=== PATIENT | male | born 1965 | race Two or more races ===

== ENCOUNTER → 2024-05-06 | Outpatient (CLI) | payer MEDICARE, MEDICAID, SELFPAY | END | disposition home or self-care (01) | PROVIDERS: PCP Physician Assistant; Referring Provider Physician Assistant; Visit Provider Student in an Organized Health Care Education/Training Program | DX: T22.311D Burn of third degree of right forearm, subsequent encounter (principal); L97.414 Non-pressure chronic ulcer of right heel and midfoot with necrosis of bone; L97.512 Non-pressure chronic ulcer of other part of right foot with fat layer exposed; L97.812 Non-pressure chronic ulcer of other part of right lower leg with fat layer exposed; L97.511 Non-pressure chronic ulcer of other part of right foot limited to breakdown of skin; F41.9 Anxiety disorder, unspecified; E11.40 Type 2 diabetes mellitus with diabetic neuropathy, unspecified; Z79.4 Long term (current) use of insulin; Z86.19 Personal history of other infectious and parasitic diseases; D64.9 Anemia, unspecified | CPT/HCPCS: 11042; A9270 ==

== ENCOUNTER 2024-05-17 10:17 | Inpatient (IN) | payer MEDICARE, MEDICAID, SELFPAY ==
[2024-05-17] VITALS (9 sets, daily range): BP systolic 115–145; BP diastolic 58–88; PULSE 82–100; RESP 18–96; TEMP 36.3–36.8; O2SAT 92–97; BMI 31.8; BMI 32.9
--- NOTE | 2024-05-17 11:03 | XR_ITS ---
Examination: AP chest single view Technique: AP portable upright chest single view Exam date and time: May 17, 2024 1116 hrs. Comparison: July 18, 2017 Indications: Sepsis protocol Findings: Normal heart size No lobar pneumonia Prominent osteopenia Impression: No lobar pneumonia identified
--- NOTE | 2024-05-17 11:03 | XR_ITS ---
EXAMINATION: Ankle, right 3 views . Technique: Ankle AP, oblique, lateral 3 views Date and time of exam: May 17, 2024 1108 hrs. Indications: Right ankle redness swelling and pain infection 2 months Findings: Bimalleolar soft tissue swelling No fracture Large ankle effusion Suspicious for early cortical bone destruction involving the posterior distal tibia Impression: Suspicious for early osteomyelitis posterior distal surface of the tibia, recommend MRI ankle without contrast follow-up
--- NOTE | 2024-05-17 11:03 | EKG_ITS ---
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
--- NOTE | 2024-05-17 11:03 | XR_ITS ---
Examination: Foot, left, 3 views Technique: AP, oblique, lateral views foot, 3 views Date and time of exam: May 17, 2024 1108 hrs. Indications: Right foot redness swelling and pain this week Findings: Please see the ankle report Chronic resorptive changes involving the distal phalanx first digit Erosion medial distal first metatarsal No fracture Erosions involving the cuboid with probable pathologic fracture of the cuboid Impression: Chronic osteomyelitis distal phalanx first digit Erosions, osteomyelitis involving the cuboid with probable pathologic fracture of the cuboid, recommend MRI foot without contrast follow-up
--- NOTE | 2024-05-17 11:03 | XR_ITS ---
Examination: Duplex scan of the lower extremity, unilateral right Date and time of exam: May 17, 2024 1206 hrs. Indications: Right Beginning 3 days ago, nonhealing diabetic foot ulcer years Technique: Duplex scan of the extremity veins using B-mode/grayscale imaging and Doppler spectral analysis and color flow Attention is directed to internal echogenicity, compression and augmentation involving these veins, color flow assessment, spectral analysis Findings: Major deep venous structures in the extremity demonstrate normal course and caliber. There is no evidence of deep vein thrombosis. Normal color flow and spectral analysis Impression: Negative for DVT..
--- NOTE | 2024-05-17 11:04 | PD.EDRME ---
Rapid Medical Screening Exam RME Arrival date/time: 05/17/24 10:17 58-year-old male with past medical history of diabetes and diabetic foot wounds presents emergency department complaining of right foot and ankle edema and chills. Chief Complaint: Ankle/Foot Injury Time Seen by Provider: 05/17/24 10:56 Vital signs: Vital Signs Temperature 98.2 F 05/17/24 10:43 Pulse Rate 88 05/17/24 10:43 Respiratory Rate 19 05/17/24 10:43 Blood Pressure 115/67 05/17/24 10:43 Pulse Oximetry (%) 96 05/17/24 10:43 Oxygen Delivery Method Room Air 05/17/24 10:43 Vital signs reviewed by provider: Yes
[2024-05-17 11:57] LABS: Lactate (Lactic Acid) 3.3 mMol/L (0.4-2.0)
[2024-05-17 12:00] LABS: Collection Type, Urine Clean Catch; RBC,Urine 0 /hpf (0-3)
[2024-05-17 12:01] LABS: Basophils # (Auto) 0.1 Thou/mm3 (0.0-0.2); Basophils % (Auto) 0 % (0-2.5); Eosinophils # (Auto) 0.1 Thou/mm3 (0.0-0.5); Eosinophils % (Auto) 1 % (0-10); Hematocrit 28.6 % (41.0-53.0); Immature Granulocytes % (Auto) 8 % (0-0); Immature Granulocytes Auto 1.53 Thou/mm3 (0.00-0.00); Lymphocytes # (Auto) 1.8 Thou/mm3 (1.0-4.8); Lymphocytes % (Auto) 10 % (10-50); Mean Corpuscular HGB Conc 30.4 g/dl (31.0-37.0); Mean Corpuscular Volume 76 fL (80-100); Monocytes % (Auto) 5 % (0-12); Neutrophils # (Auto) 14.4 Thou/mm3 (1.8-7.7); Neutrophils % (Auto) 76 % (37-80); Nucleated Red Blood Cell # 0.08 Thou/mm3 (0.00-0.00); Nucleated Red Blood Cell % 0 /100 WBC (0); Platelet Count 465 Thou/mm3 (140-440); RDW Standard Deviation 42.2 fL (35.1-43.9); Red Blood Count 3.78 Miln/mm3 (4.50-5.90)
[2024-05-17 12:08] LABS: Hemoglobin 8.7 g/dL (13.5-16.0)
[2024-05-17 12:21] LABS: Amorphous Crystals,Urine Present (Absent); Bilirubin,Urine Negative (Negative); Blood,Urine Negative (Negative); Color,Urine Yellow (Lt Yel-Yel); Glucose, Urine Trace (Negative); Ketones,Urine Negative (Negative); Leukocyte Esterase,Urine Negative (Negative); Nitrite,Urine Negative (Negative); Protein,Urine 1+ (Neg - Trace); Specific Gravity,Urine 1.024 (1.001-1.035); Squamous Epithelial Cell,Urine 1 /hpf (0-5); WBC,Urine 7 /hpf (0-5)
[2024-05-17 12:24] LABS: Clarity,Urine Hazy (Clear/Hazy)
[2024-05-17 12:25] LABS: Alanine Aminotransferase 15 U/L (10-49); Albumin, Serum 3.9 gm/dL (3.5-5.0); Albumin/Globulin Ratio 0.9 (1.2-2.2); Alkaline Phosphatase 211 U/L (46-116); Anion Gap 15 (7-16); Aspartate Amino Transferase 14 U/L (0-34); BUN/Creatinine Ratio 16 Ratio (12-20); Bilirubin,Total 0.6 mg/dL (0.3-1.2); Blood Urea Nitrogen 59 mg/dL (9-23); Calcium 9.4 mg/dL (8.3-10.6); Calcium (Corrected) 9.5 mg/dL (8.5-10.1); Carbon Dioxide 17.2 mMol/L (20.0-31.0); Chloride 101 mMol/L (98-107); Creatinine (Component) 3.8 mg/dL (0.6-1.3); Estimated Creatinine Clearance 26.4 mL/min (>60); Globulin 4.2 gm/dL (2.3-3.5); Glucose 215 mg/dL (74-106); Lipase 54 U/L (12-53); Magnesium 1.5 mg/dL (1.6-2.6); Osmolality,Calculated 288 (275-295); Phosphorous 4.2 mg/dL (2.4-5.1); Procalcitonin 2.02 ng/ml (0.0-0.49); Sodium 133 mMol/L (136-145); Total Protein 8.1 gm/dL (5.7-8.2); Troponin I < 0.020 ng/mL (0.0-0.045); eGFR 17 See Note
[2024-05-17 12:26] LABS: INR 1.2 (0.9-1.3); Partial Thromboplastin Time 26.3 Seconds (22.0-36.0); Prothrombin Time 12.7 Seconds (9.0-12.2)
[2024-05-17 12:49] LABS: B-Type Natriuretic Peptide 63 pg/mL (0-100)
--- NOTE | 2024-05-17 12:53 | XR_ITS ---
Examination: CT right lower extremity, without contrast. 2-D sagittal reconstructions. 2-D coronal reconstructions. 3-D reconstructions. Date and time of exam:May 17, 2024 1333 hrs. Indications: Right ankle swelling pain with nonhealing diabetic foot ulcer noticed beginning 4 days ago CTDI: vol (mGy):7.39 DLP: (mGycm):487 Technique: Multiple 1.25 mm axial sections of the right lower leg have been obtained. 2-D sagittal and coronal reconstructions have been obtained. 3-D reconstructions have been obtained. Low dose protocols were performed. One or more of the following dose reduction techniques were used; automated exposure control, adjustment of the mA and/or KV according to patient size, use of iterative reconstruction technique. Findings: Edema in the subcutaneous fatty tissue with skin thickening Soft tissue infection with air density in the muscles of the posterior lower ankle Large area of cortical bone destruction posterior medial distal tibia axial image 241 consistent with osteomyelitis Marked bone destruction involving the cuboid with pathologic fractures as well as pathologic fractures and cortical bone destruction involving the entire anterior calcaneus Impression: Pathologic fractures involving the cuboid and anterior calcaneus with extensive osteomyelitis as above Recommend MRI ankle without contrast follow-up
--- NOTE | 2024-05-17 13:03 | PC.NURSE ---
Attempted multiple times at IV, have failed, awaiting US guided IV.
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
[2024-05-17] MEDS: PIPER/TAZO 3.375 GM 3.375 GM/50 ML BAG IV (14:04)
[2024-05-17] MEDS: Vancomycin Inj 1,000 MG in SODIUM CHLORIDE 0.9% 250 ML 250 ML 150 MG IV (14:26)
[2024-05-17] MEDS: ONDANSETRON INJ 2 MG/ML INJ 2 ML 4 MG IV (14:27)
[2024-05-17] MEDS: MORPHINE SULF INJ 10 MG/ML VIAL 4 MG IVP (14:27)
[2024-05-17] MEDS: RINGERS LACTATED 1000 ML 1,000 ML 999 ML IV (14:32)
[2024-05-17 14:55] LABS: Reflex Lactate? Y
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
[2024-05-17 16:36] LABS: Lactic Acid, 3 HR 3.5 mMol/L (0.4-2.0)
[2024-05-17] MEDS: ACETAMINOPHEN 325 MG TABLET 650 MG PO ×2 (16:36→23:29)
[2024-05-17] MEDS: SODIUM CHLORIDE 0.9% 1000 ML 1,000 ML 75 ML IV (16:45)
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
[2024-05-17] MEDS: HEPARIN SOD INJ 5000 UNIT/ML VIAL SC (18:44)
[2024-05-17] MEDS: MORPHINE SULF INJ 10 MG/ML VIAL 2 MG IVP (19:20)
--- NOTE | 2024-05-17 20:01 | PC.NURSE ---
Dr gay notified of low diastolic HR 106. States he will take a look. No new orders at this time.
--- NOTE | 2024-05-17 20:05 | PC.NURSE ---
Dr gay notified of BP low diastolic 124/46 HR 100. No new orders at this time.
--- NOTE | 2024-05-17 20:53 | PC.NURSE ---
Dr gay called to request order for nursing to be allowed to use patients own insulin pump and blood sugar monitor versus nursing to poke patient as patient requests to use his own supplies and device. Harris states it is okay and he will place an order to allow nursing to use patients own insulin and pump.
[2024-05-17] MEDS: ATORVASTATIN CALCIUM 10 MG TABLET PO (21:23)
[2024-05-17] MEDS: PIPER/TAZO INJ 3.375 GM in SODIUM CHLORIDE 0.9% (P) 50 ML IV (21:39)
[2024-05-17] MEDS: MAGNESIUM OXIDE 400 MG TABLET PO (21:39)
[2024-05-17] MEDS: GABAPENTIN 100 MG CAPSULE PO (21:39)
--- NOTE | 2024-05-17 22:32 | PC.NURSE ---
Provider ordered IV magnesium, but patient only has 1 IV. When attempted to insert another IV the patient refused and said he is a hard stick so it is pointless and he does not want another IV. Pt has zosyn that will run for 4 hours and magnesium that would run for [address] gay requesting PO mag instead of IV. Harris stated to start the zosyn and give a 1 time PO dose of magnesium and once the zosyn is done, start the IV magnesium.
[2024-05-18] VITALS (9 sets, daily range): BP systolic 121–167; BP diastolic 58–70; PULSE 78–90; RESP 16–96; TEMP 35.9–36.1; O2SAT 90–92
[2024-05-18] MEDS: Magnesium Sulfate 4 GM Ivpb 4 GM/50 ML BAG IV (00:41)
[2024-05-18] MEDS: MORPHINE SULF INJ 10 MG/ML VIAL 2 MG IVP ×2 (01:42→18:06)
[2024-05-18] MEDS: ONDANSETRON INJ 2 MG/ML INJ 2 ML 4 MG IV ×2 (01:55→18:02)
--- NOTE | 2024-05-18 03:07 | PC.NURSE ---
spoke with dr gay regarding patients heparin dosage. Heparin was given late during dayshift, so deidra stated it is okay to give the morning heparin late at the 12 hour siddhartha.
[2024-05-18] MEDS: HEPARIN SOD INJ 5000 UNIT/ML VIAL SC ×2 (05:26→21:12)
[2024-05-18] MEDS: GABAPENTIN 100 MG CAPSULE PO ×3 (05:27→21:11)
[2024-05-18] MEDS: PIPER/TAZO INJ 3.375 GM in SODIUM CHLORIDE 0.9% (P) 50 ML IV ×3 (05:27→21:12)
[2024-05-18] MEDS: METOCLOPRAMIDE INJ 5 MG/ML VIAL 2 ML IVP (06:26)
[2024-05-18] MEDS: traMADol HCL 50 MG TABLET PO (06:33)
--- NOTE | 2024-05-18 07:47 | PC.NURSE ---
pt's blood sugar is 213 on his own monitor, he says he'll given himself 20 units
--- NOTE | 2024-05-18 09:13 | XR_ITS ---
Examination: Arterial duplex lower extremity study. Date and time of exam: May 18, 2024 1012 hrs. Indication: Right foot swelling infection obtained 4 days, history diabetes Findings: Duplex sonographic imaging of the lower extremity arteries using B-mode/Becker scale imaging and Doppler spectral analysis and color flow. Ankle brachial indices have been recorded. Right common femoral artery demonstrates triphasic flow. Right superficial femoral artery demonstrates triphasic flow. Right popliteal artery demonstrates triphasic flow. Right posterior tibial artery demonstrated monophasic flow. Right ankle/brachial index is .8. Left common femoral artery demonstrates triphasic flow. Left superficial femoral artery demonstrates triphasic flow. Left popliteal artery demonstrates triphasic flow. Left posterior tibial artery demonstrated triphasic flow. Left ankle/brachial index is 0.8. Impression: Severe bilateral peripheral obstructive arterial disease, consider correlation with CTA abdominal aorta iliofemoral runoff post intravenous contrast
[2024-05-18 12:35] LABS: Basophils # (Auto) 0.1 Thou/mm3 (0.0-0.2); Basophils % (Auto) 1 % (0-2.5); Eosinophils % (Auto) 0 % (0-10); Hematocrit 26.5 % (41.0-53.0); Immature Granulocytes % (Auto) 12 % (0-0); Immature Granulocytes Auto 1.98 Thou/mm3 (0.00-0.00); Lymphocytes # (Auto) 1.5 Thou/mm3 (1.0-4.8); Lymphocytes % (Auto) 9 % (10-50); Mean Corpuscular HGB Conc 32.1 g/dl (31.0-37.0); Mean Corpuscular Hemoglobin 23.2 pg (25.0-35.0); Mean Corpuscular Volume 72 fL (80-100); Monocytes % (Auto) 6 % (0-12); Neutrophils # (Auto) 12.2 Thou/mm3 (1.8-7.7); Neutrophils % (Auto) 72 % (37-80); Nucleated Red Blood Cell # 0.07 Thou/mm3 (0.00-0.00); Nucleated Red Blood Cell % 0 /100 WBC (0); Platelet Count 400 Thou/mm3 (140-440); Red Blood Count 3.67 Miln/mm3 (4.50-5.90); White Blood Count 16.8 Thou/mm3 (3.8-10.6)
[2024-05-18 12:48] LABS: Hemoglobin 8.5 g/dL (13.5-16.0)
[2024-05-18 12:51] LABS: Glucose Estimated Average 192 mg/dL (80-131); Hemoglobin A1C 8.3 % Hgb (4.8-6.0)
--- NOTE | 2024-05-18 13:04 | PD.SURCONS ---
HPI Consult details History of present illness: 58M with HTN, HLD, DM with insulin pump who presented with right foot swelling. Patient reports he has had a chronic wound however in the past few days the swelling became worse and associated with fevers, chills and pain. Patient has had some drainage from the medial aspect of the ankle. Patient had been prescribed oral antibiotics but did not see any improvement prompting him to seek care in ER. Upon arrival patient was found to have leukocytosis, PADDY as well as osteomyelitis of the posterior medial distal tibia as well as marked bone destruction with pathological fractures of the cuboid and anterior calcaneus. Orthopedics was consulted and recommended general surgery consultation for possible amputation. PMH: HTN, HLD, DM with insulin pump PSH: Cholecystectomy Meds: Baby aspirin, no other antiplatelet or anticoagulation Allergies: NKDA Review of Systems Review of Systems ROS Unobtainable: All systems reviewed & no additional complaints except as documented Meds Home Medications and Allergies Home Medications ?Medication ?Instructions ?Recorded ?Confirmed ?Type insulin glargine 100 unit/mL 60 unit subcut QAM #0 vials 08/13/14 History subcutaneous solution (Lantus U-100 Insulin) insulin lispro 100 unit/mL subcut AC #0 vials 08/13/14 History subcutaneous solution (Humalog U-100 Insulin) aspirin 81 mg tablet 81 mg PO 1XD 05/17/24 05/18/24 History atorvastatin 10 mg tablet (Lipitor) 10 mg 1XD 05/17/24 05/18/24 History dulaglutide 1.5 mg/0.5 mL 1.5 mg subcut 05/17/24 History subcutaneous pen injector (Trulicity) gabapentin 100 mg capsule 100 mg PO TID 05/17/24 05/18/24 History hydrochlorothiazide 25 mg tablet 25 mg PO QDAY 05/17/24 05/18/24 History lisinopril 40 mg tablet 40 mg 1XD 05/17/24 05/18/24 History metformin 1,000 mg tablet 1,000 mg 2XD 05/17/24 05/18/24 History methadone 10 mg/mL oral syringe 65 mg PO QDAY 05/17/24 05/18/24 History (FOR ORAL USE ONLY) metoprolol tartrate 50 mg tablet 50 mg 2XD 05/17/24 05/18/24 History Allergies Allergy/AdvReac Type Severity Reaction Status Date / Time NKA* Allergy Uncoded 05/17/24 10:19 Exam Vital Signs Temp Pulse Resp BP Pulse Ox O2 Del Method 97.0 F 84 20 167/70 H 92 L Room Air 05/18/24 11:46 05/18/24 11:46 05/18/24 11:46 05/18/24 11:46 05/18/24 11:46 05/18/24 11:46 Constitutional Constitutional: no acute distress Routine Respiratory Exam Respiratory: Present no resp distress Routine Extremities Exam Comments: Right foot markedly swollen, with mild drainage from the medial ankle. Nonpalpable pulses Results Results: Laboratory Laboratory results: results reviewed Results: Imaging Imaging narrative: X-ray, CT reviewed Assessment & Plan Plan 58M with HTN, HLD, DM2 on insulin pump presenting with acute on chronic right foot wound with osteomyelitis and pathologic fractures. Given the extensive nature of this osteomyelitis patient likely will need amputation, however we will first need to be optimized medically with improvement in PADDY and will also need vascular workup. Patient expressed understanding and is agreeable with this plan Trend creatinine Follow-up MAKI PVR Will follow
[2024-05-18 13:08] LABS: Alanine Aminotransferase 11 U/L (10-49); Albumin, Serum 3.3 gm/dL (3.5-5.0); Albumin/Globulin Ratio 0.9 (1.2-2.2); Alkaline Phosphatase 195 U/L (46-116); Anion Gap 12 (7-16); Aspartate Amino Transferase 12 U/L (0-34); BUN/Creatinine Ratio 19 Ratio (12-20); Bilirubin,Total 0.6 mg/dL (0.3-1.2); Blood Urea Nitrogen 54 mg/dL (9-23); C-Reactive Protein 31.7 mg/dL (0.0-0.9); Calcium 8.7 mg/dL (8.3-10.6); Calcium (Corrected) 9.3 mg/dL (8.5-10.1); Carbon Dioxide 19.5 mMol/L (20.0-31.0); Chloride 104 mMol/L (98-107); Cholesterol 185 mg/dL (132-200); Creatinine (Component) 2.8 mg/dL (0.6-1.3); Estimated Creatinine Clearance 36.4 mL/min (>60); Globulin 3.6 gm/dL (2.3-3.5); Glucose 263 mg/dL (74-106); HDL Cholesterol < 10 mg/dL (40-60); Osmolality,Calculated 293 (275-295); Phosphorous 3.1 mg/dL (2.4-5.1); Potassium 3.8 mMol/L (3.4-5.1); Sodium 135 mMol/L (136-145); Thyroid Stimulating Hormone 1.48 uIU/mL (0.55-4.78); Total Protein 6.9 gm/dL (5.7-8.2); Triglycerides 609 mg/dL (30-150); Vancomycin,Random 7.2 mcg/mL; eGFR 25 See Note
[2024-05-18] MEDS: ACETAMINOPHEN 325 MG TABLET 650 MG PO (13:23)
[2024-05-18] MEDS: DOXYCYCLINE 100 MG TABLET PO ×2 (13:24→21:11)
--- NOTE | 2024-05-18 13:28 | ESPR_ITS ---
<Statement entered by Shabbir Hernandez MD - 05/18/24 18:37> Patient is seen and examined at bedside. As per Dr. Torres the general surgeon she recommended to wait until we stabilize his kidney function and then the patient will need CT angio to rule out peripheral vascular disease before BKA. Patient was updated about the plan. We stopped the patient vancomycin due to the PADDY and switched to doxycycline. - Patient's plan and care discussed with my attending, Dr. Rod Hernandez MD Internal Medicine PGY-2 Documentation for date of: 05/18/24 Subjective Subjective Interval history: Patient examined at bedside today. No acute overnight events. Has no complaints this time, has been eating well, slept okay, no cough, no shortness of breath, no chest pain. Still has some pain in his right leg but is manageable. No other complaints at this time. Exam Vital Signs Temp Pulse Resp BP Pulse Ox O2 Del Method 97.0 F 84 20 167/70 H 92 L Room Air 05/18/24 11:46 05/18/24 11:46 05/18/24 11:46 05/18/24 11:46 05/18/24 11:46 05/18/24 11:46 Narrative Exam General: AAOx3, NAD, HEENT: Moist mucous membranes, conjunctiva clear, EOMI, PERRLA, Cardiovascular: S1, S2, radial pulses +2 bilat, RRR Pulmonary: CTAB bilat no cough, no wheezing GI: No tenderness to light or deep palpitation, no guarding, rigidity, rebound tenderness or distension Extremities: Various skin changes in the lower extremities, more so right lower extremity, with various stages of healing, some ulceration in right foot, no active bleeding, faint dorsalis pedis pulse on right foot, left dorsalis pedis pulse +2 Neuro: AAOx3, no focal motor or sensory deficits in the UE or LE bilat Psych: Good judgement, thought and behavior Objective Labs 05/30/24 05:33 05/30/24 05:33 Labs: Laboratory Results - last 24 hr 05/17/24 05/18/24 16:28 12:08 WBC 16.8 H RBC 3.67 L Hgb 8.5 L Hct 26.5 L MCV 72 L MCH 23.2 L MCHC 32.1 RDW Std Deviation 40.0 Plt Count 400 D Neut % (Auto) 72 Lymph % (Auto) 9 L [place] % (Auto) 6 Eos % (Auto) 0 Baso % (Auto) 1 Neut # (Auto) 12.2 H Lymph # (Auto) 1.5 [place] # (Auto) 1.0 H Eos # (Auto) 0.0 Baso # (Auto) 0.1 Immature Gran # (Auto) 1.98 H Absolute Nucleated RBC 0.07 H Immature Gran % 12 H Nucleated RBC % 0 Sodium 135 L Potassium 3.8 Chloride 104 Carbon Dioxide 19.5 L Anion Gap 12 BUN 54 H Creatinine 2.8 H D Estim Creat Clear Calc 36.4 L eGFR 25 L BUN/Creatinine Ratio [address] Glu mg/dL 192 H Hemoglobin A1c 8.3 H Calculated Osmolality 293 Lactic Acid 3.5 H Calcium 8.7 Corrected Calcium 9.3 Phosphorus 3.1 Magnesium 2.0 Total Bilirubin 0.6 AST 12 ALT 11 Alkaline Phosphatase 195 H C-Reactive Prot, Quant 31.7 H Total Protein 6.9 Albumin 3.3 L D Globulin 3.6 H Albumin/Globulin Ratio 0.9 L Triglycerides 609 H Cholesterol 185 LDL Cholesterol, Calc TNP HDL Cholesterol < 10 L Cholesterol/HDL Ratio 18.0 H TSH 1.48 Random Vancomycin 7.2 Quality Measures Quality Measures none Assessment & Plan Assessment Current Active Medications: Generic Name Dose Route Start Last Admin Trade Name Freq PRN Reason Stop Dose Admin Acetaminophen 650 mg 05/17/24 15:35 05/18/24 13:23 Acetaminophen 325 Mg Tablet PO 06/16/24 15:34 650 mg Q6H PRN Administration Pain (1-3) and Fever >101.5 Atorvastatin Calcium 10 mg 05/17/24 21:00 05/17/24 21:23 Atorvastatin Calcium 10 Mg Tablet PO 06/16/24 20:59 10 mg HS TRISTON Administration Patients Own Insulin 0 ea 05/17/24 16:33 Pump-Medtronic SC 06/16/24 16:29 Minimed DAILY TRISTON Dextrose 25 ml 05/17/24 15:35 Dextrose 50%-Water Inj 50 Ml Syringe IV 06/16/24 15:34 Q15MIN PRN BG 50-70 responsive npo pt Dextrose 50 ml 05/17/24 15:35 Dextrose 50%-Water Inj 50 Ml Syringe IV 06/16/24 15:34 Q15MIN PRN BG <50 OR BG <70 & pt unresponsive Doxycycline Hyclate 100 mg 05/18/24 12:00 05/18/24 13:24 Doxycycline 100 Mg Tablet PO 05/25/24 11:59 100 mg BID TRISTON Administration Gabapentin 100 mg 05/17/24 22:00 05/18/24 05:27 Gabapentin 100 Mg Capsule PO 06/16/24 21:59 100 mg TID TRISTON Administration Glucagon 1 mg 05/17/24 15:35 Glucagon Inj 1 Mg Vial IM Q15MIN PRN BG <70, and no IV access Heparin Sodium (Porcine) 5,000 unit 05/18/24 21:00 Heparin Sod Inj 5000 Unit/Ml Vial SC 05/31/24 15:44 Q12HR TRISTON Piperacillin Sod/Tazobactam 50 mls @ 12.5 mls/hr 05/17/24 22:00 05/18/24 05:27 Sod 3.375 gm/ Sodium Chloride IV 05/24/24 21:59 12.5 mls/hr Q8HR TRISTON Administration Morphine Sulfate 2 mg 05/17/24 15:35 05/18/24 01:42 Morphine Sulf Inj 10 Mg/Ml Vial IVP 05/22/24 15:34 2 mg Q6HR PRN Administration PAIN SCALE 7-10 (Severe Ondansetron HCl 4 mg 05/18/24 01:49 05/18/24 01:55 Ondansetron Inj 2 Mg/Ml Inj 2 Ml IV 06/17/24 01:48 4 mg Q6HR PRN Administration NAUSEA OR VOMITING Protocol Pharmacy Consult 1 each 05/18/24 11:39 Vancomycin Pharmacy To Dose 1 Each Each IV 06/17/24 11:38 QDAY PRN CONSULT Tramadol HCl 50 mg 05/17/24 15:35 05/18/24 06:33 Tramadol Hcl 50 Mg Tablet PO 05/22/24 15:34 50 mg Q6HR PRN Administration PAIN SCALE 4-6 (Moderate Plan Assessment: Mr. Muhammad is a 58-year-old male with past medical history of diabetes mellitus, hypertension, hyperlipidemia, chronic pain and IV heroin drug (currently on methadone) use who presented to [facility] with a chief complaint of right leg swelling and tenderness. Patient admitted for osteomyelitis right foot, possible surgical intervention with below knee amputation. # Osteomyelitis right foot # Diabetic right foot cellulitis # Pathological fracture of cuboid and calcaneus secondary to extensive osteomyelitis #Subtalar Charcot arthropathy # SIRS 2/4 positive Patient has history of uncontrolled diabetes, has chronic wound on right foot, which has progressively gotten worse despite outpatient wound care and oral antibiotics, patient reported extensive worsening of wound since Sunday Ankle x-ray done in ED suspicious for early osteomyelitis posterior distal surface of tibia, foot x-ray evident for chronic osteomyelitis distal phalanx first digit, erosions osteomyelitis involving the cuboid with probable pathological fracture of cuboid and CT scan of lower extremity showed pathological fracture involving cuboid and anterior calcaneus with extensive osteomyelitis Orthopedics consulted in the emergency department recommended general surgery consult for below-knee amputation. [facility] General Surgery, Dr. Manzanares, seen patient, is recommending BKA, however patient needs to be medically optimized with kidney function before pursuing surgery Lactate 1.8 today ESR ~130, CRP ~30 Covering MRSA with Doxy, discontinuing vancomycin due to PADDY Plan: -Zosyn and Doxy -Consulted general surgery, appreciate recommendations -Consulted orthopedics, appreciate recommendations -Follow ESR, CRP in a.m. -Follow CBC CMP in a.m. -BC NG1D -Possible surgical intervention with below-knee amputation -Tylenol, tramadol and morphine as needed for pain # Acute kidney injury, improving # ? PADDY on CKD Patient presented with BUN 59, creatinine 3.8 and GFR 17, baseline unknown Creatinine 2.8 today Plan: -Nephrology consulted in ED, appreciate recommendations -Patient given 1 L LR bolus in ED -Avoid nephrotoxic agents -Renally dose medications ?As above # Diabetes mellitus, insulin-dependent A1c of 8.3 -Patient uses insulin pump for management of diabetes with Humalog -Will continue insulin pump -Follow hemoglobin A1c in a.m. -Hypoglycemia protocol in place -Monitor fingerstick blood glucose ACHS -Carb consistent low diet # Hypertension # Hyperlipidemia -Blood pressure soft, patient on metoprolol tartrate 50 twice daily, lisinopril 40 daily and hydrochlorothiazide 25 daily at home will hold. -Hold lisinopril and hydrochlorothiazide due to PADDY -Resumed home dose atorvastatin 10 at bedtime # Chronic pain # History of IV heroin use # Methadone dependence -Resumed gabapentin 100 3 times daily ?Will consider resuming methadone # Electrolyte imbalances # Hypomagnesemia -Replete as needed DVT prophylaxis: Heparin GI prophylaxis: Not indicated Diet: Carb consistent low, renal, cardiac Lines: Peripheral IV Code status: Full code Case discussed with my attending physician, Dr. Velasco, and my senior resident, Dr. David Diamond PGY-1 Attending Provider Attestation/Addendum 58-year-old male with multiple comorbidities including hypertension, hyperlipidemia, type 2 diabetes mellitus on insulin and chronic pain syndrome on methadone who presented to the ER on 05/17/2024 with right leg swelling found to have osteomyelitis and subsequently plan for BKA. Briana, continue IV antibiotics and appreciate general surgery inputs. I reviewed above note and agree with findings and plans. I have also personally examined the patient with medicine team and went over assessment and plan with medical team including international marketing manager and resident physician.
[2024-05-18 14:17] LABS: Lactate (Lactic Acid) 1.8 mMol/L (0.4-2.0)
[2024-05-18 14:20] LABS: Sed Rate (ESR) > 130 mm/hr (0-20)
[2024-05-18] MEDS: POLYETHYLENE GLYCOL 17 GM PACKET PO (15:18)
[2024-05-18] MEDS: SENNA TABLET 1 TAB PO (15:18)
[2024-05-18] MEDS: PANTOPRAZOLE INJ 40 MG VIAL IV (15:18)
--- NOTE | 2024-05-18 16:19 | PC.SS ---
Rounding: Pending General SX consult
[2024-05-18] MEDS: ATORVASTATIN CALCIUM 10 MG TABLET PO (21:11)
--- NOTE | 2024-05-18 21:52 | PC.NURSE ---
pts blood sugar 190 on his own device, he stated he gave 3 units of insulin through his pump.
--- NOTE | 2024-05-18 22:43 | ESPR_ITS ---
RE: DENISHA SHERWOOD : 1965 DATE OF SERVICE: 05/18/2024 The patient is feeling considerably better today and is having less pain. His appetite is improved. He was seen by Dr. Manzanares and during his talk with Dr. Manzanares, she said that she had done 2 below-knee amputations before and she said she did not have a lot of experience with this type of operation. I did not participate in the discussion and I was not there. The family asked me to consult Dr. 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 Marked swelling still noted in left foot. Obvious deformity again noted with severely pronated foot. Temperature today was 97 with a pulse of 84, blood pressure 167/70, and pulse oximetry 92%. White count today is 16,800, down from 19,000 yesterday. Sodium 135, potassium 3.8, and creatinine has come down to 2.8 with the creatinine clearance of 36. Glucose 263. Hemoglobin A1c 8.3. Lactic acid 1.8, down from 3.5 on admission. The patient is still acutely ill. Not a candidate right now for below-knee amputation and hopefully will be ready in the next several days for that procedure. We will consult Dr. Epperson as per family's request. DT: 19:58:07 TT: 22:42:00 Ref: [id number] - TID: [id number]
[2024-05-19] VITALS (14 sets, daily range): BP systolic 130–176; BP diastolic 59–85; PULSE 74–96; RESP 15–94; TEMP 35.9–36.9; O2SAT 92–97
[2024-05-19] MEDS: ONDANSETRON INJ 2 MG/ML INJ 2 ML 4 MG IV (00:01)
[2024-05-19] MEDS: MORPHINE SULF INJ 10 MG/ML VIAL 2 MG IVP ×2 (00:04→07:56)
[2024-05-19] MEDS: ACETAMINOPHEN 325 MG TABLET 650 MG PO (01:58)
[2024-05-19] MEDS: METOCLOPRAMIDE INJ 5 MG/ML VIAL 2 ML IVP ×3 (03:55→22:05)
--- NOTE | 2024-05-19 04:12 | PC.NURSE ---
dr stover notified of pts BP 176/80 HR 86. States she will put in an order for one time dose of hydralazine PO.
[2024-05-19] MEDS: hydrALAZINE HCL 10 MG TABLET PO (04:21)
[2024-05-19] MEDS: GABAPENTIN 100 MG CAPSULE PO ×3 (05:31→22:03)
[2024-05-19] MEDS: PIPER/TAZO INJ 3.375 GM in SODIUM CHLORIDE 0.9% (P) 50 ML IV ×3 (05:31→22:06)
--- NOTE | 2024-05-19 05:47 | PC.NURSE ---
spoke to Dr julio regarding patient and family request to restart methodone. Mague stated she will put in the order to restart.
[2024-05-19 06:21] LABS: Basophils # (Auto) 0.1 Thou/mm3 (0.0-0.2); Basophils % (Auto) 1 % (0-2.5); Eosinophils # (Auto) 0.1 Thou/mm3 (0.0-0.5); Eosinophils % (Auto) 1 % (0-10); Hematocrit 27.2 % (41.0-53.0); Hemoglobin 8.9 g/dL (13.5-16.0); Immature Granulocytes % (Auto) 12 % (0-0); Immature Granulocytes Auto 2.27 Thou/mm3 (0.00-0.00); Lymphocytes # (Auto) 1.7 Thou/mm3 (1.0-4.8); Lymphocytes % (Auto) 9 % (10-50); Mean Corpuscular HGB Conc 32.7 g/dl (31.0-37.0); Mean Corpuscular Hemoglobin 23.4 pg (25.0-35.0); Mean Corpuscular Volume 71 fL (80-100); Monocytes # (Auto) 0.8 Thou/mm3 (0.0-0.8); Monocytes % (Auto) 4 % (0-12); Neutrophils # (Auto) 13.9 Thou/mm3 (1.8-7.7); Neutrophils % (Auto) 74 % (37-80); Nucleated Red Blood Cell # 0.09 Thou/mm3 (0.00-0.00); Nucleated Red Blood Cell % 1 /100 WBC (0); Platelet Count 442 Thou/mm3 (140-440); RDW Standard Deviation 38.2 fL (35.1-43.9); Red Blood Count 3.81 Miln/mm3 (4.50-5.90); White Blood Count 18.8 Thou/mm3 (3.8-10.6)
[2024-05-19 06:25] LABS: Alanine Aminotransferase 14 U/L (10-49); Albumin, Serum 3.6 gm/dL (3.5-5.0); Albumin/Globulin Ratio 0.9 (1.2-2.2); Alkaline Phosphatase 229 U/L (46-116); Anion Gap 13 (7-16); Aspartate Amino Transferase 11 U/L (0-34); BUN/Creatinine Ratio 24 Ratio (12-20); Bilirubin,Total 1.1 mg/dL (0.3-1.2); Blood Urea Nitrogen 50 mg/dL (9-23); Calcium 9.2 mg/dL (8.3-10.6); Calcium (Corrected) 9.5 mg/dL (8.5-10.1); Carbon Dioxide 22.4 mMol/L (20.0-31.0); Chloride 103 mMol/L (98-107); Creatinine (Component) 2.1 mg/dL (0.6-1.3); Estimated Creatinine Clearance 48.6 mL/min (>60); Globulin 3.9 gm/dL (2.3-3.5); Glucose 263 mg/dL (74-106); Magnesium 1.9 mg/dL (1.6-2.6); Osmolality,Calculated 297 (275-295); Potassium 3.1 mMol/L (3.4-5.1); Sodium 138 mMol/L (136-145); Total Protein 7.5 gm/dL (5.7-8.2); eGFR 36 See Note
--- NOTE | 2024-05-19 08:17 | ESPR_ITS ---
<Statement entered by Shabbir Hernandez MD - 05/20/24 18:42> Patient was seen and examined at bedside. And agree on the assessment and plan of this patient. - Patient's plan and care discussed with my attending, Dr. Rod Hernandez MD Internal Medicine PGY-2 Documentation for date of: 05/19/24 Subjective Subjective Interval history: Pt examined at bedside today, says he is feels okay, has not had a bowel movement, slept okay, and is wondering when he is going to get his operation. No other complaints at this time. Exam Vital Signs Temp Pulse Resp BP Pulse Ox O2 Del Method 98.4 F 75 17 170/78 H 95 Nasal Cannula 05/19/24 07:26 05/19/24 07:26 05/19/24 07:26 05/19/24 07:26 05/19/24 07:26 05/19/24 07:26 Narrative Exam General: AAOx3, NAD, HEENT: Moist mucous membranes, conjunctiva clear, EOMI, PERRLA, Cardiovascular: S1, S2, radial pulses +2 bilat, RRR Pulmonary: CTAB bilat no cough, no wheezing GI: No tenderness to light or deep palpitation, no guarding, rigidity, rebound tenderness or distension Extremities: Various skin changes in the lower extremities, more so right lower extremity, with various stages of healing, some ulceration in right foot, no active bleeding, faint dorsalis pedis pulse on right foot, left dorsalis pedis pulse +2 Neuro: AAOx3, no focal motor or sensory deficits in the UE or LE bilat Psych: Good judgement, thought and behavior Objective Labs 05/30/24 05:33 05/30/24 05:33 Labs: Laboratory Results - last 24 hr 05/18/24 05/18/24 05/19/24 12:08 14:11 05:31 WBC 16.8 H 18.8 H RBC 3.67 L 3.81 L Hgb 8.5 L 8.9 L Hct 26.5 L 27.2 L MCV 72 L 71 L MCH 23.2 L 23.4 L MCHC 32.1 32.7 RDW Std Deviation 40.0 38.2 Plt Count 400 D 442 H D Neut % (Auto) 72 74 Lymph % (Auto) 9 L 9 L [place] % (Auto) 6 4 Eos % (Auto) 0 1 Baso % (Auto) 1 1 Neut # (Auto) 12.2 H 13.9 H Lymph # (Auto) 1.5 1.7 [place] # (Auto) 1.0 H 0.8 Eos # (Auto) 0.0 0.1 Baso # (Auto) 0.1 0.1 Immature Gran # (Auto) 1.98 H 2.27 H Absolute Nucleated RBC 0.07 H 0.09 H Immature Gran % 12 H 12 H Nucleated RBC % 0 1 H ESR > 130 H Sodium 135 L 138 Potassium 3.8 3.1 L D Chloride 104 103 Carbon Dioxide 19.5 L 22.4 Anion Gap 12 13 BUN 54 H 50 H Creatinine 2.8 H D 2.1 H D Estim Creat Clear Calc 36.4 L 48.6 L eGFR 25 L 36 L BUN/Creatinine Ratio 19 24 H Glucose [address] Glu mg/dL 192 H Hemoglobin A1c 8.3 H Calculated Osmolality 293 297 H Lactic Acid 1.8 Calcium 8.7 9.2 Corrected Calcium 9.3 9.5 Phosphorus 3.1 Magnesium 2.0 1.9 Total Bilirubin 0.6 1.1 D AST 12 11 ALT 11 14 Alkaline Phosphatase 195 H 229 H D C-Reactive Prot, Quant 31.7 H Total Protein 6.9 7.5 Albumin 3.3 L D 3.6 Globulin 3.6 H 3.9 H Albumin/Globulin Ratio 0.9 L 0.9 L Triglycerides 609 H Cholesterol 185 LDL Cholesterol, Calc TNP HDL Cholesterol < 10 L Cholesterol/HDL Ratio 18.0 H TSH 1.48 Random Vancomycin 7.2 4.0 Quality Measures Quality Measures none Assessment & Plan Assessment Current Active Medications: Generic Name Dose Route Start Last Admin Trade Name Freq PRN Reason Stop Dose Admin Acetaminophen 650 mg 05/17/24 15:35 05/19/24 01:58 Acetaminophen 325 Mg Tablet PO 06/16/24 15:34 650 mg Q6H PRN Administration Pain (1-3) and Fever >101.5 Atorvastatin Calcium 10 mg 05/17/24 21:00 05/18/24 21:11 Atorvastatin Calcium 10 Mg Tablet PO 06/16/24 20:59 10 mg HS TRISTON Administration Patients Own Insulin 0 ea 05/17/24 16:33 Pump-Medtronic SC 06/16/24 16:29 Minimed DAILY TRISTON Dextrose 25 ml 05/17/24 15:35 Dextrose 50%-Water Inj 50 Ml Syringe IV 06/16/24 15:34 Q15MIN PRN BG 50-70 responsive npo pt Dextrose 50 ml 05/17/24 15:35 Dextrose 50%-Water Inj 50 Ml Syringe IV 06/16/24 15:34 Q15MIN PRN BG <50 OR BG <70 & pt unresponsive Doxycycline Hyclate 100 mg 05/18/24 12:00 05/18/24 21:11 Doxycycline 100 Mg Tablet PO 05/25/24 11:59 100 mg BID TRISTON Administration Gabapentin 100 mg 05/17/24 22:00 05/19/24 05:31 Gabapentin 100 Mg Capsule PO 06/16/24 21:59 100 mg TID TRISTON Administration Glucagon 1 mg 05/17/24 15:35 Glucagon Inj 1 Mg Vial IM Q15MIN PRN BG <70, and no IV access Heparin Sodium (Porcine) 5,000 unit 05/18/24 21:00 05/18/24 21:12 Heparin Sod Inj 5000 Unit/Ml Vial SC 05/31/24 15:44 5,000 unit Q12HR TRISTON Administration Piperacillin Sod/Tazobactam 50 mls @ 12.5 mls/hr 05/17/24 22:00 05/19/24 05:31 Sod 3.375 gm/ Sodium Chloride IV 05/24/24 21:59 12.5 mls/hr Q8HR TRISTON Administration Morphine Sulfate 2 mg 05/17/24 15:35 05/19/24 07:56 Morphine Sulf Inj 10 Mg/Ml Vial IVP 05/22/24 15:34 2 mg Q6HR PRN Administration PAIN SCALE 7-10 (Severe Non-Formulary Medication 65 mg 05/19/24 09:00 Methadone PO 06/18/24 08:59 QDAY TRISTON Ondansetron HCl 4 mg 05/18/24 01:49 05/19/24 00:01 Ondansetron Inj 2 Mg/Ml Inj 2 Ml IV 06/17/24 01:48 4 mg Q6HR PRN Administration NAUSEA OR VOMITING Protocol Pantoprazole Sodium 40 mg 05/18/24 14:00 05/18/24 15:18 Pantoprazole Inj 40 Mg Vial IV 06/17/24 13:59 40 mg QDAY TRISTON Administration Polyethylene Glycol 17 gm 05/18/24 13:55 05/18/24 15:18 Polyethylene Glycol 17 Gm Packet PO 06/17/24 13:54 17 gm QDAY TRISTON Administration Potassium Chloride 40 meq 05/19/24 08:13 Potassium Chloride 20 Meq Tabcr PO 05/19/24 08:14 X1 ONE Potassium Chloride 40 meq 05/19/24 12:00 Potassium Chloride 20 Meq Tabcr PO 05/19/24 12:01 X1 ONE Sennosides 1 tab 05/18/24 14:00 05/18/24 15:18 Senna Tablet PO 06/17/24 13:59 1 tab QDAY TRISTON Administration Protocol Tramadol HCl 50 mg 05/17/24 15:35 05/18/24 06:33 Tramadol Hcl 50 Mg Tablet PO 05/22/24 15:34 50 mg Q6HR PRN Administration PAIN SCALE 4-6 (Moderate Plan Assessment: Mr. Muhammad is a 58-year-old male with past medical history of diabetes mellitus, hypertension, hyperlipidemia, chronic pain and IV heroin drug (currently on methadone) use who presented to [facility] with a chief complaint of right leg swelling and tenderness. Patient admitted for osteomyelitis right foot, possible surgical intervention with below knee amputation. #Osteomyelitis right foot #Diabetic right foot cellulitis #Pathological fracture of cuboid and calcaneus secondary to extensive osteomyelitis #Subtalar Charcot arthropathy #SIRS 2/4 positive Patient has history of uncontrolled diabetes, has chronic wound on right foot, which has progressively gotten worse despite outpatient wound care and oral antibiotics, patient reported extensive worsening of wound since Sunday Ankle x-ray done in ED suspicious for early osteomyelitis posterior distal surface of tibia, foot x-ray evident for chronic osteomyelitis distal phalanx first digit, erosions osteomyelitis involving the cuboid with probable pathological fracture of cuboid and CT scan of lower extremity showed pathological fracture involving cuboid and anterior calcaneus with extensive osteomyelitis Orthopedics consulted in the emergency department recommended general surgery consult for below-knee amputation. [facility] General Surgery, Dr. Manzanares, seen patient, is recommending BKA, however patient needs to be medically optimized with kidney function before pursuing surgery Lactate 1.8 today ESR ~130, CRP ~30 Covering MRSA with Doxy, discontinuing vancomycin due to PADDY Dr Epperson seen patient, recommends two procedure amputation, first being guillotine amputation of the ankle not time for infection control and improve nutrition and kidney function. Second will be formal below knee amputation at a later time Plan: -Continue with Zosyn and Juan Antonioy -Consulted general surgery, appreciate recommendations -Consulted orthopedics, appreciate recommendations - STACIED -Surgery consult appreciate recs -Tylenol, tramadol for pain, will hold morphine # Acute kidney injury, improving # ? PADDY on CKD Patient presented with BUN 59, creatinine 3.8 and GFR 17, baseline unknown Creatinine 2.1 today, compared to 2.8 yesterday Plan: -Nephrology consulted in ED, appreciate recommendations -Patient given 1 L LR bolus in ED -Avoid nephrotoxic agents -Renally dose medications ?As above #Diabetes mellitus, insulin-dependent A1c of 8.3 Patient's blood sugars have not been controlled, have been in the 200s, will adjust management as patient currently uses insulin pump Will adjust insulin units throughout admission ?Stop insulin pump ?Glargine 13 units at bedtime ?SSI -Carb consistent low diet #Hypertension #Hyperlipidemia -Blood pressure soft, patient on metoprolol tartrate 50 twice daily, lisinopril 40 daily and hydrochlorothiazide 25 daily at home will hold. -Hold lisinopril and hydrochlorothiazide due to PADDY -Resumed home dose atorvastatin 10 at bedtime # Chronic pain # History of IV heroin use # Methadone dependence -Resumed gabapentin 100 3 times daily ?Resume home methadone 65 mg #Electrolyte imbalances #Hypomagnesemia -Replete as needed DVT prophylaxis: Heparin GI prophylaxis: Not indicated Diet: Carb consistent low, renal, cardiac Lines: Peripheral IV Code status: Full code Case discussed with my attending physician, Dr. Velasco, and my senior resident, Dr. David Diamond PGY-1 Attending Provider Attestation/Addendum 58-year-old male with multiple comorbidities including hypertension, hyperlipidemia, type 2 diabetes mellitus on insulin and chronic pain syndrome on methadone who presented to the ER on 05/17/2024 with right leg swelling found to have osteomyelitis and plan for BKA. Plan to continue IV antibiotics and appreciate general surgery inputs. I reviewed above note and agree with findings and plans. I have also personally examined the patient with medicine team and went over assessment and plan with medical team including financial intern and resident physician.
[2024-05-19] MEDS: METHADONE SOLUTION 1 MG/1 ML 65 MG PO (09:59)
[2024-05-19] MEDS: POTASSIUM CHL 10 mEq IVPB 10 MEQ/100 ML BAG 100 MEQ IV ×4 (10:03→14:18)
[2024-05-19] MEDS: DOXYCYCLINE 100 MG TABLET PO ×2 (10:03→21:14)
[2024-05-19] MEDS: NIFEdipine 10 MG CAPSULE PO ×3 (10:03→22:03)
[2024-05-19] MEDS: PANTOPRAZOLE INJ 40 MG VIAL IV (10:03)
[2024-05-19] MEDS: HEPARIN SOD INJ 5000 UNIT/ML VIAL SC ×2 (10:04→21:16)
[2024-05-19 10:14] LABS: Path Review Blood Smear Sent to Pathologist
--- NOTE | 2024-05-19 10:36 | PC.SS ---
Patient is alert/oriented. Patient admitted for right foot cellulitis. Patient states he resides with his and family . He is independent with ADL's. Patient has osteo of the right foot. Patient has hx: heroin drug use and on methadone. He has hx: diabetes and is on an infusion pump. Patient had a consult with Dr. Manzanares. Possible amputation. Patient states he follows with Dr. Oliveira at the [facility] on [facility]. His last appointment was 2 weeks ago. Pharmacy: [facility]. 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 D/c plan is to return home.
--- NOTE | 2024-05-19 10:55 | PC.NURSE ---
Notified Dr of onset of SOB and oxygen saturation between 88 and 90% RA. Oxygen started at 2L NC with continuous 02 monitoring
--- NOTE | 2024-05-19 11:11 | ECHO_ITS ---
Transthoracic Echo Report Ht (in): 72 Wt (lb): 243 Exam Location: Portable Status: Inpatient Missile Tracking Technician: Shakira Bautista Indications: Procedure Performed: BP: 169 / 78 HR: 91 Rhythm: Sinus Technical Quality: Technically difficult study MEASUREMENTS (Male / Female) Normal Values 2D ECHO LVOT Diameter 2.3 cm LA Volume Index 22.0 cm?/m? 16 - 28 cm?/m? Ascending Aorta Diameter 3.4 cm M-MODE Aortic Root Diameter MM 3.5 cm LA Systolic Diameter MM 4.2 cm LA Ao Ratio MM 1.2 AV Cusp Separation MM 2.5 cm DOPPLER AV Peak Velocity 121.0 cm/s AV Peak Gradient 5.9 mmHg AV Mean Gradient 4.0 mmHg AV Velocity Time Integral 24.6 cm LVOT Peak Velocity 109.0 cm/s LVOT Peak Gradient 4.8 mmHg LVOT Velocity Time Integral 23.6 cm LVOT Cardiac Index 3719.4 cm?/min?m? AV Area Cont Eq vti 4.0 cm? AV Area Cont Eq pk 3.7 cm? MV Peak Velocity 109.0 cm/s MV Peak Gradient 4.8 mmHg MV Mean Velocity 60.5 cm/s MV Mean Gradient 2.0 mmHg MV Area PHT 4.1 cm? Mitral E Point Velocity 56.8 cm/s Mitral A Point Velocity 93.6 cm/s Mitral E to A Ratio 0.6 LV E' Lateral Velocity 12.1 cm/s Mitral E to LV E' Lateral Ratio 4.7 LV E' Septal Velocity 7.5 cm/s Mitral E to LV E' Septal Ratio 7.6 FINDINGS Left Ventricle Normal left ventricular size, wall thickness. Moderate systolic dysfunction. Hypokinesis apex, apica l septal and lateral wall. The ejection fraction is visually estimated at 35-40 %. Right Ventricle The right ventricle is normal in size and systolic function. Left Atrium The left atrium is normal by two-dimensional, color flow and Doppler imaging with no structural abnormalities, no thrombus formation present. Right Atrium The right atrium is normal by two-dimensional imaging, color flow and Doppler imaging with no struct ural abnormalities, no thrombus formation present. Atrial Septum The interatrial septum appears normal with no evidence of a shunt. Aorta The aorta is normal by two-dimensional, color flow and Doppler interrogation. Mitral Valve The mitral valve is normal by two-dimensional, color flow and Doppler interrogation. There is trace mitral valve regurgitation. Aortic Valve The aortic valve is trileaflet and normal by two-dimensional, color flow and Doppler interrogation. There is no significant aortic valve regurgitation. Tricuspid Valve There is a suspicious echogenic mass on the tricuspid valve, possible vegetation or mass. There is n o significant tricuspid valve regurgitation. Pulmonic Valve The pulmonic valve is not well visualized. There is no significant pulmonic valve regurgitation. Vessels The pulmonary artery appears normal. The inferior vena cava pulmonary and hepatic veins appear javier l. Pericardium The pericardium is normal by two-dimensional imaging. There is no significant pericardial effusion. CONCLUSIONS There is a suspicious echogenic mass on the tricuspid valve, possible vegetation or mass. Consider T EE for further evaluation. Normal LV size. Moderate systolic dysfunction. Hypokinsis apex, apical septal and lateral wall. Arely matd EF 40% Normal RV size and function. Trace MR. Shailni Willett (Electronically Signed) Final Date: 20 May 2024 14:08
--- NOTE | 2024-05-19 12:01 | PD.SURCONS ---
HPI Consult details Consult date: 05/19/24 Reason for consultation narrative: Right foot osteomyelitis History of present illness: I was asked to evaluate the patient as per his 's request. 58-year-old male with history of diabetes, chronic osteomyelitis of right foot, chronic ulceration and venous hypertension of bilateral lower extremities, IVDA currently on methadone was admitted with worsening edema and infection of right foot. CT scan revealed significant osteomyelitis and ulceration. He was evaluated by Dr. Wallace was recommended below the knee amputation. Review of Systems Constitutional Constitutional: Denies chills and Denies fever(s) Cardiovascular Cardiovascular: Denies chest pain Respiratory Respiratory: Denies cough Gastrointestinal Gastrointestinal: Denies abdominal pain, Denies nausea and Denies vomiting Hematologic/Lymphatic Hematologic/Lymphatic: Denies easy bleeding and Reports easy bruising Past Medical History Surgical History OTHER SURGICAL HX: Cholecystectomy Social History SMOKING STATUS: Former smoker SUBSTANCE USE: IV drugs (In the past currently on methadone) ALCOHOL: Current Meds Home Medications and Allergies Home Medications ?Medication ?Instructions ?Recorded ?Confirmed ?Type insulin glargine 100 unit/mL 60 unit subcut QAM #0 vials 08/13/14 History subcutaneous solution (Lantus U-100 Insulin) insulin lispro 100 unit/mL subcut AC #0 vials 08/13/14 History subcutaneous solution (Humalog U-100 Insulin) aspirin 81 mg tablet 81 mg PO 1XD 05/17/24 05/18/24 History atorvastatin 10 mg tablet (Lipitor) 10 mg 1XD 05/17/24 05/18/24 History dulaglutide 1.5 mg/0.5 mL 1.5 mg subcut 05/17/24 History subcutaneous pen injector (Trulicity) gabapentin 100 mg capsule 100 mg PO TID 05/17/24 05/18/24 History hydrochlorothiazide 25 mg tablet 25 mg PO QDAY 05/17/24 05/18/24 History lisinopril 40 mg tablet 40 mg 1XD 05/17/24 05/18/24 History metformin 1,000 mg tablet 1,000 mg 2XD 05/17/24 05/18/24 History methadone 10 mg/mL oral syringe 65 mg PO QDAY 05/17/24 05/18/24 History (FOR ORAL USE ONLY) metoprolol tartrate 50 mg tablet 50 mg 2XD 05/17/24 05/18/24 History Allergies Allergy/AdvReac Type Severity Reaction Status Date / Time No Known Allergies Allergy Unverified 05/19/24 08:37 Exam Vital Signs Temp Pulse Resp BP Pulse Ox O2 Del Method 97.0 F 86 15 130/59 L 92 L Room Air 05/19/24 10:57 05/19/24 10:57 05/19/24 10:57 05/19/24 10:57 05/19/24 10:57 05/19/24 10:57 Constitutional Constitutional: no acute distress Routine Extremities Exam Comments: Significant edema and grossly infected right foot. Evidence of chronic venous hypertension and ulcerations of bilateral lower extremities Results Results: Laboratory Laboratory results: results reviewed Results: Imaging Imaging narrative: CT scan of right lower extremity images reviewed, radiologist interpretation noted Assessment & Plan Additional Assessment Additional comments: Significant osteomyelitis and grossly infected right foot Plan I had a lengthy discussion with the patient and his daughters. I agree that the patient will require below the knee amputation. However due to grossly infected right foot I recommended two-stage operation. Per stage is to do a guillotine amputation at the ankle and allow time to control infection and improve nutrition as well as kidney function. Second stage will be a formal below the knee amputation at a later time. Risks, benefits and alternatives to procedure discussed with the patient and his family and all their questions answered. He voiced understanding and agreed to proceed with the operations.
[2024-05-19] MEDS: INSULIN LISPRO (AdmeLOG) 1 UNIT/0.01 ML UNIT SC ×3 (12:04→23:54)
--- NOTE | 2024-05-19 12:39 | XR_ITS ---
Examination: Retroperitoneal ultrasound, complete Technique: Multiple high resolution grayscale images of the retroperitoneum obtained, including kidneys and bladder. Exam date and time:May 19, 2024 1428 hours INDICATIONS: Acute renal insufficiency diagnosis on laboratory examination May 17, 2024 FINDINGS: Right kidney 11.7 x 5.8 x 7.0 cm cortex 1.5 cm Left kidney 10.9 x 5.9 x 5.0 cm renal cortex 1.7 cm Mild to moderate bilateral renal parenchymal scar formation No hydronephrosis No bladder mass or bladder calculi Bladder prevoid volume 2 65 cc postvoid volume 52 cc Prostate 20.2 x 1.7 x 3.1 cm, no prostate nodules IMPRESSION: Bilateral renal cortical thinning Mild to moderate bilateral renal parenchymal scar formation No hydronephrosis
[2024-05-19] MEDS: POTASSIUM CHLORIDE 20 mEq TABCR 40 MEQ PO (12:47)
[2024-05-19] MEDS: traMADol HCL 50 MG TABLET PO (18:21)
[2024-05-19] MEDS: ATORVASTATIN CALCIUM 10 MG TABLET PO (21:14)
[2024-05-19] MEDS: INSULIN GLARGINE (Lantus) 5 UNIT/0.05 ML (PER 5 UNITS) 28 UNIT SC (21:15)
--- NOTE | 2024-05-19 21:48 | PD.ORTHCONPN ---
Subjective Subjective Brief History: Patient is 58-year-old male who has had diabetes for a number of years. He has had intermittent ulceration of the right foot since 2018 going on 7 years. He has developed increased pain and swelling of his right foot and his encouraged him to go to the emergency room he finally agreed to. Comes in with marked swelling of his right foot extending up midway to the tibia right lower extremity. Has felt hot weak and his was able to finally convince him that his right foot was a major problem requiring immediate attention. Has had small burn right forearm treated with wound care clinic. Walking and exercise tolerance has been markedly compromised for several years Narrative: Patient seen by Dr. Epperson. Guillotine amputation 12 3 Exam Vital Signs Temp Pulse Resp BP Pulse Ox O2 Del Method O2 Flow Rate 96.9 F 96 16 146/76 H 96 Nasal Cannula 2 05/19/24 20:00 05/19/24 20:00 05/19/24 20:00 05/19/24 20:00 05/19/24 20:00 05/19/24 20:00 05/19/24 14:02 Temp 96.9 Narrative Exam Less swelling right lower extremity Objective - Ortho Labs 05/19/24 05:31 05/19/24 05:31 Labs: Laboratory Results - last 24 hr 05/19/24 05:31 WBC 18.8 H RBC 3.81 L Hgb 8.9 L Hct 27.2 L MCV 71 L MCH 23.4 L MCHC 32.7 RDW Std Deviation 38.2 Plt Count 442 H D Neut % (Auto) 74 Lymph % (Auto) 9 L Kingman % (Auto) 4 Eos % (Auto) 1 Baso % (Auto) 1 Neut # (Auto) 13.9 H Lymph # (Auto) 1.7 Kingman # (Auto) 0.8 Eos # (Auto) 0.1 Baso # (Auto) 0.1 Immature Gran # (Auto) 2.27 H Absolute Nucleated RBC 0.09 H Immature Gran % 12 H Nucleated RBC % 1 H Smear Path Review Sent to Pathologist Sodium 138 Potassium 3.1 L D Chloride 103 Carbon Dioxide 22.4 Anion Gap 13 BUN 50 H Creatinine 2.1 H D Estim Creat Clear Calc 48.6 L eGFR 36 L BUN/Creatinine Ratio 24 H Glucose 263 H Calculated Osmolality 297 H Calcium 9.2 Corrected Calcium 9.5 Magnesium 1.9 Total Bilirubin 1.1 D AST 11 ALT 14 Alkaline Phosphatase 229 H D Total Protein 7.5 Albumin 3.6 Globulin 3.9 H Albumin/Globulin Ratio 0.9 L Random Vancomycin 4.0 Hemoglobin 8.9, creatinine better 2.1 Assessment & Plan Assessment Additional comments: Severely infected right foot with marked destruction of subtalar joint. I told the family they are making an excellent decision with amputation. His said they have been fighting this for years. We will feel much better. Will be much easier on his kidneys not having a chronically infected right foot. Plan Patient consulted with Dr. Epperson. Documentation for date of: 05/19/24
--- NOTE | 2024-05-19 23:38 | PC.NURSE ---
Addendum entered by Tanmay Obrien RN 05/19/24 23:47: Dr. Sandoval said to give 10 units lispro SC and recheck blood sugar in 30 minutes. Addendum entered by Tamnay Obrien RN 05/19/24 23:44: Charge nurse Kimberly notified and she stated Insulin cannot be pushed through IV on the Med/Surg floor. Original Note: Dr. Curran notified that patients midnight blood sugar is 427. Blood sugar recheked and it was 444. Dr. Curran put an order for 5 unit regular insulin x1.
--- NOTE | 2024-05-19 23:50 | PC.NURSE ---
Charge nurse made aware of patient blood sugar of 424 and verification blood sugar check of 444.
[2024-05-20] VITALS (20 sets, daily range): BP systolic 80–172; BP diastolic 43–90; PULSE 87–99; RESP 18–22; TEMP 36.2–37.2; O2SAT 95–98; BMI 32.9
--- NOTE | 2024-05-20 00:30 | ESCONSULT_ITS ---
RE: DENISHA SHERWOOD : 1965 DATE OF CONSULTATION: 05/19/2024 REASON FOR REFERRAL: Acute kidney injury. REFERRING PHYSICIAN: HISTORY OF PRESENT ILLNESS: This patient is a 58-year-old male with past medical history significant for type 2 diabetes, hypertension and history of substance abuse, currently on methadone, who presented to the emergency room on 05/17/2024 with right leg swelling and tenderness. The patient said that he has chronic wound on the right lower extremity and follows up with the wound care team. His right leg became worse on Sunday and he has concomitant fever. He also has severe leg pain. His said that he has been taking medication prescribed by provider; however, right leg pain continues as well as the swelling. When he presented to the emergency room, he was found with tachycardia and white count of 19,000. The patient also has an elevated procalcitonin level of 2.02. The patient has an ESR of more than 130 and a CRP of 31.7. The patient also was found with lactic acid level 3.5. He eventually had a CAT scan of the lower extremity and it showed pathological fracture involving cuboid and anterior calcaneus with extensive osteomyelitis. The patient was already seen by Dr. Epperson. He was initially started on doxycycline 100 mg p.o. b.i.d. I was asked to see the patient to manage his PADDY. His creatinine level peaked at 2.8 and his baseline creatinine level is about 0.9- 1.2. He also received plain LR 2 L while in the emergency room. Creatinine level started to improve and yesterday, it was 2.8 and today at 2.1. Family is by his bedside. He seems tired and sleepy. I was told also that he is being prepared for right BKA. CURRENT MEDICATIONS: 1. Methadone. 2. Metoclopramide. 3. Morphine. 4. Nifedipine 10 mg p.o. daily. 5. Ondansetron. 6. Protonix 40 mg IV daily. 7. Gabapentin 100 mg p.o. t.i.d. 8. Acetaminophen. 9. Atorvastatin. 10. Doxycycline 100 mg p.o. b.i.d. PHYSICAL EXAMINATION: GENERAL: He is awake, but does not open his eyes. All family members are by his bedside. VITAL SIGNS: Blood pressure is 146/76 and heart rate of 95. HEENT: Anicteric sclerae. Normocephalic. NECK: Supple. No JVD. CHEST AND LUNGS: Symmetric expansion. Clear breath sounds. HEART: Without murmur. ABDOMEN: Soft and nontender. EXTREMITIES: No edema. LABORATORY DATA: Sodium 138, potassium 3.1, chloride 102, CO2 of 22.4, BUN 50, creatinine 2.1, and glucose 263. Lactic acid 1.8. Sodium 138, potassium 3.1, chloride 103, CO2 of 22.4, BUN 50, creatinine 4.1, calcium 9.5, and magnesium 1.9. ASSESSMENT: 1. Non-oliguric acute kidney injury most likely secondary to sepsis leading to PADDY, which started improving with volume resuscitation and hemodynamic stability. 2. Hypertension. 3. Type 2 diabetes. 4. Sepsis. 5. Anemia of chronic inflammation. PLAN: Continue monitoring urine output, kidney function and electrolytes on a daily basis. He should avoid all kinds of NSAIDs and medications that can cause acute kidney injury like Vancomycin. Other options for MRSA infection are Daptomycin or Linezolid. I will continue to monitor his urine output and kidney function on a daily basis. DT: 23:05:31 TT: 00:20:00 Ref: [id number] - TID: [id number] [facility]
--- NOTE | 2024-05-20 00:31 | PC.NURSE ---
Was contacted by Dr. Curran and gave her a follow up patient's blood sugar. Notified Dr. Curran that patient's blood sugar went from 444 to 413 after patient was given 10 units of lispro as ordered by . Per , will callback nurse.
[2024-05-20] MEDS: traMADol HCL 50 MG TABLET PO ×2 (00:59→22:26)
--- NOTE | 2024-05-20 04:54 | PC.NURSE ---
Addendum entered by Tanmay Obrien RN 05/20/24 05:38: Hospitalist said to give 15 units of lispro. DARYL Donato notified Charge Nurse, Kimberly and HUSSAIN said to oder lab confirmation before any intervention. Original Note: Hospitalist made aware that patients blood sugar is 431.
[2024-05-20] MEDS: PIPER/TAZO INJ 3.375 GM in SODIUM CHLORIDE 0.9% (P) 50 ML IV ×3 (05:17→22:11)
[2024-05-20] MEDS: METOCLOPRAMIDE INJ 5 MG/ML VIAL 2 ML IVP ×3 (05:17→22:10)
[2024-05-20 05:52] LABS: Basophils # (Auto) 0.1 Thou/mm3 (0.0-0.2); Basophils % (Auto) 1 % (0-2.5); Eosinophils # (Auto) 0.1 Thou/mm3 (0.0-0.5); Eosinophils % (Auto) 0 % (0-10); Hematocrit 26.6 % (41.0-53.0); Immature Granulocytes % (Auto) 13 % (0-0); Immature Granulocytes Auto 2.83 Thou/mm3 (0.00-0.00); Lymphocytes # (Auto) 2.3 Thou/mm3 (1.0-4.8); Lymphocytes % (Auto) 10 % (10-50); Mean Corpuscular HGB Conc 32.3 g/dl (31.0-37.0); Mean Corpuscular Hemoglobin 23.1 pg (25.0-35.0); Mean Corpuscular Volume 72 fL (80-100); Monocytes # (Auto) 1.5 Thou/mm3 (0.0-0.8); Monocytes % (Auto) 7 % (0-12); Neutrophils # (Auto) 15.4 Thou/mm3 (1.8-7.7); Neutrophils % (Auto) 70 % (37-80); Nucleated Red Blood Cell # 0.09 Thou/mm3 (0.00-0.00); Nucleated Red Blood Cell % 0 /100 WBC (0); Platelet Count 363 Thou/mm3 (140-440); RDW Standard Deviation 38.7 fL (35.1-43.9); Red Blood Count 3.72 Miln/mm3 (4.50-5.90)
[2024-05-20 05:54] LABS: Hemoglobin 8.6 g/dL (13.5-16.0); White Blood Count 22.2 Thou/mm3 (3.8-10.6)
[2024-05-20 07:16] LABS: Alanine Aminotransferase 15 U/L (10-49); Albumin, Serum 3.6 gm/dL (3.5-5.0); Albumin/Globulin Ratio 0.9 (1.2-2.2); Alkaline Phosphatase 334 U/L (46-116); Anion Gap 13 (7-16); Aspartate Amino Transferase 24 U/L (0-34); BUN/Creatinine Ratio 25 Ratio (12-20); Bilirubin,Total 0.9 mg/dL (0.3-1.2); Blood Urea Nitrogen 42 mg/dL (9-23); Calcium 9.4 mg/dL (8.3-10.6); Calcium (Corrected) 9.7 mg/dL (8.5-10.1); Carbon Dioxide 21.8 mMol/L (20.0-31.0); Chloride 98 mMol/L (98-107); Creatinine (Component) 1.7 mg/dL (0.6-1.3); Globulin 4.2 gm/dL (2.3-3.5); Glucose 457 mg/dL (74-106); Magnesium 1.5 mg/dL (1.6-2.6); Osmolality,Calculated 296 (275-295); Sodium 133 mMol/L (136-145); Total Protein 7.8 gm/dL (5.7-8.2); eGFR 46 See Note
--- NOTE | 2024-05-20 07:16 | PC.NURSE ---
bedside blood sugar 470, administered 20 units lispro per protocol. attempted to notify MD but no answer
[2024-05-20] MEDS: INSULIN LISPRO (AdmeLOG) 1 UNIT/0.01 ML UNIT SC ×2 (07:17→19:08)
--- NOTE | 2024-05-20 07:30 | PC.NURSE ---
Notified dr Sierra of elevated bloodsugar, serum glucose and administered insulin. IV insulin ordered. Notified MD that we cannot give IV insulin on this floor per protocol.
--- NOTE | 2024-05-20 07:35 | PC.NURSE ---
Received call from DR Diamond inquiring about the policy and ordered IV Regular insulin. Pulled of the Drug info binder with MD on the phone, communicated that for hyperglycemia IV Regular insulin may be given in ER, ICU and L&D. No plans to transfer to ICU at this time.
[2024-05-20] MEDS: INSULIN LISPRO (AdmeLOG) 1 UNIT/0.01 ML UNIT 20 UNIT SC ×3 (08:28→22:08)
--- NOTE | 2024-05-20 08:34 | PC.NURSE ---
Notified Dr Diamond of [facility] BS 422. Administered second time 20units lispro per order. Additionally, notified that patient is NPO for surgery and has severe pain. Unable to administer oral methadone and patient requesting morphine. Per MD, morphine will not be resumed and MD will be in to assess and speak with patient.
--- NOTE | 2024-05-20 09:35 | ESPR_ITS ---
<Statement entered by Shabbir Hernandez MD - 05/20/24 18:43> Patient was seen and examined at bedside. And agree on the assessment and plan of this patient. - Patient's plan and care discussed with my attending, Dr. Rod Hernandez MD Internal Medicine PGY-2 Documentation for date of: 05/20/24 Subjective Subjective Interval history: Patient examined at bedside today. Family present at bedside as well. Overnight events included blood sugar going up to the 400s. Patient reports that he is not doing well, he is experiencing pain, is requesting methadone, and is requesting something to drink as well. He is wondering when his negative surgery done and when he can eat. Exam Vital Signs Temp Pulse Resp BP Pulse Ox O2 Del Method O2 Flow Rate 97.3 F 91 19 169/78 H 97 Nasal Cannula 2 05/20/24 07:44 05/20/24 07:44 05/20/24 07:44 05/20/24 07:44 05/20/24 07:44 05/20/24 07:44 05/20/24 07:44 Narrative Exam General: AAOx3, NAD, HEENT: Moist mucous membranes, conjunctiva clear, EOMI, PERRLA, Cardiovascular: S1, S2, radial pulses +2 bilat, RRR Pulmonary: CTAB bilat no cough, no wheezing GI: No tenderness to light or deep palpitation, no guarding, rigidity, rebound tenderness or distension Extremities: Various skin changes in the lower extremities, more so right lower extremity, with various stages of healing, some ulceration in right foot, no active bleeding, faint dorsalis pedis pulse on right foot, left dorsalis pedis pulse +2 Neuro: AAOx3, no focal motor or sensory deficits in the UE or LE bilat Psych: Good judgement, thought and behavior Objective Labs 05/30/24 05:33 05/30/24 05:33 Labs: Laboratory Results - last 24 hr 05/19/24 05/20/24 05/20/24 05:31 05:00 05:16 WBC 22.2 H RBC 3.72 L Hgb 8.6 L Hct 26.6 L MCV 72 L MCH 23.1 L MCHC 32.3 RDW Std Deviation 38.7 Plt Count 363 D Neut % (Auto) 70 Lymph % (Auto) 10 [place] % (Auto) 7 Eos % (Auto) 0 Baso % (Auto) 1 Neut # (Auto) 15.4 H Lymph # (Auto) 2.3 [place] # (Auto) 1.5 H Eos # (Auto) 0.1 Baso # (Auto) 0.1 Immature Gran # (Auto) 2.83 H Absolute Nucleated RBC 0.09 H Immature Gran % 13 H Nucleated RBC % 0 Smear Path Review Sent to Pathologist Sodium 133 L Potassium 4.0 D Chloride 98 Carbon Dioxide 21.8 Anion Gap 13 BUN 42 H Creatinine 1.7 H Estim Creat Clear Calc 60.0 L eGFR 46 L BUN/Creatinine Ratio 25 H Glucose 457 H* D Calculated Osmolality 296 H Calcium 9.4 Corrected Calcium 9.7 Magnesium 1.5 L Total Bilirubin 0.9 AST 24 ALT 15 Alkaline Phosphatase 334 H D Total Protein 7.8 Albumin 3.6 Globulin 4.2 H Albumin/Globulin Ratio 0.9 L Quality Measures Quality Measures none Assessment & Plan Assessment Current Active Medications: Generic Name Dose Route Start Last Admin Trade Name Freq PRN Reason Stop Dose Admin Acetaminophen 650 mg 05/17/24 15:35 05/19/24 01:58 Acetaminophen 325 Mg Tablet PO 06/16/24 15:34 650 mg Q6H PRN Administration Pain (1-3) and Fever >101.5 Atorvastatin Calcium 10 mg 05/17/24 21:00 05/19/24 21:14 Atorvastatin Calcium 10 Mg Tablet PO 06/16/24 20:59 10 mg HS TRISTON Administration Patients Own Insulin 0 ea 05/17/24 16:33 05/20/24 08:01 Pump-Medtronic SC 06/16/24 16:29 Not Given Minimed DAILY TRISTON Dextrose 25 ml 05/19/24 08:36 Dextrose 50%-Water Inj 50 Ml Syringe IV 06/18/24 08:35 Q15MIN PRN BG 50-70 responsive npo pt Dextrose 50 ml 05/19/24 08:36 Dextrose 50%-Water Inj 50 Ml Syringe IV 06/18/24 08:35 Q15MIN PRN BG <50 OR BG <70 & pt unresponsive Doxycycline Hyclate 100 mg 05/18/24 12:00 05/20/24 08:02 Doxycycline 100 Mg Tablet PO 05/25/24 11:59 Not Given BID TRISTON Gabapentin 100 mg 05/17/24 22:00 05/20/24 05:07 Gabapentin 100 Mg Capsule PO 06/16/24 21:59 Not Given TID [facility] Glucagon 1 mg 05/17/24 15:35 Glucagon Inj 1 Mg Vial IM Q15MIN PRN BG <70, and no IV access Heparin Sodium (Porcine) 5,000 unit 05/18/24 21:00 05/20/24 08:02 Heparin Sod Inj 5000 Unit/Ml Vial SC 05/31/24 15:44 Not Given Q12HR [facility] Piperacillin Sod/Tazobactam 50 mls @ 12.5 mls/hr 05/17/24 22:00 05/20/24 05:17 Sod 3.375 gm/ Sodium Chloride IV 05/24/24 21:59 12.5 mls/hr Q8HR TRISTON Administration Magnesium Sulfate 2 gm in 50 mls @ 25 mls/hr 05/20/24 08:03 Magnesium Sulfate Ivpb IV 05/20/24 10:02 X1 ONE Insulin Glargine 28 unit 05/20/24 21:00 Insulin Glargine (Lantus) 5 Unit/0.05 Ml (Per 5 Units) SC 06/18/24 20:59 HS [facility] Insulin Human Lispro 0 unit 05/19/24 18:00 05/20/24 07:17 Insulin Lispro (Admelog) 1 Unit/0.01 Ml Unit SC 06/18/24 17:59 20 unit Q6HR [facility] Administration Protocol Methadone HCl 65 mg 05/19/24 09:00 05/20/24 08:02 Methadone Solution 1 Mg/1 Ml PO 05/24/24 08:59 Not Given QDAY [facility] Protocol Metoclopramide HCl 5 mg 05/19/24 14:00 05/20/24 05:17 Metoclopramide Inj 5 Mg/Ml Vial 2 Ml IVP 06/18/24 13:59 5 mg Q8HR [facility] Administration Protocol Morphine Sulfate 2 mg 05/17/24 15:35 05/19/24 07:56 Morphine Sulf Inj 10 Mg/Ml Vial IVP 05/22/24 15:34 2 mg Q6HR PRN Administration PAIN SCALE 7-10 (Severe Nifedipine 10 mg 05/19/24 08:30 05/20/24 05:07 Nifedipine 10 Mg Capsule PO 06/18/24 08:29 Not Given TID [facility] Ondansetron HCl 4 mg 05/18/24 01:49 05/19/24 00:01 Ondansetron Inj 2 Mg/Ml Inj 2 Ml IV 06/17/24 01:48 4 mg Q6HR PRN Administration NAUSEA OR VOMITING Protocol Pantoprazole Sodium 40 mg 05/18/24 14:00 05/19/24 10:03 Pantoprazole Inj 40 Mg Vial IV 06/17/24 13:59 40 mg QDAY [facility] Administration Polyethylene Glycol 17 gm 05/18/24 13:55 05/20/24 08:01 Polyethylene Glycol 17 Gm Packet PO 06/17/24 13:54 Not Given QDAY [facility] Sennosides 1 tab 05/18/24 14:00 05/20/24 08:01 Senna Tablet PO 06/17/24 13:59 Not Given QDAY [facility] Protocol Tramadol HCl 50 mg 05/17/24 15:35 05/20/24 00:59 Tramadol Hcl 50 Mg Tablet PO 05/22/24 15:34 50 mg Q6HR PRN Administration PAIN SCALE 4-6 (Moderate Plan Assessment: Mr. Muhammad is a 58-year-old male with past medical history of diabetes mellitus, hypertension, hyperlipidemia, chronic pain and IV heroin drug (currently on methadone) use who presented to [facility] with a chief complaint of right leg swelling and tenderness. Patient admitted for osteomyelitis right foot, possible surgical intervention with below knee amputation. #Osteomyelitis right foot #Diabetic right foot cellulitis #Pathological fracture of cuboid and calcaneus secondary to extensive osteomyelitis #Subtalar Charcot arthropathy #SIRS 2/4 positive Patient to get procedure 1 of 2 today first involving guillotine amputation. Will receive other operation, for BKA, once patient improves. Plan: -Continue with Zosyn and Doxy ?Guillotine amputation today - NG2D -Surgery consult appreciate recs -Tylenol, tramadol for pain, will hold morphine # Acute kidney injury, improving # ? PADDY on CKD Patient presented with BUN 59, creatinine 3.8 and GFR 17, baseline unknown Creatinine 1.7 today, compared to 2.1 yesterday Plan: -Nephrology consulted in ED, appreciate recommendations -Avoid nephrotoxic agents -Renally dose medications ?As above #Diabetes mellitus, insulin-dependent A1c of 8.3 Patient's blood sugars have not been controlled, have been in the 200s, will adjust management as patient currently uses insulin pump Will adjust insulin units throughout admission Insulin pump was removed initially because sugars weren't controlled and then was put on basal and SSI, as per family, pt was removing pump by himself w/o notifying nurses and providers Sugars continued to elevate overnight, sugars reaching 400s Family wants to use insulin pump and said they will put his insulin pump by themselves if his blood sugar continues to be above 300 We explained to them that the plan is to control his blood sugar and we want to know how to control his blood sugar in predictable fashion and putting the insulin pump without notifiying the provider can put patient at risk for hypoglycemia and further complications Plan: ?Stopping Basal insulin -SSI sensitive -Resuming Insulin pump -Glucose checks q4h -Carb consistent low diet #Hypertension #Hyperlipidemia -Blood pressure soft, patient on metoprolol tartrate 50 twice daily, lisinopril 40 daily and hydrochlorothiazide 25 daily at home will hold. -Hold lisinopril and hydrochlorothiazide due to PADDY -Resumed home dose atorvastatin 10 at bedtime -Resumed nifedipine 10 mg TID # Chronic pain # History of IV heroin use # Methadone dependence -Resumed gabapentin 100 3 times daily ?Resume home methadone 65 mg -Dilaudid x1 0.5 mg s/p surgery #Electrolyte imbalances #Hypomagnesemia -Replete as needed DVT prophylaxis: Heparin GI prophylaxis: Not indicated Diet: Carb consistent low, renal, cardiac Lines: Peripheral IV Code status: Full code Case discussed with my attending physician, Dr. Velasco, and my senior resident, Dr. David Diamond PGY-1 Attending Provider Attestation/Addendum I reviewed above note and agree with findings and plans. I have also personally examined the patient with medicine team and went over assessment and plan with medical team including hospital intern and resident physician.
[2024-05-20] MEDS: METHADONE SOLUTION 1 MG/1 ML 65 MG PO (09:44)
[2024-05-20] MEDS: NIFEdipine 10 MG CAPSULE PO ×2 (09:45→15:43)
[2024-05-20] MEDS: PANTOPRAZOLE INJ 40 MG VIAL IV (09:46)
[2024-05-20] MEDS: Magnesium Sulfate 2 GM Ivpb 2 GM/50 ML BAG IV (10:09)
[2024-05-20] MEDS: INSULIN LISPRO (AdmeLOG) 1 UNIT/0.01 ML UNIT 10 UNIT SC (11:08)
--- NOTE | 2024-05-20 11:31 | PC.NURSE ---
patient to surgery via [facility]
--- NOTE | 2024-05-20 12:44 | PD.SUROPNT ---
Date of Procedure 05/20/24 Pre Op Diagnosis Osteomyelitis and grossly infected right foot Post Op Diagnosis Osteomyelitis and grossly infected right foot Procedure Guillotine amputation of right leg at the ankle Findings Grossly infected right foot with significant purulent drainage. Purulence was extending up to mid leg Procedure Description Patient presents for operating room in supine position. After administration of general tracheal anesthesia, patient's right lower extremity prepped and draped in standard surgical manner. Using a Gigli saw guillotine amputation was performed at the level of right ankle. Patient was noted to have patent anterior tibial artery and posterior tibial artery, peroneal artery was occluded. Anterior and posterior tibial vessels were ligated with 0 silk ties and the smaller vessels were ligated with 2-0 silk. The remainder of the venous bleeding's were cauterized. Patient was not of significant amount of purulent drainage from the right foot, cultures were obtained. Purulent cavities were extending up to mid leg. The cavities of purulence were evacuated. The cavities were washed and irrigated with copious amount of Betadine mixed with peroxide and saline and further washed with warm saline. Hemostasis was adequate and satisfactory. The wound was packed with wet-to-dry dressings. Patient tolerated the procedure well. He was extubated, breathing spontaneously and without difficulty and was transferred to postanesthesia care in stable condition. Instruments, needles and sponge counts were reported to be correct x 2. Anesthesia GETA Pathology / specimen Other (Right foot) Estimated Blood Loss 50 Condition Stable Disposition PACU Surgeon George Epperson MD Surgical Staff Operation Date: 05/20/24 12:45 <No data on this case meets the specified criteria>
--- NOTE | 2024-05-20 12:55 | SUR.PHASEI ---
1255 Patient arrived to recovery resting comfortably in [facility], on oxygen 8L via oxy mask with an oral airway in place, breathing unlabored, vital signs stable, dressing intact to right lower extremity; fluffs, kerlix roll, silk tape, no bleeding noted, lung sounds clear upon auscultation, bilateral radial pulses present when palpated, report received from Alexis BRITO and Dr. Hubbard
--- NOTE | 2024-05-20 13:00 | SUR.PHASEI ---
1300 patient right leg elevated with two pillows per MD order
--- NOTE | 2024-05-20 13:20 | SUR.PHASEI ---
1320 Report given to Diane BRITO to assume care over patient
--- NOTE | 2024-05-20 13:30 | SUR.PHASEI ---
report called to feroz on ms. pt transported via gurney. denies pain and nausea. vss. breathing even and unlabored. dressing remains cdi.
[2024-05-20] MEDS: HYDROmorphone INJ 2 MG/ML VIAL 0.5 MG IVP (15:06)
[2024-05-20] MEDS: GABAPENTIN 100 MG CAPSULE PO ×2 (15:43→22:11)
--- NOTE | 2024-05-20 15:50 | PC.NURSE ---
patient back from surgery. dressing to right leg CDI. Stable vitals. pain 8/10
--- NOTE | 2024-05-20 15:50 | PC.SS ---
SS met with pt and this morning to provide options for d/c to home or SNF. and pt are open to SNF if pt is requires maximum assistance and is unable to ambulate to bedside commode. Pt is having surgery for below the knee amputation today.
[2024-05-20] MEDS: ACETAMINOPHEN IVPB 1,000 MG/100 ML VIAL 250 MG IV ×2 (16:00→22:27)
--- NOTE | 2024-05-20 16:00 | PC.NURSE ---
Hospitalist residents in to see patient. Long discussion regarding replacing insulin pump took place. After much time and explaining our insulin protocols and why our protocols are in place, patient and declined and decided they would place the insulin pump back and manage his insulin as they were at home. Hospitalists conferred with attending who authorized this. The sensitive sliding scale was added for spikes, Q4H bedside blood glucose checks to monitor closer for hypoglycemia, and lantus was discontinued.
--- NOTE | 2024-05-20 16:10 | ESPR_ITS ---
RE: DENISHA SHERWOOD : 1965 DATE OF SERVICE: 05/20/2024 SUBJECTIVE: Briefly, he is 58-year-old male with type 2 diabetes, hypertension, history of substance abuse, currently on methadone, who was admitted on 05/17/2024 with right leg swelling and tenderness and was found with extensive osteomyelitis of right lower leg and right ankle. He was septic with an elevated lactic acid level of 3.5. He was also found with an elevated creatinine level of 2.8, which now went down to 1.7 after volume resuscitation. The patient is doing better and now resting in his own room. CURRENT MEDICATIONS: 1. Methadone. 2. Metoclopramide. 3. Morphine. 4. Nifedipine. 5. Ondansetron. 6. Protonix. 7. Gabapentin. 8. Acetaminophen. 9. Atorvastatin. 10. Doxycycline. PHYSICAL EXAMINATION: General: He is asleep, surrounded by his daughters. Vital Signs: Blood pressure 123/74, heart rate of 96, respiratory rate of 22, O2 saturation of 96 on 3 liters. LABORATORY DATA: Hemoglobin 8.6, WBC 22,200, platelet count 363,000. Sodium 132, potassium 4, chloride CO2 of 21.8, BUN 42, creatinine 1.7, glucose 457, magnesium 1.5, alkaline phosphatase 334, albumin 3.6. ASSESSMENT: 1. Non-oliguric acute kidney injury secondary to sepsis leading to acute kidney injury, which started to improve with volume resuscitation and providing hemodynamic stability. 2. Hypertension. 3. Type 2 diabetes. 4. Sepsis. 5. Anemia of chronic inflammation. PLAN: The patient's kidney function has been improving on a daily basis. We will continue to monitor urine output, kidney function, electrolytes on a daily basis. Continue to monitor his urine output as well. DT: 14:51:41 TT: 16:02:00 Ref: [id number] - TID: [id number] [facility]
--- NOTE | 2024-05-20 17:45 | PC.NURSE ---
patient currently receiving bolus of 17 u via infusion pump with basal rate of 2.65 units/hour
--- NOTE | 2024-05-20 19:25 | PC.NURSE ---
Dr Curran notified of blood sugar of 457. Followed protocol with 8 units per sliding scale. Additional 20 units ordered by and administered. Stat draw order placed per protocol. Care endorsed to Estefany BRITO at bedside during insulin administration.
[2024-05-20 20:04] LABS: Glucose 476 mg/dL (74-106)
--- NOTE | 2024-05-20 21:53 | PC.NURSE ---
Notify of pt's blood sugar 391. Sliding scale is not due until 0000H. MD [place] ordered 1 time dose of 20u Lispro.
[2024-05-20] MEDS: HEPARIN SOD INJ 5000 UNIT/ML VIAL SC (22:00)
[2024-05-20] MEDS: DOCUSATE SOD 100 MG CAPSULE PO (22:11)
[2024-05-20] MEDS: DOXYCYCLINE 100 MG TABLET PO (22:11)
[2024-05-20] MEDS: ASCORBIC ACID 250 MG TABLET 500 MG PO (22:12)
[2024-05-20] MEDS: ATORVASTATIN CALCIUM 10 MG TABLET PO (22:12)
[2024-05-21] VITALS (11 sets, daily range): BP systolic 111–152; BP diastolic 59–77; PULSE 77–91; RESP 16–18; TEMP 36.2–36.6; O2SAT 96–100
[2024-05-21] MEDS: INSULIN LISPRO (AdmeLOG) 1 UNIT/0.01 ML UNIT SC (00:23)
[2024-05-21] MEDS: traMADol HCL 50 MG TABLET PO ×2 (04:33→21:29)
[2024-05-21] MEDS: METOCLOPRAMIDE INJ 5 MG/ML VIAL 2 ML IVP ×3 (05:44→21:25)
[2024-05-21] MEDS: ACETAMINOPHEN IVPB 1,000 MG/100 ML VIAL 250 MG IV ×2 (05:44→12:43)
[2024-05-21] MEDS: NIFEdipine 10 MG CAPSULE PO ×2 (05:45→15:01)
[2024-05-21] MEDS: GABAPENTIN 100 MG CAPSULE PO ×3 (05:45→21:25)
[2024-05-21 06:12] LABS: Basophils # (Auto) 0.1 Thou/mm3 (0.0-0.2); Basophils % (Auto) 0 % (0-2.5); Eosinophils % (Auto) 0 % (0-10); Hematocrit 22.2 % (41.0-53.0); Immature Granulocytes % (Auto) 9 % (0-0); Immature Granulocytes Auto 2.44 Thou/mm3 (0.00-0.00); Lymphocytes # (Auto) 2.3 Thou/mm3 (1.0-4.8); Lymphocytes % (Auto) 8 % (10-50); Mean Corpuscular HGB Conc 33.3 g/dl (31.0-37.0); Mean Corpuscular Hemoglobin 23.3 pg (25.0-35.0); Mean Corpuscular Volume 70 fL (80-100); Monocytes # (Auto) 1.6 Thou/mm3 (0.0-0.8); Monocytes % (Auto) 6 % (0-12); Neutrophils # (Auto) 21.6 Thou/mm3 (1.8-7.7); Neutrophils % (Auto) 77 % (37-80); Nucleated Red Blood Cell % 0 /100 WBC (0); Platelet Count 305 Thou/mm3 (140-440); RDW Standard Deviation 36.9 fL (35.1-43.9); Red Blood Count 3.18 Miln/mm3 (4.50-5.90)
[2024-05-21 06:15] LABS: Hemoglobin 7.4 g/dL (13.5-16.0)
[2024-05-21] MEDS: PIPER/TAZO INJ 3.375 GM in SODIUM CHLORIDE 0.9% (P) 50 ML IV (06:23)
[2024-05-21 06:59] LABS: Alanine Aminotransferase 11 U/L (10-49); Albumin, Serum 3.6 gm/dL (3.5-5.0); Albumin/Globulin Ratio 0.9 (1.2-2.2); Alkaline Phosphatase 354 U/L (46-116); Anion Gap 9 (7-16); Aspartate Amino Transferase 21 U/L (0-34); BUN/Creatinine Ratio 31 Ratio (12-20); Bilirubin,Total 0.6 mg/dL (0.3-1.2); Blood Urea Nitrogen 46 mg/dL (9-23); Calcium 8.8 mg/dL (8.3-10.6); Calcium (Corrected) 9.1 mg/dL (8.5-10.1); Carbon Dioxide 22.9 mMol/L (20.0-31.0); Chloride 101 mMol/L (98-107); Creatinine (Component) 1.5 mg/dL (0.6-1.3); Globulin 3.8 gm/dL (2.3-3.5); Glucose 154 mg/dL (74-106); Magnesium 1.8 mg/dL (1.6-2.6); Osmolality,Calculated 281 (275-295); Potassium 3.8 mMol/L (3.4-5.1); Sodium 133 mMol/L (136-145); Total Protein 7.4 gm/dL (5.7-8.2); eGFR 53 See Note
--- NOTE | 2024-05-21 07:25 | PC.NURSE ---
Recent IV Tylenol given and was ready for reassessment but system would not let me. Pharmacist Alexandrea called and she said it has already been discontinued and it is fine.
[2024-05-21] MEDS: ASCORBIC ACID 250 MG TABLET 500 MG PO ×2 (08:53→21:25)
[2024-05-21] MEDS: DOCUSATE SOD 100 MG CAPSULE PO ×2 (08:54→21:25)
[2024-05-21] MEDS: DOXYCYCLINE 100 MG TABLET PO (08:55)
[2024-05-21] MEDS: METHADONE SOLUTION 1 MG/1 ML 65 MG PO (08:55)
[2024-05-21] MEDS: HEPARIN SOD INJ 5000 UNIT/ML VIAL SC (08:55)
[2024-05-21] MEDS: PANTOPRAZOLE INJ 40 MG VIAL IV (08:58)
[2024-05-21] MEDS: ZINC SULFATE 220 MG CAPSULE PO (09:00)
--- NOTE | 2024-05-21 09:26 | PC.SS ---
Follow up note: Pt had surgery yesterday. General surgery recommendations pending. Consulting cardio. Pt is on IV antibiotic. Pt is open to SNF for short term placement pending PT recommendations.
[2024-05-21] MEDS: MORPHINE SULF INJ 10 MG/ML VIAL 2 MG IVP ×2 (11:18→18:37)
--- NOTE | 2024-05-21 11:45 | PD.SURPROG ---
Documentation for date of: 05/21/24 Subjective Subjective Narrative: Patient is seen and examined. He is complaining of pain at the amputation site, pain controlled with medication Exam Vital Signs Temp Pulse Resp BP Pulse Ox O2 Del Method O2 Flow Rate 97.3 F 87 18 131/65 H 97 Nasal Cannula 1 05/21/24 07:50 05/21/24 08:00 05/21/24 07:50 05/21/24 07:50 05/21/24 07:50 05/21/24 07:50 05/21/24 07:50 Constitutional Constitutional: no acute distress Routine Extremities Exam Comments: Right lower extremity amputation site with dressings clean, dry and intact Assessment & Plan Assessment Additional comments: Postop day #1 status post guillotine amputation of right distal leg Plan Continue IV antibiotics Procedures Procedures Guillotine amputation of right leg at the ankle
[2024-05-21 12:33] LABS: Anisocytosis 1+; Band Neutrophils (Manual) 2 % (0-6); Lymphocytes (Manual) 13 % (20-44); Monocytes (Manual) 10 % (2-9); Myelocytes (Manual) 4 % (0-0); Neutrophils (Manual) 71 % (50-70)
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
--- NOTE | 2024-05-21 15:08 | ESPR_ITS ---
Documentation for date of: 05/21/24 Subjective Subjective Interval history: Pt examined at bedside today. Overnight events included patient's BG rising to the 400s, and was eventually fixed with short acting insulin. Reports he has slept good and is eating fine, and is wondering when he is going to get surgery. He is continuing to use his insulin pump. No complaints at this time Exam Vital Signs Temp Pulse Resp BP Pulse Ox O2 Del Method O2 Flow Rate 97.9 F 87 18 145/75 H 97 Nasal Cannula 1 05/21/24 12:00 05/21/24 12:00 05/21/24 12:00 05/21/24 12:00 05/21/24 12:00 05/21/24 12:00 05/21/24 12:00 Narrative Exam General: AAOx3, NAD, HEENT: Moist mucous membranes, conjunctiva clear, EOMI, PERRLA, Cardiovascular: S1, S2, radial pulses +2 bilat, RRR Pulmonary: CTAB bilat no cough, no wheezing GI: No tenderness to light or deep palpitation, no guarding, rigidity, rebound tenderness or distension Extremities: Various skin changes in the lower extremities, more so right lower extremity, with various stages of healing, R foot s/p guillotine amputation with bandage, left dorsalis pedis pulse +2 Neuro: AAOx3, no focal motor or sensory deficits in the UE or LE bilat Psych: Good judgement, thought and behavior Objective Labs 05/22/24 05:20 05/22/24 05:20 Labs: Laboratory Results - last 24 hr 05/20/24 05/21/24 19:37 05:26 WBC 28.0 H D RBC 3.18 L Hgb 7.4 L Hct 22.2 L MCV 70 L MCH 23.3 L MCHC 33.3 RDW Std Deviation 36.9 Plt Count 305 D Neut % (Auto) 77 Lymph % (Auto) [address] [place] % (Auto) 6 Eos % (Auto) 0 Baso % (Auto) 0 Neut # (Auto) 21.6 H Lymph # (Auto) 2.3 [place] # (Auto) 1.6 H Eos # (Auto) 0.0 Baso # (Auto) 0.1 Immature Gran # (Auto) 2.44 H Absolute Nucleated RBC 0.10 H Immature Gran % 9 H Neutrophils % (Manual) 71 H Monocytes % (Manual) 10 H Myelocytes % 4 H Nucleated RBC % 0 Band Neutrophils 2 Lymphocytes (Manual) 13 L Anisocytosis 1+ Sodium 133 L Potassium 3.8 Chloride 101 Carbon Dioxide 22.9 Anion Gap 9 BUN 46 H Creatinine 1.5 H Estim Creat Clear Calc 68.0 eGFR 53 L BUN/Creatinine Ratio 31 H Glucose 476 H* 154 H D Calculated Osmolality 281 Calcium 8.8 Corrected Calcium 9.1 Magnesium 1.8 Total Bilirubin 0.6 AST 21 ALT 11 Alkaline Phosphatase 354 H D Total Protein 7.4 Albumin 3.6 Globulin 3.8 H Albumin/Globulin Ratio 0.9 L Quality Measures Quality Measures none Assessment & Plan Assessment Current Active Medications: Generic Name Dose Route Start Last Admin Trade Name Freq PRN Reason Stop Dose Admin Acetaminophen 650 mg 05/17/24 15:35 05/19/24 01:58 Acetaminophen 325 Mg Tablet PO 06/16/24 15:34 650 mg Q6H PRN Administration Pain (1-3) and Fever >101.5 Ascorbic Acid 500 mg 05/20/24 21:00 05/21/24 08:53 Ascorbic Acid 250 Mg Tablet PO 06/19/24 20:59 500 mg BID TRISTON Administration Atorvastatin Calcium 10 mg 05/17/24 21:00 05/20/24 22:12 Atorvastatin Calcium 10 Mg Tablet PO 06/16/24 20:59 10 mg HS TRISTON Administration Patients Own Insulin 0 ea 05/17/24 16:33 05/21/24 10:22 Pump-Medtronic SC 06/16/24 16:29 Not Given Minimed DAILY [facility] Dextrose 25 ml 05/19/24 08:36 Dextrose 50%-Water Inj 50 Ml Syringe IV 06/18/24 08:35 Q15MIN PRN BG 50-70 responsive npo pt Dextrose 50 ml 05/19/24 08:36 Dextrose 50%-Water Inj 50 Ml Syringe IV 06/18/24 08:35 Q15MIN PRN BG <50 OR BG <70 & pt unresponsive Docusate Sodium 100 mg 05/20/24 21:00 05/21/24 08:54 Docusate Sod 100 Mg Capsule PO 06/19/24 20:59 100 mg BID [facility]ST[facility] Administration Protocol Gabapentin 100 mg 05/17/24 22:00 05/21/24 05:45 Gabapentin 100 Mg Capsule PO 06/16/24 21:59 100 mg TID [facility] Administration Glucagon 1 mg 05/17/24 15:35 Glucagon Inj 1 Mg Vial IM Q15MIN PRN BG <70, and no IV access Heparin Sodium (Porcine) 5,000 unit 05/18/24 21:00 05/21/24 08:55 Heparin Sod Inj 5000 Unit/Ml Vial SC 05/31/24 15:44 5,000 unit Q12HR [facility] Administration Ceftriaxone Sodium 2 gm/ 50 mls @ 100 mls/hr 05/22/24 09:00 Sodium Chloride IV 05/29/24 08:59 QDAY [facility] Insulin Human Lispro 0 unit 05/20/24 15:52 05/21/24 12:59 Insulin Lispro (Admelog) 1 Unit/0.01 Ml Unit SC 06/18/24 17:59 Not Given Q6HR [facility] Protocol Methadone HCl 65 mg 05/19/24 09:00 05/21/24 08:55 Methadone Solution 1 Mg/1 Ml PO 05/24/24 08:59 65 mg QDAY [facility] Administration Protocol Metoclopramide HCl 5 mg 05/19/24 14:00 05/21/24 05:44 Metoclopramide Inj 5 Mg/Ml Vial 2 Ml IVP 06/18/24 13:59 5 mg Q8HR [facility] Administration Protocol Morphine Sulfate 2 mg 05/17/24 15:35 05/21/24 11:18 Morphine Sulf Inj 10 Mg/Ml Vial IVP 05/22/24 15:34 2 mg Q6HR PRN Administration PAIN SCALE 7-10 (Severe Nifedipine 10 mg 05/19/24 08:30 05/21/24 05:45 Nifedipine 10 Mg Capsule PO 06/18/24 08:29 10 mg TID [facility] Administration Ondansetron HCl 4 mg 05/18/24 01:49 05/19/24 00:01 Ondansetron Inj 2 Mg/Ml Inj 2 Ml IV 06/17/24 01:48 4 mg Q6HR PRN Administration NAUSEA OR VOMITING Protocol Pantoprazole Sodium 40 mg 05/18/24 14:00 05/21/24 08:58 Pantoprazole Inj 40 Mg Vial IV 06/17/24 13:59 40 mg QDAY [facility] Administration Polyethylene Glycol 17 gm 05/18/24 13:55 05/21/24 08:59 Polyethylene Glycol 17 Gm Packet PO 06/17/24 13:54 Not Given QDAY [facility] Sennosides 1 tab 05/18/24 14:00 05/21/24 09:00 Senna Tablet PO 06/17/24 13:59 Not Given QDAY [facility] Protocol Tramadol HCl 50 mg 05/17/24 15:35 05/21/24 04:33 Tramadol Hcl 50 Mg Tablet PO 05/22/24 15:34 50 mg Q6HR PRN Administration PAIN SCALE 4-6 (Moderate Zinc Sulfate 220 mg 05/21/24 09:00 05/21/24 09:00 Zinc Sulfate 220 Mg Capsule PO 06/20/24 08:59 220 mg QDAY [facility] Administration Plan Assessment: Mr. Muhammad is a 58-year-old male with past medical history of diabetes mellitus, hypertension, hyperlipidemia, chronic pain and IV heroin drug (currently on methadone) use who presented to [facility], [place] with a chief complaint of right leg swelling and tenderness. Patient admitted for osteomyelitis right foot, possible surgical intervention with below knee amputation. 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 Infective endocarditis Echocardiogram shows possible vegetation on valves, recommend for CAT follow-up Patient has history of drug use but has not used in a while per patient Blood cultures have been negative so far Echo: EF of 40, systolic dysfunction and wall motion abnormalities Plan: ?*Repeat blood cultures ?ID on consult, appreciate recs ?Continue with Rocephin ?Cardiology on consult, appreciate recs ?*N.p.o. at midnight for CAT tomorrow ?Coreg 3.125 ?Lisinopril 2.5 ?Stopping nifedipine #Acute kidney injury, improving #PADDY on CKD Patient presented with BUN 59, creatinine 3.8 and GFR 17, baseline unknown Creatinine 1.5 today, compared to 1.7 yesterday Patient likely will have some form of CKD moving forward, we will have to establish baseline in the coming days Plan: -Nephrology consulted in ED, appreciate recommendations -Avoid nephrotoxic agents -Renally dose medications ?As above #Diabetes mellitus, insulin-dependent A1c of 8.3 Patient's blood sugars have not been controlled, have been in the 200s, will adjust management as patient currently uses insulin pump Will adjust insulin units throughout admission Insulin pump was removed initially because sugars weren't controlled and then was put on basal and SSI, as per family, pt was removing pump by himself w/o notifying nurses and providers Sugars continued to elevate overnight, sugars reaching 400s Family wants to use insulin pump and said they will put his insulin pump by themselves if his blood sugar continues to be above 300 We explained to them that the plan is to control his blood sugar and we want to know how to control his blood sugar in predictable fashion and putting the insulin pump without notifiying the provider can put patient at risk for hypoglycemia and further complications Family will continue to use insulin pump, we gave 40 units lispro yesterday since patient's sugar was up in the 400s Informed risk and benefits with patient and family in regards to the using the insulin pump instead of us managing insulin primarily, however they insist on using insulin pump in the hospital and us giving some bolus. We highly recommended patient to follow-up with sales and service consultant outpatient as patient has PCP managing insulin pump Plan: -SSI sensitive ?Patient to continue using insulin pump -Glucose checks q6h -Carb consistent low diet #Hypertension #Hyperlipidemia -Blood pressure soft, patient on metoprolol tartrate 50 twice daily, lisinopril 40 daily and hydrochlorothiazide 25 daily at home will hold. -Hold lisinopril and hydrochlorothiazide due to PADDY -Continue home dose atorvastatin 10 at bedtime -Continue nifedipine 10 mg TID #Chronic pain #History of IV heroin use #Methadone dependence -Resumed gabapentin 100 3 times daily ?Resume home methadone 65 mg ?Limits narcotics considering patient has methadone #Electrolyte imbalances #Hypomagnesemia -Replete as needed DVT prophylaxis: Holding heparin as patient is possibly going to surgery tomorrow GI prophylaxis: Not indicated Diet: Carb consistent low, renal, cardiac Lines: Peripheral IV Code status: Full code Case discussed with my attending physician, Dr. Mack Diamond PGY-1 Attending Provider Attestation/Addendum I have discussed and was present for the essential components of the history, physical examination, diagnosis, and treatment plan with the resident. I agree with the patient's care as documented by the resident and amended herein by me. Manuel Giron DO. Although this document has been carefully reviewed, there may still be some phonetic and other typographical errors. These errors are purely grammatical due to imperfections in the software program and should not be construed in any way to compromise the substance of the patient's medical care during this visit.
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
--- NOTE | 2024-05-21 19:21 | PD.RESCONSUL ---
HPI Data of Consult Requesting Physician: Rogerio Giron DO Admitting Provider: Sabrina Velasco MD Attending Provider: Rogerio Giron DO Primary Care Provider: Jose Alberto lOiveira PA-C Consult Narrative Reason for consult: Possible endocarditis, osteomyelitis now s/p amputation History of present illness: Patient is a 58 year old male with history of type 2 diabetes mellitus, hypertension, hyperlipidemia, chronic pain, IV substance use (hx heroin use, currently on methadone), who presented to the ED with concerns of right legt swelling and tenderness, which he reported was result of a chronic wound. Patient as started on IV fluids and antibiotics, orthopedic and general surgery teams were consulted for possible amputation. On 05/17, lower right extremity revealed pathologic fractures involving cuboid and anterior calcaneus with extensive osteomyelitis. 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 Incidentally, echo completed on 05/19 revealed a suspicious echogenic mass on tricuspid valve, possibly reflecting a vegetation or mass. Infectious disease team was consulted for possible vegetation and osteomyelitis, now status post amputation at level of ankle. Patient is examined bedside, has had guillotine amputation of right leg and reports feeling well today. Labs revealed, at time of this writing preliminary blood cultures on 05/17 remain negative with blood cultures from 05/21 pending. Cardiology team has been consulted by primary team, CAT planned for 05/22. 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 Patient does not have any animals at home. Denies current tobacco or alcohol use but endorse ~10 years of tobacco and alcohol use. Endorses history of IV heroin in past Vaccination Hx: Tetanus shot 2-3 years ago, no recent flu, covid or pnemococcal vaccines. cc:: cc: Rogerio Giron DO Exam Vital Signs Temp Pulse Resp BP Pulse Ox O2 Del Method O2 Flow Rate 97.2 F 86 18 139/72 H 96 Nasal Cannula 1 05/21/24 16:00 05/21/24 16:00 05/21/24 16:00 05/21/24 16:00 05/21/24 16:00 05/21/24 16:00 05/21/24 16:00 Narrative Exam General: AOx3, cooperative, in no acute distress HEENT: Atraumatic/normocephalic, CECILIA, neck supple without masses Heart: RRR, S1 and S2 without clicks or murmurs Lungs: Clear on auscultation bilaterally, no difficulty breathing Abdomen: Soft, nontender. Bowel sounds present on all quadrants, no organomegaly Skin: Right ankle wrapped post procedure, Neuro: No focal neurological deficits noted Results Labs 05/21/24 05:26 05/21/24 05:26 Labs: Short CBC 05/21/24 Range/Units 05:26 WBC 28.0 H D (3.8-10.6) Thou/mm3 Hgb 7.4 L (13.5-16.0) g/dL Hct 22.2 L (41.0-53.0) % Plt Count 305 D (140-440) Thou/mm3 BMP 05/20/24 05/21/24 19:37 05:26 Sodium 133 L Potassium 3.8 Chloride 101 Carbon Dioxide 22.9 BUN 46 H Creatinine 1.5 H Glucose 476 H* 154 H D Calcium 8.8 Liver Function 05/21/24 Range/Units 05:26 Total Bilirubin 0.6 (0.3-1.2) mg/dL AST 21 (0-34) U/L ALT 11 (10-49) U/L Alkaline Phosphatase 354 H D (46-116) U/L Albumin 3.6 (3.5-5.0) gm/dL Quality Measures Quality Measures VTE prophylaxis (Heparin) Medications Home Medications and Allergies Home Medications ?Medication ?Instructions ?Recorded ?Confirmed ?Type insulin glargine 100 unit/mL 60 unit subcut QAM #0 vials 08/13/14 History subcutaneous solution (Lantus U-100 Insulin) insulin lispro 100 unit/mL subcut AC #0 vials 08/13/14 History subcutaneous solution (Humalog U-100 Insulin) aspirin 81 mg tablet 81 mg PO 1XD 05/17/24 05/18/24 History atorvastatin 10 mg tablet (Lipitor) 10 mg 1XD 05/17/24 05/18/24 History dulaglutide 1.5 mg/0.5 mL 1.5 mg subcut 05/17/24 History subcutaneous pen injector (Trulicity) gabapentin 100 mg capsule 100 mg PO TID 05/17/24 05/18/24 History hydrochlorothiazide 25 mg tablet 25 mg PO QDAY 05/17/24 05/18/24 History lisinopril 40 mg tablet 40 mg 1XD 05/17/24 05/18/24 History metformin 1,000 mg tablet 1,000 mg 2XD 05/17/24 05/18/24 History methadone 10 mg/mL oral syringe 65 mg PO QDAY 05/17/24 05/18/24 History (FOR ORAL USE ONLY) metoprolol tartrate 50 mg tablet 50 mg 2XD 05/17/24 05/18/24 History Allergies Allergy/AdvReac Type Severity Reaction Status Date / Time No Known Allergies Allergy Verified 05/20/24 12:39 Visit Medications Acetaminophen (Acetaminophen 325 Mg Tablet) 650 mg PO Q6H PRN PRN Reason: Pain (1-3) and Fever >101.5 Stop: 06/16/24 15:34 Last Admin: 05/19/24 01:58 Dose: 650 mg Ascorbic Acid (Ascorbic Acid 250 Mg Tablet) 500 mg PO BID [facility] Stop: 06/19/24 20:59 Last Admin: 05/21/24 08:53 Dose: 500 mg Atorvastatin Calcium (Atorvastatin Calcium 10 Mg Tablet) 10 mg PO HS [facility] Stop: 06/16/24 20:59 Last Admin: 05/20/24 22:12 Dose: 10 mg Carvedilol (Carvedilol 3.125 Mg Tablet) 3.125 mg PO BIDWM [facility] Stop: 06/21/24 08:59 Patients Own Insulin Pump-[employer]tr[employer] Minimed 0 ea SC DAILY [facility] Stop: 06/16/24 16:29 Last Admin: 05/21/24 10:22 Dose: Not Given Dextrose (Dextrose 50%-Water Inj 50 Ml Syringe) 25 ml IV Q15MIN PRN PRN Reason: BG 50-70 responsive npo pt Stop: 06/18/24 08:35 Dextrose (Dextrose 50%-Water Inj 50 Ml Syringe) 50 ml IV Q15MIN PRN PRN Reason: BG <50 OR BG <70 & pt unresponsive Stop: 06/18/24 08:35 Docusate Sodium (Docusate Sod 100 Mg Capsule) 100 mg PO BID [facility]; Protocol Stop: 06/19/24 20:59 Last Admin: 05/21/24 08:54 Dose: 100 mg Gabapentin (Gabapentin 100 Mg Capsule) 100 mg PO TID [facility] Stop: 06/16/24 21:59 Last Admin: 05/21/24 15:10 Dose: 100 mg Glucagon (Glucagon Inj 1 Mg Vial) 1 mg IM Q15MIN PRN PRN Reason: BG <70, and no IV access Heparin Sodium (Porcine) (Heparin Sod Inj 5000 Unit/Ml Vial) 5,000 unit SC Q12HR [facility] Stop: 05/31/24 15:44 Last Admin: 05/21/24 08:55 Dose: 5,000 unit Ceftriaxone Sodium 2 gm/ (Sodium Chloride) 50 mls @ 100 mls/hr IV QDAY [facility] Stop: 05/29/24 08:59 Insulin Human Lispro (Insulin Lispro (Admelog) 1 Unit/0.01 Ml Unit) 0 unit SC Q6HR [facility]; Protocol Stop: 06/18/24 17:59 Last Admin: 05/21/24 18:38 Dose: Not Given Lisinopril (Lisinopril 2.5 Mg Tablet) 2.5 mg PO QDAY [facility] Stop: 06/21/24 08:59 Methadone HCl (Methadone Solution 1 Mg/1 Ml) 65 mg PO QDAY [facility]; Protocol Stop: 05/24/24 08:59 Last Admin: 05/21/24 08:55 Dose: 65 mg Metoclopramide HCl (Metoclopramide Inj 5 Mg/Ml Vial 2 Ml) 5 mg IVP Q8HR [facility]; Protocol Stop: 06/18/24 13:59 Last Admin: 05/21/24 15:09 Dose: 5 mg Morphine Sulfate (Morphine Sulf Inj 10 Mg/Ml Vial) 2 mg IVP Q6HR PRN PRN Reason: PAIN SCALE 7-10 (Severe Stop: 05/22/24 15:34 Last Admin: 05/21/24 18:37 Dose: 2 mg Ondansetron HCl (Ondansetron Inj 2 Mg/Ml Inj 2 Ml) 4 mg IV Q6HR PRN; Protocol PRN Reason: NAUSEA OR VOMITING Stop: 06/17/24 01:48 Last Admin: 05/19/24 00:01 Dose: 4 mg Pantoprazole Sodium (Pantoprazole Inj 40 Mg Vial) 40 mg IV QDAY [facility] Stop: 06/17/24 13:59 Last Admin: 05/21/24 08:58 Dose: 40 mg Polyethylene Glycol (Polyethylene Glycol 17 Gm Packet) 17 gm PO QDAY [facility] Stop: 06/17/24 13:54 Last Admin: 05/21/24 08:59 Dose: Not Given Sennosides (Senna Tablet) 1 tab PO QDAY [facility]; Protocol Stop: 06/17/24 13:59 Last Admin: 05/21/24 09:00 Dose: Not Given Tramadol HCl (Tramadol Hcl 50 Mg Tablet) 50 mg PO Q6HR PRN PRN Reason: PAIN SCALE 4-6 (Moderate Stop: 05/22/24 15:34 Last Admin: 05/21/24 04:33 Dose: 50 mg Zinc Sulfate (Zinc Sulfate 220 Mg Capsule) 220 mg PO QDAY [facility] Stop: 06/20/24 08:59 Last Admin: 05/21/24 09:00 Dose: 220 mg Discontinued Medications Dextrose (Dextrose 50%-Water Inj 50 Ml Syringe) 25 ml IV Q15MIN PRN PRN Reason: BG 50-70 responsive npo pt Stop: 06/16/24 15:34 Dextrose (Dextrose 50%-Water Inj 50 Ml Syringe) 50 ml IV Q15MIN PRN PRN Reason: BG <50 OR BG <70 & pt unresponsive Stop: 06/16/24 15:34 Doxycycline Hyclate (Doxycycline 100 Mg Tablet) 100 mg PO BID [facility] Stop: 05/25/24 11:59 Last Admin: 05/21/24 08:55 Dose: 100 mg Fentanyl Citrate (Fentanyl Cit Inj 50 Mcg/Ml Amp 2ml) 25 mcg IV Q5M PRN PRN Reason: PAIN SCALE 1-3 (mild Stop: 05/20/24 14:35 Heparin Sodium (Porcine) (Heparin Sod Inj 5000 Unit/Ml Vial) 5,000 unit SC Q12H [facility] Stop: 05/31/24 15:44 Last Admin: 05/18/24 05:26 Dose: 5,000 unit Hydralazine HCl (Hydralazine Hcl 10 Mg Tablet) 10 mg PO X1 ONE Stop: 05/19/24 04:12 Last Admin: 05/19/24 04:21 Dose: 10 mg Hydromorphone HCl (Hydromorphone Inj 2 Mg/Ml Vial) 0.5 mg IVP X1 ONE Stop: 05/20/24 14:43 Last Admin: 05/20/24 15:06 Dose: 0.5 mg Sodium Chloride (Ns) 1,000 mls @ 999 mls/hr IV .Q1H1M ONE Stop: 05/17/24 13:54 Last Admin: 05/17/24 14:37 Dose: Not Given Piperacillin/Tazobactam/Dextrose (Zosyn) 3.375 gm in 50 mls @ 100 mls/hr IV X1 ONE Stop: 05/17/24 13:23 Last Infusion: 05/17/24 14:38 Dose: Infused Vancomycin HCl 1,000 mg/ (Sodium Chloride) 250 mls @ 150 mls/hr IV X1 ONE Stop: 05/17/24 14:33 Last Admin: 05/17/24 14:26 Dose: 150 mls/hr Lactated Ringer's (Lactated Ringers) 1,000 mls @ 999 mls/hr IV .Q1H1M ONE Stop: 05/17/24 14:22 Last Admin: 05/17/24 14:32 Dose: 999 mls/hr Sodium Chloride (Ns) 1,000 mls @ 75 mls/hr IV .[id number] [facility] Stop: 05/18/24 05:04 Last Admin: 05/17/24 16:45 Dose: 75 mls/hr Piperacillin Sod/Tazobactam (Sod 3.375 gm/ Sodium Chloride) 50 mls @ 12.5 mls/hr IV Q8HR [facility] Stop: 05/24/24 21:59 Last Admin: 05/21/24 14:53 Dose: Not Given Magnesium Sulfate (Magnesium Sulfate Ivpb) 4 gm in 50 mls @ 12.5 mls/hr IV X1 ONE Stop: 05/18/24 00:42 Last Admin: 05/18/24 00:41 Dose: 12.5 mls/hr Vancomycin/Sodium Chloride (Vancomycin/Ns 1 Gm Ivpb) 200 mls @ 120 mls/hr IV QDAY@1000 [facility] Stop: 05/26/24 09:59 Vancomycin/Sodium Chloride (Vancomycin/Ns 1 Gm Ivpb) 200 mls @ 120 mls/hr IV QDAY@1400 [facility] Stop: 05/25/24 13:59 Potassium Chloride (Kcl Ivpb) 10 meq in 100 mls @ 100 mls/hr IV Q1H [facility] Stop: 05/19/24 12:44 Last Admin: 05/19/24 14:18 Dose: 100 mls/hr Magnesium Sulfate (Magnesium Sulfate Ivpb) 2 gm in 50 mls @ 25 mls/hr IV X1 ONE Stop: 05/20/24 10:02 Last Admin: 05/20/24 10:09 Dose: 25 mls/hr Acetaminophen (Ofirmev Inj) 1,000 mg in 100 mls @ 250 mls/hr IV Q6HR [facility] Stop: 05/21/24 06:23 Last Admin: 05/21/24 07:49 Dose: Not Given Acetaminophen (Ofirmev Inj) 1,000 mg in 100 mls @ 250 mls/hr IV X1 ONE Stop: 05/21/24 12:23 Last Admin: 05/21/24 12:43 Dose: 250 mls/hr Clindamycin Phosphate 900 mg/ (IV Miscellaneous Supplies) 50 mls @ 50 mls/hr IV Q8HR [facility] Stop: 05/28/24 13:59 Last Admin: 05/21/24 14:53 Dose: Not Given Insulin Glargine (Insulin Glargine (Lantus) 5 Unit/0.05 Ml (Per 5 Units)) 5 unit SC QDAY [facility] Stop: 06/18/24 08:59 Last Admin: 05/19/24 10:20 Dose: Not Given Insulin Glargine (Insulin Glargine (Lantus) 5 Unit/0.05 Ml (Per 5 Units)) 13 unit SC QDAY [facility] Stop: 06/19/24 08:59 Insulin Glargine (Insulin Glargine (Lantus) 5 Unit/0.05 Ml (Per 5 Units)) 28 unit SC QDAY [facility] Stop: 06/18/24 20:59 Last Admin: 05/19/24 21:15 Dose: 28 unit Insulin Glargine (Insulin Glargine (Lantus) 5 Unit/0.05 Ml (Per 5 Units)) 28 unit SC HS [facility] Stop: 06/18/24 20:59 Insulin Human Lispro (Insulin Lispro (Admelog) 1 Unit/0.01 Ml Unit) 0 unit SC ACHS [facility]; Protocol Stop: 06/18/24 11:29 Last Admin: 05/19/24 17:56 Dose: Not Given Insulin Human Lispro (Insulin Lispro (Admelog) 1 Unit/0.01 Ml Unit) 0 unit SC Q6HR [facility]; Protocol Stop: 06/18/24 17:59 Last Admin: 05/20/24 15:46 Dose: Not Given Insulin Human Lispro (Insulin Lispro (Admelog) 1 Unit/0.01 Ml Unit) 20 unit SC X1 ONE Stop: 05/20/24 08:07 Last Admin: 05/20/24 08:28 Dose: 20 unit Insulin Human Lispro (Insulin Lispro (Admelog) 1 Unit/0.01 Ml Unit) 10 unit SC X1 ONE Stop: 05/20/24 10:28 Last Admin: 05/20/24 11:08 Dose: 10 unit Insulin Human Lispro (Insulin Lispro (Admelog) 1 Unit/0.01 Ml Unit) 20 unit SC X1 ONE Stop: 05/20/24 19:16 Last Admin: 05/20/24 19:25 Dose: 20 unit Insulin Human Lispro (Insulin Lispro (Admelog) 1 Unit/0.01 Ml Unit) 20 unit SC X1 ONE Stop: 05/20/24 21:57 Last Admin: 05/20/24 22:08 Dose: 20 unit Insulin Human Regular (Insulin Hum Regular 1 Unit/0.01 Ml (Per Unit)) 5 unit IV X1 ONE Stop: 05/19/24 23:38 Insulin Human Regular (Insulin Hum Regular 1 Unit/0.01 Ml (Per Unit)) 10 unit IV X1 ONE Stop: 05/20/24 07:21 Last Admin: 05/20/24 07:36 Dose: Not Given Magnesium Oxide (Magnesium Oxide 400 Mg Tablet) 400 mg PO X1 ONE Stop: 05/17/24 21:36 Last Admin: 05/17/24 21:39 Dose: 400 mg Metoclopramide HCl (Metoclopramide Inj 5 Mg/Ml Vial 2 Ml) 5 mg IVP X1 ONE; Protocol Stop: 05/18/24 05:50 Last Admin: 05/18/24 06:26 Dose: 5 mg Metoclopramide HCl (Metoclopramide Inj 5 Mg/Ml Vial 2 Ml) 5 mg IVP X1 ONE; Protocol Stop: 05/19/24 03:49 Last Admin: 05/19/24 03:55 Dose: 5 mg Morphine Sulfate (Morphine Sulf Inj 10 Mg/Ml Vial) 4 mg IVP X1 ONE Stop: 05/17/24 14:19 Last Admin: 05/17/24 14:27 Dose: 4 mg Morphine Sulfate (Morphine Sulf Inj 10 Mg/Ml Vial) 3 mg IV Q5M PRN PRN Reason: PAIN SCALE 4-6 (Moderate Stop: 05/20/24 14:35 Nifedipine (Nifedipine 10 Mg Capsule) 10 mg PO TID [facility] Stop: 06/18/24 08:29 Last Admin: 05/21/24 15:01 Dose: 10 mg Non-Formulary Medication (Methadone) 65 mg PO QDAY [facility] Stop: 06/18/24 08:59 Ondansetron HCl (Ondansetron Inj 2 Mg/Ml Inj 2 Ml) 4 mg IV X1 ONE; Protocol Stop: 05/17/24 14:20 Last Admin: 05/17/24 14:27 Dose: 4 mg Patient Own Medication (Patient's Own Med 1 Ea Ea) 1 ea PO X1 ONE Stop: 05/17/24 15:42 Last Admin: 05/17/24 18:28 Dose: Not Given Pharmacy Consult (Vancomycin Pharmacy To Dose 1 Each Each) 1 each IV QDAY [facility] Stop: 06/16/24 15:44 Last Admin: 05/17/24 17:03 Dose: Not Given Pharmacy Consult (Vancomycin Pharmacy To Dose 1 Each Each) 1 each IV QDAY PRN PRN Reason: CONSULT Stop: 06/17/24 11:38 Potassium Chloride (Potassium Chloride 20 Meq Tabcr) 40 meq PO X1 ONE Stop: 05/19/24 08:14 Last Admin: 05/19/24 10:20 Dose: Not Given Potassium Chloride (Potassium Chloride 20 Meq Tabcr) 40 meq PO X1 ONE Stop: 05/19/24 12:01 Last Admin: 05/19/24 12:47 Dose: 40 meq Assessment & Plan Plan Patient is a 58 year old male with history of type 2 diabetes mellitus, hypertension, hyperlipidemia, chronic pain, IV substance use (hx heroin use, currently on methadone), who presented to the ED with concerns of right legt swelling and tenderness, which he reported was result of a chronic wound. Patient as started on IV fluids and antibiotics, orthopedic and general surgery teams were consulted for possible amputation. On 05/17, lower right extremity revealed pathologic fractures involving cuboid and anterior calcaneus with extensive osteomyelitis. 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 Incidentally, echo completed on 05/19 revealed a suspicious echogenic mass on tricuspid valve, possibly reflecting a vegetation or mass. Infectious disease team was consulted for possible vegetation and osteomyelitis, now status post amputation at level of ankle. #Possible endorcarditis - TTE (05/19): suspicious echogenic mass on tricuspid valve, possibly reflecting a vegetation or mass - Blood cultures (05/17) negative - Blood cultures (05/21): Pending - CAT with cardiology pending 05/22 Plan - Advise IV 2gm rocephin daily while pending CAT and 05/21 blood cultures - Will stop Doxycycline and clindamycin today 04/21 - CAT pending with cardiology, planned 05/22 - If CAT is positive for endocarditis, consider rocephin 2gm IV qday for 6 weeks from first negative blood culture (would end 06/28/2024). 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 Pavel Benedict, DO PGY-3
[2024-05-21] MEDS: ATORVASTATIN CALCIUM 10 MG TABLET PO (21:25)
[2024-05-22] VITALS (13 sets, daily range): BP systolic 134–166; BP diastolic 67–87; PULSE 78–94; RESP 16–20; TEMP 36.1–36.4; O2SAT 96–99
[2024-05-22] MEDS: MORPHINE SULF INJ 10 MG/ML VIAL 2 MG IVP ×2 (00:36→08:31)
[2024-05-22] MEDS: traMADol HCL 50 MG TABLET PO ×2 (04:03→14:58)
[2024-05-22] MEDS: ACETAMINOPHEN 325 MG TABLET 650 MG PO (04:03)
[2024-05-22] MEDS: GABAPENTIN 100 MG CAPSULE PO ×3 (05:26→21:34)
[2024-05-22] MEDS: METOCLOPRAMIDE INJ 5 MG/ML VIAL 2 ML IVP ×3 (05:26→21:35)
[2024-05-22 06:05] LABS: Basophils # (Auto) 0.1 Thou/mm3 (0.0-0.2); Basophils % (Auto) 0 % (0-2.5); Eosinophils # (Auto) 0.2 Thou/mm3 (0.0-0.5); Eosinophils % (Auto) 1 % (0-10); Hematocrit 23.3 % (41.0-53.0); Immature Granulocytes % (Auto) 10 % (0-0); Immature Granulocytes Auto 2.38 Thou/mm3 (0.00-0.00); Lymphocytes # (Auto) 4.3 Thou/mm3 (1.0-4.8); Lymphocytes % (Auto) 19 % (10-50); Mean Corpuscular HGB Conc 32.2 g/dl (31.0-37.0); Mean Corpuscular Hemoglobin 22.9 pg (25.0-35.0); Mean Corpuscular Volume 71 fL (80-100); Monocytes # (Auto) 1.2 Thou/mm3 (0.0-0.8); Monocytes % (Auto) 5 % (0-12); Neutrophils # (Auto) 15.1 Thou/mm3 (1.8-7.7); Neutrophils % (Auto) 65 % (37-80); Nucleated Red Blood Cell # 0.06 Thou/mm3 (0.00-0.00); Nucleated Red Blood Cell % 0 /100 WBC (0); Platelet Count 341 Thou/mm3 (140-440); RDW Standard Deviation 37.2 fL (35.1-43.9); Red Blood Count 3.28 Miln/mm3 (4.50-5.90); White Blood Count 23.2 Thou/mm3 (3.8-10.6)
[2024-05-22 06:06] LABS: Hemoglobin 7.5 g/dL (13.5-16.0)
[2024-05-22 06:22] LABS: Alanine Aminotransferase 18 U/L (10-49); Albumin, Serum 3.5 gm/dL (3.5-5.0); Albumin/Globulin Ratio 0.9 (1.2-2.2); Alkaline Phosphatase 343 U/L (46-116); Anion Gap 9 (7-16); Aspartate Amino Transferase 36 U/L (0-34); BUN/Creatinine Ratio 34 Ratio (12-20); Bilirubin,Total 0.3 mg/dL (0.3-1.2); Blood Urea Nitrogen 48 mg/dL (9-23); Calcium 8.6 mg/dL (8.3-10.6); Carbon Dioxide 23.7 mMol/L (20.0-31.0); Chloride 105 mMol/L (98-107); Creatinine (Component) 1.4 mg/dL (0.6-1.3); Estimated Creatinine Clearance 72.8 mL/min (>60); Globulin 3.7 gm/dL (2.3-3.5); Glucose 97 mg/dL (74-106); Magnesium 1.7 mg/dL (1.6-2.6); Osmolality,Calculated 288 (275-295); Potassium 3.5 mMol/L (3.4-5.1); Sodium 138 mMol/L (136-145); Total Protein 7.2 gm/dL (5.7-8.2); eGFR 58 See Note
[2024-05-22 07:03] LABS: Hepatitis C Antibody Reactive (Non React)
[2024-05-22] MEDS: carVEDILOL 3.125 MG TABLET PO (09:03)
[2024-05-22] MEDS: ASCORBIC ACID 250 MG TABLET 500 MG PO ×2 (09:04→20:20)
[2024-05-22] MEDS: Lisinopril 2.5 MG TABLET PO (09:04)
[2024-05-22] MEDS: DOCUSATE SOD 100 MG CAPSULE PO ×2 (09:04→20:20)
[2024-05-22] MEDS: PANTOPRAZOLE INJ 40 MG VIAL IV (09:05)
[2024-05-22] MEDS: ZINC SULFATE 220 MG CAPSULE PO (09:05)
[2024-05-22] MEDS: cefTRIAXone 2 GM in SODIUM CHLORIDE 0.9% (P) 50 ML IV (09:07)
[2024-05-22] MEDS: METHADONE SOLUTION 1 MG/1 ML 65 MG PO (09:09)
[2024-05-22 09:26] LABS: HIV (1&2) Antibody Rapid Non-Reactive
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
--- NOTE | 2024-05-22 11:34 | PD.SURPROG ---
Documentation for date of: 05/22/24 Subjective Subjective Narrative: Patient is seen and examined. She is resting comfortably Exam Vital Signs Temp Pulse Resp BP Pulse Ox O2 Del Method O2 Flow Rate 97.3 F 78 18 161/87 H 98 Nasal Cannula 1 05/22/24 08:00 05/22/24 09:04 05/22/24 08:00 05/22/24 09:04 05/22/24 08:00 05/22/24 08:00 05/22/24 08:00 Constitutional Constitutional: no acute distress Routine Extremities Exam Comments: Right guillotine amputation stump with dressings clean, dry and intact Assessment & Plan Assessment Additional comments: Postop day #2 status post guillotine amputation of right distal leg. Echo revealed possible vegetation of tricuspid valve, patient is scheduled for CAT today. WBC still significantly elevated. As per operative report patient was noted to have significant amount of pus in his right foot with pockets extending to his leg. Despite washing the guillotine stump with Betadine mixed with peroxide and saline and warm saline there were still some residual pus emanating from the stump. Because of this reason I started patient on clindamycin which was discontinued by infectious disease Plan Patient had significantly infected right foot with pus pockets extending to his leg. Despite removal of his infected right foot and ID's recommendation to stop clindamycin, I will resume clindamycin as patient may still have infection of his right leg. Rocephin is appropriate antibiotic for possible vegetations and tricuspid valve been and possible endocarditis. However, I strongly believe that treating this diabetic patient's primary source with just Rocephin is not sufficient. Procedures Procedures Guillotine amputation of right leg at the ankle
--- NOTE | 2024-05-22 12:46 | PC.NURSE ---
Dr. Epperson at bedside answered all questions from pt and family, pt is ok to sit at bedside and transfer, no weight bearing on right leg
[2024-05-22] MEDS: CLINDAMYCIN 900MG IVPB 900 MG in PRE-MIXED 1 BAG 50 MG IV ×2 (14:05→21:37)
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
[2024-05-22] MEDS: POTASSIUM CHLORIDE 20 mEq TABCR 40 MEQ PO (16:02)
[2024-05-22] MEDS: Magnesium Sulfate 2 GM Ivpb 2 GM/50 ML BAG IV (16:04)
[2024-05-22] MEDS: carVEDILOL 3.125 MG TABLET 6.25 MG PO (17:25)
[2024-05-22] MEDS: ATORVASTATIN CALCIUM 10 MG TABLET PO (20:20)
[2024-05-22] MEDS: INSULIN LISPRO (AdmeLOG) 1 UNIT/0.01 ML UNIT SC (23:43)
[2024-05-23] VITALS (15 sets, daily range): BP systolic 109–159; BP diastolic 55–81; PULSE 70–94; RESP 16–98; TEMP 36.1–36.8; O2SAT 97–99; BMI 32.9
[2024-05-23] MEDS: GABAPENTIN 100 MG CAPSULE PO ×3 (05:24→21:05)
[2024-05-23] MEDS: METOCLOPRAMIDE INJ 5 MG/ML VIAL 2 ML IVP ×3 (05:25→21:05)
[2024-05-23] MEDS: CLINDAMYCIN 900MG IVPB 900 MG in PRE-MIXED 1 BAG 50 MG IV (05:27)
[2024-05-23 07:09] LABS: Basophils # (Auto) 0.1 Thou/mm3 (0.0-0.2); Basophils % (Auto) 0 % (0-2.5); Eosinophils # (Auto) 0.4 Thou/mm3 (0.0-0.5); Eosinophils % (Auto) 1 % (0-10); Hematocrit 22.8 % (41.0-53.0); Immature Granulocytes % (Auto) 11 % (0-0); Immature Granulocytes Auto 3.19 Thou/mm3 (0.00-0.00); Lymphocytes # (Auto) 4.1 Thou/mm3 (1.0-4.8); Lymphocytes % (Auto) 14 % (10-50); Mean Corpuscular HGB Conc 32.5 g/dl (31.0-37.0); Mean Corpuscular Hemoglobin 23.1 pg (25.0-35.0); Mean Corpuscular Volume 71 fL (80-100); Monocytes # (Auto) 1.5 Thou/mm3 (0.0-0.8); Monocytes % (Auto) 5 % (0-12); Neutrophils # (Auto) 21.1 Thou/mm3 (1.8-7.7); Neutrophils % (Auto) 70 % (37-80); Nucleated Red Blood Cell # 0.03 Thou/mm3 (0.00-0.00); Nucleated Red Blood Cell % 0 /100 WBC (0); Platelet Count 386 Thou/mm3 (140-440); RDW Standard Deviation 38.4 fL (35.1-43.9); Red Blood Count 3.21 Miln/mm3 (4.50-5.90); White Blood Count 30.3 Thou/mm3 (3.8-10.6)
[2024-05-23 07:20] LABS: Hemoglobin 7.4 g/dL (13.5-16.0)
[2024-05-23 07:34] LABS: Alanine Aminotransferase 23 U/L (10-49); Albumin, Serum 3.5 gm/dL (3.5-5.0); Albumin/Globulin Ratio 0.9 (1.2-2.2); Alkaline Phosphatase 294 U/L (46-116); Anion Gap 9 (7-16); Aspartate Amino Transferase 35 U/L (0-34); BUN/Creatinine Ratio 38 Ratio (12-20); Bilirubin,Total 0.2 mg/dL (0.3-1.2); Blood Urea Nitrogen 45 mg/dL (9-23); Calcium 8.2 mg/dL (8.3-10.6); Calcium (Corrected) 8.6 mg/dL (8.5-10.1); Carbon Dioxide 21.1 mMol/L (20.0-31.0); Chloride 107 mMol/L (98-107); Creatinine (Component) 1.2 mg/dL (0.6-1.3); Globulin 3.7 gm/dL (2.3-3.5); Glucose 140 mg/dL (74-106); Magnesium 1.9 mg/dL (1.6-2.6); Osmolality,Calculated 287 (275-295); Potassium 4.4 mMol/L (3.4-5.1); Sodium 137 mMol/L (136-145); Total Protein 7.2 gm/dL (5.7-8.2); eGFR > 60 See Note
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
[2024-05-23] MEDS: SENNA TABLET 1 TAB PO (09:57)
[2024-05-23] MEDS: DOCUSATE SOD 100 MG CAPSULE PO ×2 (09:57→21:04)
[2024-05-23] MEDS: ZINC SULFATE 220 MG CAPSULE PO (09:57)
[2024-05-23] MEDS: ASCORBIC ACID 250 MG TABLET 500 MG PO ×2 (10:00→21:04)
[2024-05-23] MEDS: Lisinopril 2.5 MG TABLET PO (10:01)
[2024-05-23] MEDS: PANTOPRAZOLE INJ 40 MG VIAL IV (10:01)
[2024-05-23] MEDS: carVEDILOL 3.125 MG TABLET 6.25 MG PO ×2 (10:02→17:37)
[2024-05-23] MEDS: cefTRIAXone 2 GM in SODIUM CHLORIDE 0.9% (P) 50 ML IV (10:02)
[2024-05-23] MEDS: POLYETHYLENE GLYCOL 17 GM PACKET PO (10:04)
[2024-05-23] MEDS: Magnesium Sulfate 1 gm Ivpb 1 GM/100 ML BAG IV (10:55)
[2024-05-23] MEDS: METHADONE SOLUTION 1 MG/1 ML 65 MG PO (10:56)
--- NOTE | 2024-05-23 10:56 | PC.SS ---
Follow up note: General Surgery consulted pt will have surgery for BKA Sunday.
[2024-05-23] MEDS: LEVOFLOXACIN/D5W 500 MG IVPB 500 MG/100 ML BAG 100 MG IV (12:19)
--- NOTE | 2024-05-23 14:47 | ESPR_ITS ---
Documentation for date of: 05/23/24 Subjective Subjective Interval history: Patient examined medical today. No acute overnight events. He is doing okay. States slept well. He also says that he had done some exercises for his legs. No other complaints at this time. Exam Vital Signs Temp Pulse Resp BP Pulse Ox O2 Del Method O2 Flow Rate 98.3 F 83 17 152/71 H 97 Room Air 1 05/23/24 11:48 05/23/24 11:48 05/23/24 11:48 05/23/24 11:48 05/23/24 11:48 05/23/24 11:48 05/22/24 12:00 Narrative Exam General: AAOx3, NAD, HEENT: Moist mucous membranes, conjunctiva clear, EOMI, PERRLA, Cardiovascular: S1, S2, radial pulses +2 bilat, RRR Pulmonary: CTAB bilat no cough, no wheezing GI: No tenderness to light or deep palpitation, no guarding, rigidity, rebound tenderness or distension Extremities: Various skin changes in the lower extremities, more so right lower extremity, with various stages of healing, R foot s/p guillotine amputation with bandage, left dorsalis pedis pulse +2 Neuro: AAOx3, no focal motor or sensory deficits in the UE or LE bilat Psych: Good judgement, thought and behavior Objective Labs 05/26/24 05:54 05/26/24 05:54 Labs: Laboratory Results - last 24 hr 05/23/24 06:20 WBC 30.3 H D RBC 3.21 L Hgb 7.4 L Hct 22.8 L MCV 71 L MCH 23.1 L MCHC 32.5 RDW Std Deviation 38.4 Plt Count 386 D Neut % (Auto) 70 Lymph % (Auto) 14 [place] % (Auto) 5 Eos % (Auto) 1 Baso % (Auto) 0 Neut # (Auto) 21.1 H Lymph # (Auto) 4.1 [place] # (Auto) 1.5 H Eos # (Auto) 0.4 Baso # (Auto) 0.1 Immature Gran # (Auto) 3.19 H Absolute Nucleated RBC 0.03 H Immature Gran % 11 H Nucleated RBC % 0 Sodium 137 Potassium 4.4 D Chloride 107 Carbon Dioxide 21.1 Anion Gap 9 BUN 45 H Creatinine 1.2 Estim Creat Clear Calc 85.0 eGFR > 60 BUN/Creatinine Ratio 38 H Glucose 140 H Calculated Osmolality 287 Calcium 8.2 L Corrected Calcium 8.6 Magnesium 1.9 Total Bilirubin 0.2 L AST 35 H ALT 23 Alkaline Phosphatase 294 H D Total Protein 7.2 Albumin 3.5 Globulin 3.7 H Albumin/Globulin Ratio 0.9 L Quality Measures Quality Measures VTE prophylaxis (Heparin) Assessment & Plan Assessment Current Active Medications: Generic Name Dose Route Start Last Admin Trade Name Freq PRN Reason Stop Dose Admin Acetaminophen 650 mg 05/17/24 15:35 05/22/24 04:03 Acetaminophen 325 Mg Tablet PO 06/16/24 15:34 650 mg Q6H PRN Administration Pain (1-3) and Fever >101.5 Ascorbic Acid 500 mg 05/20/24 21:00 05/23/24 10:00 Ascorbic Acid 250 Mg Tablet PO 06/19/24 20:59 500 mg BID TRISTON Administration Atorvastatin Calcium 10 mg 05/17/24 21:00 05/22/24 20:20 Atorvastatin Calcium 10 Mg Tablet PO 06/16/24 20:59 10 mg HS TRISTON Administration Carvedilol 6.25 mg 05/22/24 17:30 05/23/24 10:02 Carvedilol 3.125 Mg Tablet PO 06/21/24 17:29 6.25 mg BIDWM TRISTON Administration Patients Own Insulin 0 ea 05/17/24 16:33 05/23/24 11:03 Pump-Medtronic SC 06/16/24 16:29 Not Given Minimed DAILY TRISTON Dextrose 25 ml 05/19/24 08:36 Dextrose 50%-Water Inj 50 Ml Syringe IV 06/18/24 08:35 Q15MIN PRN BG 50-70 responsive npo pt Dextrose 50 ml 05/19/24 08:36 Dextrose 50%-Water Inj 50 Ml Syringe IV 06/18/24 08:35 Q15MIN PRN BG <50 OR BG <70 & pt unresponsive Docusate Sodium 100 mg 05/20/24 21:00 05/23/24 09:57 Docusate Sod 100 Mg Capsule PO 06/19/24 20:59 100 mg BID TRISTON Administration Protocol Gabapentin 100 mg 05/17/24 22:00 05/23/24 14:16 Gabapentin 100 Mg Capsule PO 06/16/24 21:59 100 mg TID TRISTON Administration Glucagon 1 mg 05/17/24 15:35 Glucagon Inj 1 Mg Vial IM Q15MIN PRN BG <70, and no IV access Heparin Sodium (Porcine) 5,000 unit 05/18/24 21:00 05/21/24 08:55 Heparin Sod Inj 5000 Unit/Ml Vial SC 05/31/24 15:44 5,000 unit Q12HR TRISTON Administration Ceftriaxone Sodium 2 gm/ 50 mls @ 100 mls/hr 05/22/24 09:00 05/23/24 10:02 Sodium Chloride IV 05/29/24 08:59 100 mls/hr QDAY TRISTON Administration Levofloxacin/Dextrose 500 mg in 100 mls @ 100 mls/hr 05/23/24 11:00 05/23/24 12:19 Levaquin Ivpb IV 05/30/24 10:59 100 mls/hr QDAY TRISTON Administration Insulin Human Lispro 0 unit 05/20/24 15:52 05/23/24 12:29 Insulin Lispro (Admelog) 1 Unit/0.01 Ml Unit SC 06/18/24 17:59 Not Given Q6HR TRISTON Protocol Lisinopril 2.5 mg 05/22/24 09:00 05/23/24 10:01 Lisinopril 2.5 Mg Tablet PO 06/21/24 08:59 2.5 mg QDAY TRISTON Administration Methadone HCl 65 mg 05/19/24 09:00 05/23/24 10:56 Methadone Solution 1 Mg/1 Ml PO 05/24/24 08:59 65 mg QDAY TRISTON Administration Protocol Metoclopramide HCl 5 mg 05/19/24 14:00 05/23/24 14:16 Metoclopramide Inj 5 Mg/Ml Vial 2 Ml IVP 06/18/24 13:59 5 mg Q8HR TRISTON Administration Protocol Ondansetron HCl 4 mg 05/18/24 01:49 05/19/24 00:01 Ondansetron Inj 2 Mg/Ml Inj 2 Ml IV 06/17/24 01:48 4 mg Q6HR PRN Administration NAUSEA OR VOMITING Protocol Pantoprazole Sodium 40 mg 05/18/24 14:00 05/23/24 10:01 Pantoprazole Inj 40 Mg Vial IV 06/17/24 13:59 40 mg QDAY TRISTON Administration Polyethylene Glycol 17 gm 05/18/24 13:55 05/23/24 10:04 Polyethylene Glycol 17 Gm Packet PO 06/17/24 13:54 17 gm QDAY TRISTON Administration Sennosides 1 tab 05/18/24 14:00 05/23/24 09:57 Senna Tablet PO 06/17/24 13:59 1 tab QDAY TRISTON Administration Protocol Tramadol HCl 50 mg 05/22/24 15:41 Tramadol Hcl 50 Mg Tablet PO 05/27/24 15:40 Q6HR PRN Pain 4-7 Zinc Sulfate 220 mg 05/21/24 09:00 05/23/24 09:57 Zinc Sulfate 220 Mg Capsule PO 06/20/24 08:59 220 mg QDAY TRISTON Administration Plan Assessment: Mr. Muhammad is a 58-year-old male with past medical history of diabetes mellitus, hypertension, hyperlipidemia, chronic pain and IV heroin drug (currently on methadone) use who presented to [facility] with a chief complaint of right leg swelling and tenderness. Patient admitted for osteomyelitis right foot, possible surgical intervention with below knee amputation. At this time, pt refuses to see some team members at this time due to not wanting to discuss plan other than with the primary doctor. 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 Saucedo, pt will not need cardiac clearance, which was also voiced by general surgery, Dr. Epperson as well the attending physician, Dr. Giron. Pt to get BKA on Sunday Wound culture from procedure showed group b strep, resistant to clindamycin, sensitive to Rocephin WBC count 30 today, has been increasing, likely secondary due to amputation, pt has not spiked a fever either Plan: -Continue Rocephin 2g every day and discontinue clindamycin -BC NG2D -Surgery consult appreciate recs -Tylenol, tramadol for pain #HFrEF with systolic dysfunction and wall motion abnormalities, EF 40% #Echogenic mass on tricuspid valve #? Infective endocarditis Echocardiogram shows possible vegetation on valves, recommend for CAT follow-up Patient has history of drug use but has not used in a while per patient Blood cultures have been negative so far Echo: EF of 40, systolic dysfunction and wall motion abnormalities At this time, patient refuses CAT, will do as outpatient only Will titrate Coreg as needed Plan: ?BC NG2D ?ID on consult, appreciate recs ?Continue with Rocephin and clindamycin ?Cardiology on consult, appreciate recs ?Continue Coreg to 6.25 ?Continue lisinopril 2.5 ?Keep mag and potassium above 2 and 4 respectively #Acute kidney injury, improving #PADDY on CKD Patient presented with BUN 59, creatinine 3.8 and GFR 17, baseline unknown Creatinine 1.2 today, compared to 1.4 yesterday Patient likely will have some form of CKD moving forward, we will have to establish baseline in the coming days Plan: -Nephrology consulted in ED, appreciate recommendations -Avoid nephrotoxic agents -Renally dose medications ?As above #Diabetes mellitus, insulin-dependent A1c of 8.3 Patient's blood sugars have not been controlled, have been in the 200s, will adjust management as patient currently uses insulin pump Will adjust insulin units throughout admission Insulin pump was removed initially because sugars weren't controlled and then was put on basal and SSI, as per family, pt was removing pump by himself w/o notifying nurses and providers Sugars continued to elevate overnight, sugars reaching 400s Family wants to use insulin pump and said they will put his insulin pump by themselves if his blood sugar continues to be above 300 We explained to them that the plan is to control his blood sugar and we want to know how to control his blood sugar in predictable fashion and putting the insulin pump without notifiying the provider can put patient at risk for hypoglycemia and further complications Family will continue to use insulin pump, we gave 40 units lispro yesterday since patient's sugar was up in the 400s Informed risk and benefits with patient and family in regards to the using the insulin pump instead of us managing insulin primarily, however they insist on using insulin pump in the hospital and us giving some bolus. We highly recommended patient to follow-up with [facility] outpatient as patient has PCP managing insulin pump Plan: -SSI sensitive ?Patient to continue using insulin pump -Glucose checks ACHS -Carb consistent low diet #Hypertension #Hyperlipidemia -Blood pressure soft, patient on metoprolol tartrate 50 twice daily, lisinopril 40 daily and hydrochlorothiazide 25 daily at home will hold. -Hold lisinopril and hydrochlorothiazide due to PADDY -Continue home dose atorvastatin 10 at bedtime -Lisinopril and Coreg as above #Chronic pain #History of IV drug use #Methadone dependence #Chronic hep C Patient has had he has had a history of chronic hep C for a while now, has gone for 3-month treatment in the past but is stable right now Hep C IgG positive Plan: -Resumed gabapentin 100 3 times daily ?Resume home methadone 65 mg ?Limits narcotics considering patient has methadone #Electrolyte imbalances #Hypomagnesemia -Replete as needed DVT prophylaxis: Heparin GI prophylaxis: Not indicated Diet: Carb consistent low, renal, cardiac Lines: Peripheral IV Code status: Full code Case discussed with my attending physician, Dr. Mack Diamond PGY-1 Attending Provider Attestation/Addendum I have discussed and was present for the essential components of the history, physical examination, diagnosis, and treatment plan with the resident. I agree with the patient's care as documented by the resident and amended herein by me. Manuel Giron DO. Although this document has been carefully reviewed, there may still be some phonetic and other typographical errors. These errors are purely grammatical due to imperfections in the software program and should not be construed in any way to compromise the substance of the patient's medical care during this visit.
--- NOTE | 2024-05-23 17:47 | PC.NURSE ---
Dr. Epperson at bedside to do dressing change
[2024-05-23] MEDS: traMADol HCL 50 MG TABLET PO ×2 (17:51→19:28)
--- NOTE | 2024-05-23 18:02 | PD.SURPROG ---
Documentation for date of: 05/23/24 Subjective Subjective Narrative: Patient is seen and examined. He is resting comfortably Exam Vital Signs Temp Pulse Resp BP Pulse Ox O2 Del Method O2 Flow Rate 97.1 F 86 19 135/65 H 97 Room Air 1 05/23/24 16:00 05/23/24 17:37 05/23/24 16:00 05/23/24 17:37 05/23/24 16:00 05/23/24 16:00 05/22/24 12:00 Constitutional Constitutional: no acute distress Routine Extremities Exam Comments: Right guillotine amputation stump dressings removed. There is no bleeding however he has some purulent drainage emanating from the stump Assessment & Plan Assessment Additional comments: Status post guillotine amputation of right leg at the ankle Plan Clindamycin was discontinued as cultures revealed resistance. Onset I added Levaquin for double coverage as his WBC is going up Procedures Procedures Guillotine amputation of right leg at the ankle
[2024-05-23] MEDS: ACETAMINOPHEN 325 MG TABLET 650 MG PO (19:31)
[2024-05-23] MEDS: CYCLObenzaPRINE 5 MG TABLET PO (21:04)
[2024-05-23] MEDS: ATORVASTATIN CALCIUM 10 MG TABLET PO (21:05)
[2024-05-24] VITALS (14 sets, daily range): BP systolic 96–131; BP diastolic 49–67; PULSE 73–87; RESP 16–98; TEMP 35.6–36.6; O2SAT 95–98
[2024-05-24] MEDS: GABAPENTIN 100 MG CAPSULE PO ×3 (05:33→20:10)
[2024-05-24] MEDS: METOCLOPRAMIDE INJ 5 MG/ML VIAL 2 ML IVP ×3 (05:33→20:10)
[2024-05-24 05:52] LABS: Basophils # (Auto) 0.1 Thou/mm3 (0.0-0.2); Basophils % (Auto) 0 % (0-2.5); Eosinophils # (Auto) 0.4 Thou/mm3 (0.0-0.5); Eosinophils % (Auto) 1 % (0-10); Hematocrit 22.8 % (41.0-53.0); Immature Granulocytes % (Auto) 12 % (0-0); Immature Granulocytes Auto 3.67 Thou/mm3 (0.00-0.00); Lymphocytes % (Auto) 13 % (10-50); Mean Corpuscular HGB Conc 32.5 g/dl (31.0-37.0); Mean Corpuscular Hemoglobin 23.2 pg (25.0-35.0); Mean Corpuscular Volume 72 fL (80-100); Monocytes # (Auto) 1.1 Thou/mm3 (0.0-0.8); Monocytes % (Auto) 4 % (0-12); Neutrophils # (Auto) 21.4 Thou/mm3 (1.8-7.7); Neutrophils % (Auto) 70 % (37-80); Nucleated Red Blood Cell # 0.03 Thou/mm3 (0.00-0.00); Nucleated Red Blood Cell % 0 /100 WBC (0); Platelet Count 463 Thou/mm3 (140-440); RDW Standard Deviation 38.3 fL (35.1-43.9); Red Blood Count 3.19 Miln/mm3 (4.50-5.90); White Blood Count 30.7 Thou/mm3 (3.8-10.6)
[2024-05-24 05:57] LABS: Hemoglobin 7.4 g/dL (13.5-16.0)
--- NOTE | 2024-05-24 06:00 | PC.NURSE ---
called Dr. [place] regarding patient's methadone scheduled at 0900, has a stope date of 05/24/24 at 0859, per MD will renew order. Additionally, asked MD about patient's BG checks. Since patient's insulin lispro is Q6, if it was okay to change BG from ACHS to Q6, MD okayed.
[2024-05-24 06:28] LABS: Alanine Aminotransferase 23 U/L (10-49); Albumin, Serum 3.7 gm/dL (3.5-5.0); Anion Gap 10 (7-16); Aspartate Amino Transferase 27 U/L (0-34); BUN/Creatinine Ratio 32 Ratio (12-20); Bilirubin,Total 0.2 mg/dL (0.3-1.2); Blood Urea Nitrogen 48 mg/dL (9-23); Calcium 8.5 mg/dL (8.3-10.6); Calcium (Corrected) 8.7 mg/dL (8.5-10.1); Carbon Dioxide 19.9 mMol/L (20.0-31.0); Chloride 106 mMol/L (98-107); Creatinine (Component) 1.5 mg/dL (0.6-1.3); Glucose 135 mg/dL (74-106); Magnesium 1.7 mg/dL (1.6-2.6); Osmolality,Calculated 286 (275-295); Potassium 4.5 mMol/L (3.4-5.1); Sodium 136 mMol/L (136-145); Total Protein 7.4 gm/dL (5.7-8.2); eGFR 53 See Note
[2024-05-24 06:29] LABS: Alkaline Phosphatase 265 U/L (46-116); Globulin 3.7 gm/dL (2.3-3.5)
[2024-05-24] MEDS: traMADol HCL 50 MG TABLET PO (06:35)
[2024-05-24] MEDS: ACETAMINOPHEN 325 MG TABLET 650 MG PO ×2 (06:36→20:09)
--- NOTE | 2024-05-24 06:41 | PC.NURSE ---
called Dr. Irene regarding patient's pain in his R leg which is 10/, gave patient PRN tramadol and tylenol but states may need something stronger as his leg is hurting beyong a 10. Daughter at bedside asked why can't he have the morphine anymore? referring to the patient, told patient and family will let the ddoctors know, no new orders received for now, per Dr. Irene will let the day team know and they can put orders in.
[2024-05-24] MEDS: carVEDILOL 3.125 MG TABLET 6.25 MG PO ×2 (10:35→17:14)
[2024-05-24] MEDS: ZINC SULFATE 220 MG CAPSULE PO (10:38)
[2024-05-24] MEDS: SENNA TABLET 1 TAB PO (10:38)
[2024-05-24] MEDS: DOCUSATE SOD 100 MG CAPSULE PO ×2 (10:39→20:09)
[2024-05-24] MEDS: ASCORBIC ACID 250 MG TABLET 500 MG PO ×2 (10:39→20:09)
[2024-05-24] MEDS: Lisinopril 2.5 MG TABLET PO (10:39)
[2024-05-24] MEDS: METHADONE SOLUTION 1 MG/1 ML 65 MG PO (10:39)
[2024-05-24] MEDS: PANTOPRAZOLE INJ 40 MG VIAL IV (10:43)
[2024-05-24] MEDS: cefTRIAXone 2 GM in SODIUM CHLORIDE 0.9% (P) 50 ML IV (10:45)
[2024-05-24] MEDS: POLYETHYLENE GLYCOL 17 GM PACKET PO (11:01)
[2024-05-24] MEDS: HEPARIN SOD INJ 5000 UNIT/ML VIAL SC ×2 (11:02→20:10)
[2024-05-24] MEDS: LEVOFLOXACIN/D5W 500 MG IVPB 500 MG/100 ML BAG 100 MG IV (11:57)
[2024-05-24] MEDS: Magnesium Sulfate 4 GM Ivpb 4 GM/50 ML BAG IV (13:12)
--- NOTE | 2024-05-24 13:43 | PD.RESPRO ---
Documentation for date of: 05/24/24 Subjective Subjective Interval history: Patient reports that he was in a lot of pain overnight. Especially after Dr. Epperson saw him and try to verify there was no pus drainage from his postsurgical site. Patient is requesting breakthrough pain medication just in case he needs it. Otherwise no other complaints. Exam Vital Signs Temp Pulse Resp BP Pulse Ox O2 Del Method O2 Flow Rate 97.9 F 84 20 118/63 98 Room Air 1 05/24/24 12:00 05/24/24 12:00 05/24/24 12:00 05/24/24 12:05/24/24 12:00 05/24/24 12:00 05/24/24 04:00 Narrative Exam General: AAOx3, NAD, HEENT: Moist mucous membranes, conjunctiva clear, EOMI, PERRLA, Cardiovascular: S1, S2, radial pulses +2 bilat, RRR Pulmonary: CTAB bilat no cough, no wheezing GI: No tenderness to light or deep palpitation, no guarding, rigidity, rebound tenderness or distension Extremities: Various skin changes in the lower extremities, more so right lower extremity, with various stages of healing, R foot s/p guillotine amputation with bandage, no active pus drainage Neuro: AAOx3, no focal motor or sensory deficits in the UE or LE bilat Psych: Good judgement, thought and behavior Objective Labs 05/30/24 05:33 05/30/24 05:33 Labs: Laboratory Results - last 24 hr 05/24/24 05:30 WBC 30.7 H RBC 3.19 L Hgb 7.4 L Hct 22.8 L MCV 72 L MCH 23.2 L MCHC 32.5 RDW Std Deviation 38.3 Plt Count 463 H D Neut % (Auto) 70 Lymph % (Auto) 13 [place] % (Auto) 4 Eos % (Auto) 1 Baso % (Auto) 0 Neut # (Auto) 21.4 H Lymph # (Auto) 4.0 [place] # (Auto) 1.1 H Eos # (Auto) 0.4 Baso # (Auto) 0.1 Immature Gran # (Auto) 3.67 H Absolute Nucleated RBC 0.03 H Immature Gran % 12 H Nucleated RBC % 0 Sodium 136 Potassium 4.5 Chloride 106 Carbon Dioxide 19.9 L Anion Gap 10 BUN 48 H Creatinine 1.5 H Estim Creat Clear Calc 68.0 eGFR 53 L BUN/Creatinine Ratio 32 H Glucose 135 H Calculated Osmolality 286 Calcium 8.5 Corrected Calcium 8.7 Magnesium 1.7 Total Bilirubin 0.2 L AST 27 ALT 23 Alkaline Phosphatase 265 H D Total Protein 7.4 Albumin 3.7 Globulin 3.7 H Albumin/Globulin Ratio 1.0 L Quality Measures Quality Measures VTE prophylaxis (Heparin) Assessment & Plan Assessment Current Active Medications: Generic Name Dose Route Start Last Admin Trade Name Freq PRN Reason Stop Dose Admin Acetaminophen 650 mg 05/17/24 15:35 05/24/24 06:36 Acetaminophen 325 Mg Tablet PO 06/16/24 15:34 650 mg Q6H PRN Administration Pain (1-3) and Fever >101.5 Ascorbic Acid 500 mg 05/20/24 21:00 05/24/24 10:39 Ascorbic Acid 250 Mg Tablet PO 06/19/24 20:59 500 mg BID [facility]ON Administration Atorvastatin Calcium 10 mg 05/17/24 21:00 05/23/24 21:05 Atorvastatin Calcium 10 Mg Tablet PO 06/16/24 20:59 10 mg HS TRISTON Administration Carvedilol 6.25 mg 05/22/24 17:30 05/24/24 10:35 Carvedilol 3.125 Mg Tablet PO 06/21/24 17:29 6.25 mg BIDWM TRISTON Administration Patients Own Insulin 0 ea 05/17/24 16:33 05/24/24 11:01 Pump-Medtronic SC 06/16/24 16:29 Not Given Minimed DAILY [facility] Dextrose 25 ml 05/19/24 08:36 Dextrose 50%-Water Inj 50 Ml Syringe IV 06/18/24 08:35 Q15MIN PRN BG 50-70 responsive npo pt Dextrose 50 ml 05/19/24 08:36 Dextrose 50%-Water Inj 50 Ml Syringe IV 06/18/24 08:35 Q15MIN PRN BG <50 OR BG <70 & pt unresponsive Docusate Sodium 100 mg 05/20/24 21:00 05/24/24 10:39 Docusate Sod 100 Mg Capsule PO 06/19/24 20:59 100 mg BID [facility] Administration Protocol Gabapentin 100 mg 05/17/24 22:00 05/24/24 13:12 Gabapentin 100 Mg Capsule PO 06/16/24 21:59 100 mg TID [facility] Administration Glucagon 1 mg 05/17/24 15:35 Glucagon Inj 1 Mg Vial IM Q15MIN PRN BG <70, and no IV access Heparin Sodium (Porcine) 5,000 unit 05/18/24 21:00 05/24/24 11:02 Heparin Sod Inj 5000 Unit/Ml Vial SC 05/31/24 15:44 5,000 unit Q12HR [facility] Administration Ceftriaxone Sodium 2 gm/ 50 mls @ 100 mls/hr 05/22/24 09:00 05/24/24 10:45 Sodium Chloride IV 05/29/24 08:59 100 mls/hr QDAY [facility] Administration Levofloxacin/Dextrose 500 mg in 100 mls @ 100 mls/hr 05/23/24 11:00 05/24/24 11:57 Levaquin Ivpb IV 05/30/24 10:59 100 mls/hr QDAY [facility] Administration Insulin Human Lispro 0 unit 05/20/24 15:52 05/24/24 13:04 Insulin Lispro (Admelog) 1 Unit/0.01 Ml Unit SC 06/18/24 17:59 Not Given Q6HR [facility] Protocol Lisinopril 2.5 mg 05/22/24 09:00 05/24/24 10:39 Lisinopril 2.5 Mg Tablet PO 06/21/24 08:59 2.5 mg QDAY [facility] Administration Methadone HCl 65 mg 05/24/24 09:00 05/24/24 10:39 Methadone Solution 1 Mg/1 Ml PO 05/29/24 08:59 65 mg QDAY [facility] Administration Protocol Metoclopramide HCl 5 mg 05/19/24 14:00 05/24/24 13:12 Metoclopramide Inj 5 Mg/Ml Vial 2 Ml IVP 06/18/24 13:59 5 mg Q8HR [facility] Administration Protocol Morphine Sulfate 2 mg 05/24/24 13:42 Morphine Sulf Inj 10 Mg/Ml Vial IVP 05/29/24 13:41 Q4HR PRN BREAKTHROUGH PAIN Ondansetron HCl 4 mg 05/18/24 01:49 05/19/24 00:01 Ondansetron Inj 2 Mg/Ml Inj 2 Ml IV 06/17/24 01:48 4 mg Q6HR PRN Administration NAUSEA OR VOMITING Protocol Pantoprazole Sodium 40 mg 05/18/24 14:00 05/24/24 10:43 Pantoprazole Inj 40 Mg Vial IV 06/17/24 13:59 40 mg QDAY [facility] Administration Polyethylene Glycol 17 gm 05/18/24 13:55 05/24/24 11:01 Polyethylene Glycol 17 Gm Packet PO 06/17/24 13:54 17 gm QDAY [facility] Administration Sennosides 1 tab 05/18/24 14:00 05/24/24 10:38 Senna Tablet PO 06/17/24 13:59 1 tab QDAY [facility] Administration Protocol Tramadol HCl 50 mg 05/22/24 15:41 05/24/24 06:35 Tramadol Hcl 50 Mg Tablet PO 05/27/24 15:40 50 mg Q6HR PRN Administration Pain 4-7 Zinc Sulfate 220 mg 05/21/24 09:00 05/24/24 10:38 Zinc Sulfate 220 Mg Capsule PO 06/20/24 08:59 220 mg QDAY [facility] Administration Plan Mr. Muhammad is a 58-year-old male with past medical history of diabetes mellitus, hypertension, hyperlipidemia, chronic pain and IV heroin drug (currently on methadone) use who presented to [facility] with a chief complaint of right leg swelling and tenderness. Patient admitted for osteomyelitis right foot, possible surgical intervention with below knee amputation. At this time, pt refuses to see some team members at this time due to not wanting to discuss plan other than with the primary doctor. 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 Saucedo, pt will not need cardiac clearance, which was also voiced by general surgery, Dr. Epperson as well the attending physician, Dr. Giron. Pt to get BKA on Sunday Wound culture from procedure showed group b strep, resistant to clindamycin, sensitive to Rocephin WBC count 30 today, has been increasing, likely secondary due to amputation, pt has not spiked a fever Plan: -Continue Rocephin 2g IV daily -Levaquin 500 mg IV daily -BC NG2D -Surgery consult appreciate recs -Multimodal pain control including tramadol, Tylenol, methadone. 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Continue lisinopril 2.5 ?Keep mag and potassium above 2 and 4 respectively #Acute kidney injury, improving #PADDY on CKD Patient presented with BUN 59, creatinine 3.8 and GFR 17, baseline unknown Creatinine 1.5 today, compared to 1.2 yesterday Patient likely will have some form of CKD moving forward, we will have to establish baseline in the coming days Plan: -Nephrology consulted in ED, appreciate recommendations -Avoid nephrotoxic agents -Renally dose medications ?As above #Diabetes mellitus, insulin-dependent A1c of 8.3 Patient's blood sugars have not been controlled, have been in the 200s, will adjust management as patient currently uses insulin pump Will adjust insulin units throughout admission Insulin pump was removed initially because sugars weren't controlled and then was put on basal and SSI, as per family, pt was removing pump by himself w/o notifying nurses and providers Sugars continued to elevate overnight, sugars reaching 400s Family wants to use insulin pump and said they will put his insulin pump by themselves if his blood sugar continues to be above 300 We explained to them that the plan is to control his blood sugar and we want to know how to control his blood sugar in predictable fashion and putting the insulin pump without notifiying the provider can put patient at risk for hypoglycemia and further complications Family will continue to use insulin pump, we gave 40 units lispro yesterday since patient's sugar was up in the 400s Informed risk and benefits with patient and family in regards to the using the insulin pump instead of us managing insulin primarily, however they insist on using insulin pump in the hospital and us giving some bolus. We highly recommended patient to follow-up with filling machine tender outpatient as patient has PCP managing insulin pump Plan: -SSI sensitive ?Patient to continue using insulin pump -Glucose checks ACHS -Carb consistent low diet #Hypertension #Hyperlipidemia -Blood pressure soft, patient on metoprolol tartrate 50 twice daily, lisinopril 40 daily and hydrochlorothiazide 25 daily at home will hold. -Hold lisinopril and hydrochlorothiazide due to PADDY -Continue home dose atorvastatin 10 at bedtime -Lisinopril and Coreg as above #Chronic pain #History of IV drug use #Methadone dependence #Chronic hep C Patient has had he has had a history of chronic hep C for a while now, has gone for 3-month treatment in the past but is stable right now Hep C IgG positive Plan: -Resumed gabapentin 100 3 times daily ?Resume home methadone 65 mg #Electrolyte imbalances #Hypomagnesemia -Replete as needed DVT prophylaxis: Heparin GI prophylaxis: Not indicated Diet: Carb consistent low, renal, cardiac Lines: Peripheral IV Code status: Full code The patient's plan was discussed with attending Dr. Velasco. Malcolm Chun, DO PGY1 Internal Medicine Attending Provider Attestation/Addendum 58-year-old male with multiple comorbidities including hypertension, hyperlipidemia, type 2 diabetes mellitus on insulin and chronic pain syndrome on methadone who presented to the ER on 05/17/2024 with right leg swelling found to have osteomyelitis and subsequently underwent right BKA. During course of hospitalization, patient underwent echocardiogram with findings of heart failure with reduced EF with EF 40% and possible mass/vegetation on the tricuspid valve and subsequently plan was to do CAT however patient refused. In addition, plan was to obtain a PICC line for IV antibiotic therapy however patient's and patient himself refused stating that they would rather do p.o. antibiotic therapy for 6 weeks until they get their CAT as outpatient. Counseled him regarding need for IV antibiotic therapy given that there is a concern for endocarditis and explained to them the risk of worsening disease progression which can lead to cardiac arrest and . They understand and would like to proceed with p.o. antibiotic therapy despite extensive counseling. Awaiting general surgery inputs. I reviewed above note and agree with findings and plans. I have also personally examined the patient with medicine team and went over assessment and plan with medical team including mechanical engineering intern and resident physician.
[2024-05-24] MEDS: ATORVASTATIN CALCIUM 10 MG TABLET PO (20:09)
[2024-05-25] VITALS (11 sets, daily range): BP systolic 97–125; BP diastolic 54–71; PULSE 71–84; RESP 14–22; TEMP 36.1–36.6; O2SAT 94–99
[2024-05-25 05:36] LABS: Basophils # (Auto) 0.1 Thou/mm3 (0.0-0.2); Basophils % (Auto) 0 % (0-2.5); Eosinophils # (Auto) 0.4 Thou/mm3 (0.0-0.5); Eosinophils % (Auto) 2 % (0-10); Immature Granulocytes % (Auto) 10 % (0-0); Immature Granulocytes Auto 2.41 Thou/mm3 (0.00-0.00); Lymphocytes # (Auto) 3.8 Thou/mm3 (1.0-4.8); Lymphocytes % (Auto) 16 % (10-50); Mean Corpuscular HGB Conc 32.3 g/dl (31.0-37.0); Mean Corpuscular Hemoglobin 23.7 pg (25.0-35.0); Mean Corpuscular Volume 73 fL (80-100); Monocytes # (Auto) 1.1 Thou/mm3 (0.0-0.8); Monocytes % (Auto) 5 % (0-12); Neutrophils # (Auto) 16.3 Thou/mm3 (1.8-7.7); Neutrophils % (Auto) 68 % (37-80); Nucleated Red Blood Cell # 0.02 Thou/mm3 (0.00-0.00); Nucleated Red Blood Cell % 0 /100 WBC (0); Platelet Count 542 Thou/mm3 (140-440); RDW Standard Deviation 39.8 fL (35.1-43.9); White Blood Count 24.1 Thou/mm3 (3.8-10.6)
[2024-05-25 05:50] LABS: Hemoglobin 7.1 g/dL (13.5-16.0)
[2024-05-25] MEDS: GABAPENTIN 100 MG CAPSULE PO ×3 (06:00→21:29)
[2024-05-25] MEDS: METOCLOPRAMIDE INJ 5 MG/ML VIAL 2 ML IVP ×3 (06:00→21:28)
[2024-05-25 06:26] LABS: Alanine Aminotransferase 14 U/L (10-49); Albumin, Serum 3.7 gm/dL (3.5-5.0); Alkaline Phosphatase 232 U/L (46-116); Anion Gap 10 (7-16); Aspartate Amino Transferase 22 U/L (0-34); BUN/Creatinine Ratio 25 Ratio (12-20); Bilirubin,Total 0.2 mg/dL (0.3-1.2); Blood Urea Nitrogen 45 mg/dL (9-23); Calcium 8.6 mg/dL (8.3-10.6); Calcium (Corrected) 8.8 mg/dL (8.5-10.1); Carbon Dioxide 16.8 mMol/L (20.0-31.0); Chloride 106 mMol/L (98-107); Creatinine (Component) 1.8 mg/dL (0.6-1.3); Estimated Creatinine Clearance 56.7 mL/min (>60); Globulin 3.7 gm/dL (2.3-3.5); Glucose 118 mg/dL (74-106); Magnesium 2.3 mg/dL (1.6-2.6); Osmolality,Calculated 278 (275-295); Potassium 4.6 mMol/L (3.4-5.1); Sodium 133 mMol/L (136-145); Total Protein 7.4 gm/dL (5.7-8.2); eGFR 43 See Note
[2024-05-25] MEDS: POLYETHYLENE GLYCOL 17 GM PACKET PO (09:00)
[2024-05-25] MEDS: carVEDILOL 3.125 MG TABLET 6.25 MG PO ×2 (09:00→17:14)
[2024-05-25] MEDS: ASCORBIC ACID 250 MG TABLET 500 MG PO ×2 (09:01→21:29)
[2024-05-25] MEDS: cefTRIAXone 2 GM in SODIUM CHLORIDE 0.9% (P) 50 ML IV (09:01)
[2024-05-25] MEDS: SENNA TABLET 1 TAB PO (09:01)
[2024-05-25] MEDS: ZINC SULFATE 220 MG CAPSULE PO (09:01)
[2024-05-25] MEDS: PANTOPRAZOLE INJ 40 MG VIAL IV (09:01)
[2024-05-25] MEDS: DOCUSATE SOD 100 MG CAPSULE PO ×2 (09:01→21:29)
[2024-05-25] MEDS: METHADONE SOLUTION 1 MG/1 ML 65 MG PO (09:02)
[2024-05-25] MEDS: LEVOFLOXACIN/D5W 500 MG IVPB 500 MG/100 ML BAG 100 MG IV (09:02)
[2024-05-25] MEDS: HEPARIN SOD INJ 5000 UNIT/ML VIAL SC ×2 (09:08→21:29)
[2024-05-25 09:13] LABS: Ferritin 222 ng/mL (10.5-307.3); Iron 31 mcg/dL (65-175); Total Iron Binding Capacity 338 mcg/dL (250-425)
--- NOTE | 2024-05-25 12:17 | ESPR_ITS ---
Documentation for date of: 05/25/24 Subjective Subjective Interval history: Patient examined at bedside today. No acute overnight events. Says that he has not had a bowel movement in the past 5 days, requesting enema. Says that he would like to continue moving around more as much as tolerated. No other complaints at this time. Exam Vital Signs Temp Pulse Resp BP Pulse Ox O2 Del Method O2 Flow Rate 97.4 F 79 14 115/71 98 Room Air 1 05/25/24 12:00 05/25/24 12:00 05/25/24 12:00 05/25/24 12:00 05/25/24 12:00 05/25/24 12:00 05/24/24 04:00 Narrative Exam General: AAOx3, NAD, HEENT: Moist mucous membranes, conjunctiva clear, EOMI, PERRLA, Cardiovascular: S1, S2, radial pulses +2 bilat, RRR Pulmonary: CTAB bilat no cough, no wheezing GI: No tenderness to light or deep palpitation, no guarding, rigidity, rebound tenderness or distension Extremities: Various skin changes in the lower extremities, more so right lower extremity, with various stages of healing, R foot s/p guillotine amputation with bandage, left dorsalis pedis pulse +2 Neuro: AAOx3, no focal motor or sensory deficits in the UE or LE bilat Psych: Cooperative Objective Labs 05/30/24 05:33 05/30/24 05:33 Labs: Laboratory Results - last 24 hr 05/25/24 04:32 WBC 24.1 H D RBC 3.00 L Hgb 7.1 L Hct 22.0 L MCV 73 L MCH 23.7 L MCHC 32.3 RDW Std Deviation 39.8 Plt Count 542 H D Neut % (Auto) 68 Lymph % (Auto) 16 Turner % (Auto) 5 Eos % (Auto) 2 Baso % (Auto) 0 Neut # (Auto) 16.3 H Lymph # (Auto) 3.8 Turner # (Auto) 1.1 H Eos # (Auto) 0.4 Baso # (Auto) 0.1 Immature Gran # (Auto) 2.41 H Absolute Nucleated RBC 0.02 H Immature Gran % 10 H Nucleated RBC % 0 Sodium 133 L Potassium 4.6 Chloride 106 Carbon Dioxide 16.8 L Anion Gap 10 BUN 45 H Creatinine 1.8 H Estim Creat Clear Calc 56.7 L eGFR 43 L BUN/Creatinine Ratio 25 H Glucose 118 H Calculated Osmolality 278 Calcium 8.6 Corrected Calcium 8.8 Magnesium 2.3 Iron 31 L TIBC 338 Ferritin 222 Total Bilirubin 0.2 L AST 22 ALT 14 Alkaline Phosphatase 232 H D Total Protein 7.4 Albumin 3.7 Globulin 3.7 H Albumin/Globulin Ratio 1.0 L Quality Measures Quality Measures VTE prophylaxis (Heparin) Assessment & Plan Assessment Current Active Medications: Generic Name Dose Route Start Last Admin Trade Name Freq PRN Reason Stop Dose Admin Acetaminophen 650 mg 05/17/24 15:35 05/24/24 20:09 Acetaminophen 325 Mg Tablet PO 06/16/24 15:34 650 mg Q6H PRN Administration Pain (1-3) and Fever >101.5 Ascorbic Acid 500 mg 05/20/24 21:00 05/25/24 09:01 Ascorbic Acid 250 Mg Tablet PO 06/19/24 20:59 500 mg BID TRISTON Administration Atorvastatin Calcium 10 mg 05/17/24 21:00 05/24/24 20:09 Atorvastatin Calcium 10 Mg Tablet PO 06/16/24 20:59 10 mg HS TRISTON Administration Carvedilol 6.25 mg 05/22/24 17:30 05/25/24 09:00 Carvedilol 3.125 Mg Tablet PO 06/21/24 17:29 6.25 mg BIDWM TRISTON Administration Patients Own Insulin 0 ea 05/17/24 16:33 05/25/24 09:30 Pump-Medtronic SC 06/16/24 16:29 Not Given Minimed DAILY TRISTON Dextrose 25 ml 05/19/24 08:36 Dextrose 50%-Water Inj 50 Ml Syringe IV 06/18/24 08:35 Q15MIN PRN BG 50-70 responsive npo pt Dextrose 50 ml 05/19/24 08:36 Dextrose 50%-Water Inj 50 Ml Syringe IV 06/18/24 08:35 Q15MIN PRN BG <50 OR BG <70 & pt unresponsive Docusate Sodium 100 mg 05/20/24 21:00 05/25/24 09:01 Docusate Sod 100 Mg Capsule PO 06/19/24 20:59 100 mg BID TRISTON Administration Protocol Gabapentin 100 mg 05/17/24 22:00 05/25/24 06:00 Gabapentin 100 Mg Capsule PO 06/16/24 21:59 100 mg TID TRISTON Administration Glucagon 1 mg 05/17/24 15:35 Glucagon Inj 1 Mg Vial IM Q15MIN PRN BG <70, and no IV access Heparin Sodium (Porcine) 5,000 unit 05/18/24 21:00 05/25/24 09:08 Heparin Sod Inj 5000 Unit/Ml Vial SC 05/31/24 15:44 5,000 unit Q12HR TRISTON Administration Ceftriaxone Sodium 2 gm/ 50 mls @ 100 mls/hr 05/22/24 09:00 05/25/24 09:01 Sodium Chloride IV 05/29/24 08:59 100 mls/hr QDAY TRISTON Administration Levofloxacin/Dextrose 500 mg in 100 mls @ 100 mls/hr 05/23/24 11:00 05/25/24 09:02 Levaquin Ivpb IV 05/30/24 10:59 100 mls/hr QDAY TRISTON Administration Sodium Chloride 1,000 mls @ 100 mls/hr 05/25/24 11:11 Ns IV 05/26/24 07:10 .Q10H [facility] Insulin Human Lispro 0 unit 05/20/24 15:52 05/25/24 12:16 Insulin Lispro (Admelog) 1 Unit/0.01 Ml Unit SC 06/18/24 17:59 Not Given Q6HR [facility] Protocol Methadone HCl 65 mg 05/24/24 09:00 05/25/24 09:02 Methadone Solution 1 Mg/1 Ml PO 05/29/24 08:59 65 mg QDAY [facility] Administration Protocol Metoclopramide HCl 5 mg 05/19/24 14:00 05/25/24 06:00 Metoclopramide Inj 5 Mg/Ml Vial 2 Ml IVP 06/18/24 13:59 5 mg Q8HR TRISTON Administration Protocol Morphine Sulfate 2 mg 05/24/24 13:42 Morphine Sulf Inj 10 Mg/Ml Vial IVP 05/29/24 13:41 Q4HR PRN BREAKTHROUGH PAIN Ondansetron HCl 4 mg 05/18/24 01:49 05/19/24 00:01 Ondansetron Inj 2 Mg/Ml Inj 2 Ml IV 06/17/24 01:48 4 mg Q6HR PRN Administration NAUSEA OR VOMITING Protocol Pantoprazole Sodium 40 mg 05/18/24 14:00 05/25/24 09:01 Pantoprazole Inj 40 Mg Vial IV 06/17/24 13:59 40 mg QDAY TRISTON Administration Polyethylene Glycol 17 gm 05/18/24 13:55 05/25/24 09:00 Polyethylene Glycol 17 Gm Packet PO 06/17/24 13:54 17 gm QDAY TRISTON Administration Sennosides 1 tab 05/18/24 14:00 05/25/24 09:01 Senna Tablet PO 06/17/24 13:59 1 tab QDAY TRISTON Administration Protocol Tramadol HCl 50 mg 05/22/24 15:41 05/24/24 06:35 Tramadol Hcl 50 Mg Tablet PO 05/27/24 15:40 50 mg Q6HR PRN Administration Pain 4-7 Zinc Sulfate 220 mg 05/21/24 09:00 05/25/24 09:01 Zinc Sulfate 220 Mg Capsule PO 06/20/24 08:59 220 mg QDAY TRISTON Administration Plan Mr. Muhammad is a 58-year-old male with past medical history of diabetes mellitus, hypertension, hyperlipidemia, chronic pain and IV heroin drug (currently on methadone) use who presented to [facility] with a chief complaint of right leg swelling and tenderness. Patient admitted for osteomyelitis right foot, possible surgical intervention with below knee amputation. At this time, pt refuses to see some team members at this time due to not wanting to discuss plan other than with the primary doctor. 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 Saucedo, pt will not need cardiac clearance, which was also voiced by general surgery, Dr. Epperson as well the attending physician, Dr. Giron. Pt to get BKA on Sunday Wound culture from procedure showed group b strep, resistant to clindamycin, sensitive to Rocephin WBC count 24 today, has been increasing, likely secondary due to amputation, pt has not spiked a fever Plan: -Continue Rocephin 2g IV daily -Levaquin 500 mg IV daily -BC NG2D -Surgery consult appreciate recs -Multimodal pain control including tramadol, Tylenol, methadone. 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 Holding lisinopril 2.5 in setting of PADDY ?Keep mag and potassium above 2 and 4 respectively #Acute kidney injury, improving #PADDY on CKD Patient presented with BUN 59, creatinine 3.8 and GFR 17, baseline unknown Creatinine 1.5 today, compared to 1.2 yesterday Patient likely will have some form of CKD moving forward, we will have to establish baseline in the coming days Plan: ?*Restarted fluids 2 bags, 100 cc an hour of NS ?Held lisinopril in setting of PADDY -Nephrology consulted in ED, appreciate recommendations -Avoid nephrotoxic agents -Renally dose medications ?As above #Constipation Multifactorial: Likely due to immobilization and narcotic Patient has got Colace, MiraLAX, senna and has failed Plan: ?*Fleet enema #Diabetes mellitus, insulin-dependent A1c of 8.3 Patient's blood sugars have not been controlled, have been in the 200s, will adjust management as patient currently uses insulin pump Will adjust insulin units throughout admission Insulin pump was removed initially because sugars weren't controlled and then was put on basal and SSI, as per family, pt was removing pump by himself w/o notifying nurses and providers Sugars continued to elevate overnight, sugars reaching 400s Family wants to use insulin pump and said they will put his insulin pump by themselves if his blood sugar continues to be above 300 We explained to them that the plan is to control his blood sugar and we want to know how to control his blood sugar in predictable fashion and putting the insulin pump without notifiying the provider can put patient at risk for hypoglycemia and further complications Family will continue to use insulin pump, we gave 40 units lispro yesterday since patient's sugar was up in the 400s Informed risk and benefits with patient and family in regards to the using the insulin pump instead of us managing insulin primarily, however they insist on using insulin pump in the hospital and us giving some bolus. We highly recommended patient to follow-up with ob/gyn physician outpatient as patient has PCP managing insulin pump Plan: -SSI sensitive ?Patient to continue using insulin pump -Glucose checks ACHS -Carb consistent low diet #Hypertension #Hyperlipidemia -Blood pressure soft, patient on metoprolol tartrate 50 twice daily, lisinopril 40 daily and hydrochlorothiazide 25 daily at home will hold. -Hold lisinopril and hydrochlorothiazide due to PADDY -Continue home dose atorvastatin 10 at bedtime -Lisinopril and Coreg as above #Chronic pain #History of IV drug use #Methadone dependence #Chronic hep C Patient has had he has had a history of chronic hep C for a while now, has gone for 3-month treatment in the past but is stable right now Hep C IgG positive Plan: -Resumed gabapentin 100 3 times daily ?Resume home methadone 65 mg #Electrolyte imbalances #Hypomagnesemia -Replete as needed #Health Maintenance Disposition: Med telemetry DVT prophylaxis: Heparin GI prophylaxis: None Diet: Carb consistent low, renal, cardiac CODE STATUS: Full Patient seen and care discussed with my senior resident, Dr. Hernandez , and my attending physician, Dr. Rod Diamond, PGY-1 Attending Provider Attestation/Addendum 58-year-old male with multiple comorbidities including hypertension, hyperlipidemia, type 2 diabetes mellitus on insulin and chronic pain syndrome on methadone who presented to the ER on 05/17/2024 with right leg swelling found to have osteomyelitis and subsequently underwent right BKA. During course of hospitalization, patient underwent echocardiogram with findings of heart failure with reduced EF with EF 40% and possible mass/vegetation on the tricuspid valve and subsequently plan was to do CAT however patient refused. In addition, plan was to obtain a PICC line for IV antibiotic therapy however patient's and patient himself refused stating that they would rather do p.o. antibiotic therapy for 6 weeks until they get their CAT as outpatient. Counseled him regarding need for IV antibiotic therapy given that there is a concern for endocarditis and explained to them the risk of worsening disease progression which can lead to cardiac arrest and . They understand and would like to proceed with p.o. antibiotic therapy despite extensive counseling. Awaiting general surgery inputs. I reviewed above note and agree with findings and plans. I have also personally examined the patient with medicine team and went over assessment and plan with medical team including biomedical engineering internship and resident physician.
[2024-05-25] MEDS: SODIUM CHLORIDE 0.9% 1000 ML 1,000 ML 100 ML IV (12:44)
[2024-05-25] MEDS: [UNRECOGNIZED DRUG - OTHER] IRRIG (17:14)
--- NOTE | 2024-05-25 19:48 | PC.NURSE ---
Called Monik Irene regarding patient's IV not functioning. Patient has ordered 2 bags of NS total 2000 mL. Called for US IV. Hold fluids for now, resume when patient has IV access per MD.
--- NOTE | 2024-05-25 20:55 | PC.NURSE ---
patient and family at bedside only want to use US to attempt IV access as patient does not want to be poked a lot of times . Patient states they used an ultrasound machine when they inserted his IV.
[2024-05-25] MEDS: ATORVASTATIN CALCIUM 10 MG TABLET PO (21:29)
[2024-05-26] VITALS (11 sets, daily range): BP systolic 107–134; BP diastolic 48–68; PULSE 64–81; RESP 16–19; TEMP 36–36.5; O2SAT 91–98
--- NOTE | 2024-05-26 01:37 | PC.NURSE ---
called Dr. Curran, since patient does not have a functioning IV access, unable to administer 2nd bag ordered of normal saline, okayed to non-admin.
[2024-05-26] MEDS: GABAPENTIN 100 MG CAPSULE PO ×3 (06:03→21:32)
[2024-05-26 06:07] LABS: Basophils # (Auto) 0.1 Thou/mm3 (0.0-0.2); Basophils % (Auto) 1 % (0-2.5); Eosinophils # (Auto) 0.3 Thou/mm3 (0.0-0.5); Eosinophils % (Auto) 1 % (0-10); Hematocrit 35.4 % (41.0-53.0); Hemoglobin 11.1 g/dL (13.5-16.0); Immature Granulocytes % (Auto) 5 % (0-0); Immature Granulocytes Auto 1.06 Thou/mm3 (0.00-0.00); Lymphocytes # (Auto) 3.8 Thou/mm3 (1.0-4.8); Lymphocytes % (Auto) 19 % (10-50); Mean Corpuscular HGB Conc 31.4 g/dl (31.0-37.0); Mean Corpuscular Hemoglobin 23.2 pg (25.0-35.0); Mean Corpuscular Volume 74 fL (80-100); Monocytes # (Auto) 0.7 Thou/mm3 (0.0-0.8); Monocytes % (Auto) 3 % (0-12); Neutrophils % (Auto) 70 % (37-80); Nucleated Red Blood Cell % 0 /100 WBC (0); Platelet Count 480 Thou/mm3 (140-440); RDW Standard Deviation 40.3 fL (35.1-43.9); Red Blood Count 4.78 Miln/mm3 (4.50-5.90); White Blood Count 19.8 Thou/mm3 (3.8-10.6)
[2024-05-26 06:43] LABS: Alanine Aminotransferase 24 U/L (10-49); Albumin, Serum 5.3 gm/dL (3.5-5.0); Alkaline Phosphatase 260 U/L (46-116); Anion Gap 11 (7-16); Aspartate Amino Transferase 16 U/L (0-34); BUN/Creatinine Ratio 21 Ratio (12-20); Bilirubin,Total 0.3 mg/dL (0.3-1.2); Blood Urea Nitrogen 35 mg/dL (9-23); Calcium 10.3 mg/dL (8.3-10.6); Calcium (Corrected) 10.3 mg/dL (8.5-10.1); Carbon Dioxide 16.6 mMol/L (20.0-31.0); Chloride 104 mMol/L (98-107); Creatinine (Component) 1.7 mg/dL (0.6-1.3); Globulin 5.3 gm/dL (2.3-3.5); Glucose 120 mg/dL (74-106); Osmolality,Calculated 273 (275-295); Potassium 4.8 mMol/L (3.4-5.1); Sodium 132 mMol/L (136-145); Total Protein 10.6 gm/dL (5.7-8.2); eGFR 46 See Note
[2024-05-26] MEDS: carVEDILOL 3.125 MG TABLET 6.25 MG PO ×2 (08:06→17:28)
[2024-05-26] MEDS: ASCORBIC ACID 250 MG TABLET 500 MG PO ×2 (08:06→20:25)
[2024-05-26] MEDS: ZINC SULFATE 220 MG CAPSULE PO (08:06)
[2024-05-26] MEDS: SENNA TABLET 1 TAB PO (08:07)
[2024-05-26] MEDS: POLYETHYLENE GLYCOL 17 GM PACKET PO (08:07)
[2024-05-26] MEDS: METHADONE SOLUTION 1 MG/1 ML 65 MG PO (08:07)
[2024-05-26] MEDS: DOCUSATE SOD 100 MG CAPSULE PO ×2 (08:07→20:25)
[2024-05-26] MEDS: cefTRIAXone 2 GM in SODIUM CHLORIDE 0.9% (P) 50 ML IV (08:08)
[2024-05-26] MEDS: [UNRECOGNIZED DRUG - OTHER] IRRIG (08:08)
[2024-05-26] MEDS: PANTOPRAZOLE INJ 40 MG VIAL IV (08:08)
[2024-05-26] MEDS: LEVOFLOXACIN/D5W 500 MG IVPB 500 MG/100 ML BAG 100 MG IV (08:08)
[2024-05-26] MEDS: HEPARIN SOD INJ 5000 UNIT/ML VIAL SC (08:15)
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
--- NOTE | 2024-05-26 08:56 | PC.SS ---
Follow up note: Waiting for surgery Sunday with Dr. Epperson for 2nd phase of the amputation.
--- NOTE | 2024-05-26 11:30 | PC.SS ---
Addendum entered by Nalini Isaacs 05/26/24 12:08: SS has sent inquiry to the local SNF using [employer]. Original Note: SS met with pt and regarding d/c plan to home or SNF. states she is open for pt to go to SNF pending how pt does with PT (pt has to be able to go to restroom without her assistance). PASRR assessment has been completed. Pt and are both agreeable for SS to send inquiry to the local SNF.
[2024-05-26] MEDS: METOCLOPRAMIDE INJ 5 MG/ML VIAL 2 ML IVP ×2 (13:45→20:31)
--- NOTE | 2024-05-26 14:58 | PC.PT ---
Attempt to initiate PT evaluation, Patient states he was able to stand up and did a couple of steps with the walker with his earlier. Will hold PT evaluation and see the patient again post R BKA. Patient verbalized understanding. Nurse made aware.
--- NOTE | 2024-05-26 15:28 | PD.RESPRO ---
Documentation for date of: 05/26/24 Subjective Subjective Interval history: Patient examined at bedside today. No acute overnight events. Presents feeling good, has been working out his legs and moving around. Has a bowel movement yesterday and today. Wondering at what time surgery is tomorrow. No other complaints at this time. Exam Vital Signs Temp Pulse Resp BP Pulse Ox O2 Del Method O2 Flow Rate 97.0 F 64 18 126/68 97 Room Air 1 05/26/24 12:00 05/26/24 12:00 05/26/24 12:00 05/26/24 12:00 05/26/24 12:00 05/26/24 12:00 05/24/24 04:00 Narrative Exam General: AAOx3, NAD, HEENT: Moist mucous membranes, conjunctiva clear, EOMI, PERRLA, Cardiovascular: S1, S2, radial pulses +2 bilat, RRR Pulmonary: CTAB bilat no cough, no wheezing GI: No tenderness to light or deep palpitation, no guarding, rigidity, rebound tenderness or distension Extremities: Various skin changes in the lower extremities, more so right lower extremity, with various stages of healing, R foot s/p guillotine amputation with bandage, left dorsalis pedis pulse +2 Neuro: AAOx3, no focal motor or sensory deficits in the UE or LE bilat Psych: Cooperative Objective Labs 05/26/24 05:54 05/26/24 05:54 Labs: Laboratory Results - last 24 hr 05/26/24 05:54 WBC 19.8 H RBC 4.78 Hgb 11.1 L D Hct 35.4 L D MCV 74 L MCH 23.2 L MCHC 31.4 RDW Std Deviation 40.3 Plt Count 480 H D Neut % (Auto) 70 Lymph % (Auto) 19 [place] % (Auto) 3 Eos % (Auto) 1 Baso % (Auto) 1 Neut # (Auto) 14.0 H Lymph # (Auto) 3.8 [place] # (Auto) 0.7 Eos # (Auto) 0.3 Baso # (Auto) 0.1 Immature Gran # (Auto) 1.06 H Absolute Nucleated RBC 0.00 Immature Gran % 5 H Nucleated RBC % 0 Sodium 132 L Potassium 4.8 Chloride 104 Carbon Dioxide 16.6 L Anion Gap 11 BUN 35 H Creatinine 1.7 H Estim Creat Clear Calc 60.0 L eGFR 46 L BUN/Creatinine Ratio 21 H Glucose 120 H Calculated Osmolality 273 L Calcium 10.3 D Corrected Calcium 10.3 H D Total Bilirubin 0.3 AST 16 ALT 24 Alkaline Phosphatase 260 H D Total Protein 10.6 H Albumin 5.3 H D Globulin 5.3 H Albumin/Globulin Ratio 1.0 L Quality Measures Quality Measures VTE prophylaxis (Heparin) Assessment & Plan Assessment Current Active Medications: Generic Name Dose Route Start Last Admin Trade Name Freq PRN Reason Stop Dose Admin Acetaminophen 650 mg 05/17/24 15:35 05/24/24 20:09 Acetaminophen 325 Mg Tablet PO 06/16/24 15:34 650 mg Q6H PRN Administration Pain (1-3) and Fever >101.5 Ascorbic Acid 500 mg 05/20/24 21:00 05/26/24 08:06 Ascorbic Acid 250 Mg Tablet PO 06/19/24 20:59 500 mg BID TRISTON Administration Atorvastatin Calcium 10 mg 05/17/24 21:00 05/25/24 21:29 Atorvastatin Calcium 10 Mg Tablet PO 06/16/24 20:59 10 mg HS TRISTON Administration Carvedilol 6.25 mg 05/22/24 17:30 05/26/24 08:06 Carvedilol 3.125 Mg Tablet PO 06/21/24 17:29 6.25 mg BIDWM TRISTON Administration Patients Own Insulin 0 ea 05/17/24 16:33 05/26/24 08:32 Pump-Medtronic SC 06/16/24 16:29 Not Given Minimed DAILY TRISTON Dextrose 25 ml 05/19/24 08:36 Dextrose 50%-Water Inj 50 Ml Syringe IV 06/18/24 08:35 Q15MIN PRN BG 50-70 responsive npo pt Dextrose 50 ml 05/19/24 08:36 Dextrose 50%-Water Inj 50 Ml Syringe IV 06/18/24 08:35 Q15MIN PRN BG <50 OR BG <70 & pt unresponsive Docusate Sodium 100 mg 05/20/24 21:00 05/26/24 08:07 Docusate Sod 100 Mg Capsule PO 06/19/24 20:59 100 mg BID TRISTON Administration Protocol Gabapentin 100 mg 05/17/24 22:00 05/26/24 13:45 Gabapentin 100 Mg Capsule PO 06/16/24 21:59 100 mg TID TRISTON Administration Glucagon 1 mg 05/17/24 15:35 Glucagon Inj 1 Mg Vial IM Q15MIN PRN BG <70, and no IV access Heparin Sodium (Porcine) 5,000 unit 05/18/24 21:00 05/26/24 08:15 Heparin Sod Inj 5000 Unit/Ml Vial SC 05/31/24 15:44 5,000 unit Q12HR TRISTON Administration Ceftriaxone Sodium 2 gm/ 50 mls @ 100 mls/hr 05/22/24 09:00 05/26/24 08:08 Sodium Chloride IV 05/29/24 08:59 100 mls/hr QDAY TRISTON Administration Levofloxacin/Dextrose 500 mg in 100 mls @ 100 mls/hr 05/23/24 11:00 05/26/24 08:08 Levaquin Ivpb IV 05/30/24 10:59 100 mls/hr QDAY TRISTON Administration Insulin Human Lispro 0 unit 05/20/24 15:52 05/26/24 13:44 Insulin Lispro (Admelog) 1 Unit/0.01 Ml Unit SC 06/18/24 17:59 Not Given Q6HR TRISTON Protocol Methadone HCl 65 mg 05/24/24 09:00 05/26/24 08:07 Methadone Solution 1 Mg/1 Ml PO 05/29/24 08:59 65 mg QDAY TRISTON Administration Protocol Metoclopramide HCl 5 mg 05/19/24 14:00 05/26/24 13:45 Metoclopramide Inj 5 Mg/Ml Vial 2 Ml IVP 06/18/24 13:59 5 mg Q8HR TRISTON Administration Protocol Morphine Sulfate 2 mg 05/24/24 13:42 Morphine Sulf Inj 10 Mg/Ml Vial IVP 05/29/24 13:41 Q4HR PRN BREAKTHROUGH PAIN Ondansetron HCl 4 mg 05/18/24 01:49 05/19/24 00:01 Ondansetron Inj 2 Mg/Ml Inj 2 Ml IV 06/17/24 01:48 4 mg Q6HR PRN Administration NAUSEA OR VOMITING Protocol Pantoprazole Sodium 40 mg 05/18/24 14:00 05/26/24 08:08 Pantoprazole Inj 40 Mg Vial IV 06/17/24 13:59 40 mg QDAY TRISTON Administration Polyethylene Glycol 17 gm 05/18/24 13:55 05/26/24 08:07 Polyethylene Glycol 17 Gm Packet PO 06/17/24 13:54 17 gm QDAY TRISTON Administration Sennosides 1 tab 05/18/24 14:00 05/26/24 08:07 Senna Tablet PO 06/17/24 13:59 1 tab QDAY TRISTON Administration Protocol Sodium Hypochlorite 473 ml 05/25/24 15:15 05/26/24 08:08 Sod Hypochlorite Full Str 473 Ml Btl IRRIG 06/24/24 15:14 473 ml QDAY TRISTON Administration Tramadol HCl 50 mg 05/22/24 15:41 05/24/24 06:35 Tramadol Hcl 50 Mg Tablet PO 05/27/24 15:40 50 mg Q6HR PRN Administration Pain 4-7 Zinc Sulfate 220 mg 05/21/24 09:00 05/26/24 08:06 Zinc Sulfate 220 Mg Capsule PO 06/20/24 08:59 220 mg QDAY TRISTON Administration Plan Mr. Muhammad is a 58-year-old male with past medical history of diabetes mellitus, hypertension, hyperlipidemia, chronic pain and IV heroin drug (currently on methadone) use who presented to [facility], [place] with a chief complaint of right leg swelling and tenderness. Patient admitted for osteomyelitis right foot, possible surgical intervention with below knee amputation. At this time, pt refuses to see some team members at this time due to not wanting to discuss plan other than with the primary doctor. 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 Saucedo, pt will not need cardiac clearance, which was also voiced by general surgery, Dr. Epperson as well the attending physician, Dr. Giron. Pt to get BKA on Sunday05/26/2024 Wound culture from procedure showed group b strep, resistant to clindamycin, sensitive to Rocephin WBC count ~20 today, has been increasing, likely secondary due to amputation, pt has not spiked a fever Surgery tomorrow Plan: -Continue Rocephin 2g IV daily -Levaquin 500 mg IV daily -BC NG2D -Surgery consult appreciate recs -Multimodal pain control including tramadol, Tylenol, methadone. 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 Echocardiogram shows possible vegetation on valves, recommend for CAT follow-up Patient has history of drug use but has not used in a while per patient Blood cultures: Negative for growth after 48 hours Echo: EF of 40, systolic dysfunction and wall motion abnormalities At this time, patient refuses CAT, will do as outpatient only Will titrate Coreg as needed Plan: ?Blood cultures no growth after 2 days ?ID on consult, appreciate recs ?Continue with Rocephin and Levaquin ?Cardiology on consult, appreciate recs ?Continue Coreg to 6.25 ? Holding lisinopril 2.5 in setting of PADDY ?Keep mag and potassium above 2 and 4 respectively #Acute kidney injury, improving #PADDY on CKD Patient presented with BUN 59, creatinine 3.8 and GFR 17, baseline unknown Creatinine 1.7 today, compared to 1.5 yesterday; HCO3- 16 Patient likely will have some form of CKD moving forward, we will have to establish baseline in the coming days Plan: -NS 500 x1 bag 80 cc/hr -Sodium Bicarb 250 tab x1 ?Held lisinopril in setting of PADDY -Nephrology consulted in ED, appreciate recommendations -Avoid nephrotoxic agents -Renally dose medications ?As above #Constipation Multifactorial: Likely due to immobilization and narcotic Patient has got Colace, MiraLAX, senna and has failed Plan: Stable #Diabetes mellitus, insulin-dependent A1c of 8.3 Patient's blood sugars have not been controlled, have been in the 200s, will adjust management as patient currently uses insulin pump Will adjust insulin units throughout admission Insulin pump was removed initially because sugars weren't controlled and then was put on basal and SSI, as per family, pt was removing pump by himself w/o notifying nurses and providers Sugars continued to elevate overnight, sugars reaching 400s Family wants to use insulin pump and said they will put his insulin pump by themselves if his blood sugar continues to be above 300 We explained to them that the plan is to control his blood sugar and we want to know how to control his blood sugar in predictable fashion and putting the insulin pump without notifiying the provider can put patient at risk for hypoglycemia and further complications Family will continue to use insulin pump, we gave 40 units lispro yesterday since patient's sugar was up in the 400s Informed risk and benefits with patient and family in regards to the using the insulin pump instead of us managing insulin primarily, however they insist on using insulin pump in the hospital and us giving some bolus. We highly recommended patient to follow-up with burr bench operator outpatient as patient has PCP managing insulin pump Plan: -SSI sensitive ?Patient to continue using insulin pump -Glucose checks ACHS -Carb consistent low diet #Hypertension #Hyperlipidemia -Blood pressure soft, patient on metoprolol tartrate 50 twice daily, lisinopril 40 daily and hydrochlorothiazide 25 daily at home will hold. -Hold lisinopril and hydrochlorothiazide due to PADDY -Continue home dose atorvastatin 10 at bedtime -Lisinopril and Coreg as above #Chronic pain #History of IV drug use #Methadone dependence #Chronic hep C Patient has had he has had a history of chronic hep C for a while now, has gone for 3-month treatment in the past but is stable right now Hep C IgG positive Plan: -Resumed gabapentin 100 3 times daily ?Resume home methadone 65 mg #Electrolyte imbalances #Hypomagnesemia -Replete as needed #Health Maintenance Disposition: Med telemetry DVT prophylaxis: Heparin GI prophylaxis: None Diet: Carb consistent low, renal, cardiac CODE STATUS: Full Patient seen and care discussed with my attending physician, Dr. Kelby Diamond, PGY-1 Attending Provider Attestation/Addendum Eliza Barth DO, attest that I was physically present for the rodriguez portions of the service and evaluated the patient with the resident and I reviewed and discussed the case with the resident and agree with the resident's findings and plans of care as documented above Patient seen and evaluated this AM. He has no active complaints. Patient has been able to sit up in bed and do bed exercises. Patient is scheduled for BKA tomorrow. NPO after midnight
[2024-05-26] MEDS: SODIUM CHLORIDE 0.9% 500 ML 500 ML 80 ML IV (18:11)
[2024-05-26] MEDS: SODIUM BICARBONATE 650 MG TABLET 325 MG PO (18:11)
[2024-05-26] MEDS: ATORVASTATIN CALCIUM 10 MG TABLET PO (20:25)
[2024-05-27] VITALS (20 sets, daily range): BP systolic 100–153; BP diastolic 48–84; PULSE 73–98; RESP 13–97; TEMP 36–36.8; O2SAT 96–100; BMI 32.9
[2024-05-27] MEDS: METOCLOPRAMIDE INJ 5 MG/ML VIAL 2 ML IVP ×3 (05:50→21:22)
[2024-05-27 08:16] LABS: Basophils # (Auto) 0.1 Thou/mm3 (0.0-0.2); Basophils % (Auto) 0 % (0-2.5); Eosinophils # (Auto) 0.2 Thou/mm3 (0.0-0.5); Eosinophils % (Auto) 1 % (0-10); Immature Granulocytes % (Auto) 3 % (0-0); Immature Granulocytes Auto 0.37 Thou/mm3 (0.00-0.00); Lymphocytes # (Auto) 2.2 Thou/mm3 (1.0-4.8); Lymphocytes % (Auto) 16 % (10-50); Mean Corpuscular HGB Conc 30.8 g/dl (31.0-37.0); Mean Corpuscular Volume 75 fL (80-100); Monocytes # (Auto) 0.8 Thou/mm3 (0.0-0.8); Monocytes % (Auto) 6 % (0-12); Neutrophils # (Auto) 10.3 Thou/mm3 (1.8-7.7); Neutrophils % (Auto) 74 % (37-80); Nucleated Red Blood Cell % 0 /100 WBC (0); Platelet Count 703 Thou/mm3 (140-440); Red Blood Count 3.35 Miln/mm3 (4.50-5.90); White Blood Count 13.9 Thou/mm3 (3.8-10.6)
[2024-05-27 08:43] LABS: Alanine Aminotransferase 20 U/L (10-49); Albumin, Serum 3.8 gm/dL (3.5-5.0); Albumin/Globulin Ratio 0.8 (1.2-2.2); Alkaline Phosphatase 172 U/L (46-116); Anion Gap 9 (7-16); Aspartate Amino Transferase 22 U/L (0-34); BUN/Creatinine Ratio 22 Ratio (12-20); Bilirubin,Total 0.2 mg/dL (0.3-1.2); Blood Urea Nitrogen 33 mg/dL (9-23); Calcium 9.6 mg/dL (8.3-10.6); Calcium (Corrected) 9.8 mg/dL (8.5-10.1); Carbon Dioxide 18.9 mMol/L (20.0-31.0); Chloride 111 mMol/L (98-107); Creatinine (Component) 1.5 mg/dL (0.6-1.3); Globulin 4.5 gm/dL (2.3-3.5); Glucose 111 mg/dL (74-106); Magnesium 1.8 mg/dL (1.6-2.6); Osmolality,Calculated 285 (275-295); Phosphorous 4.2 mg/dL (2.4-5.1); Potassium 4.6 mMol/L (3.4-5.1); Sodium 139 mMol/L (136-145); Total Protein 8.3 gm/dL (5.7-8.2); eGFR 53 See Note
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
[2024-05-27 08:48] LABS: Hemoglobin 7.7 g/dL (13.5-16.0)
[2024-05-27] MEDS: carVEDILOL 3.125 MG TABLET 6.25 MG PO ×2 (08:51→17:58)
[2024-05-27] MEDS: cefTRIAXone 2 GM in SODIUM CHLORIDE 0.9% (P) 50 ML IV (08:52)
[2024-05-27] MEDS: PANTOPRAZOLE INJ 40 MG VIAL IV (08:52)
[2024-05-27] MEDS: METHADONE SOLUTION 1 MG/1 ML 65 MG PO (09:15)
[2024-05-27] MEDS: LEVOFLOXACIN/D5W 500 MG IVPB 500 MG/100 ML BAG 100 MG IV (09:38)
--- NOTE | 2024-05-27 14:00 | PD.RESPRO ---
Documentation for date of: 05/27/24 Subjective Subjective Interval history: Patient examined at bedside today. No acute overnight events. Says that he rubbed his left leg. Against his bed and bothers him slightly. He is ready for surgery today. No other complaints at this time Exam Vital Signs Temp Pulse Resp BP Pulse Ox O2 Del Method O2 Flow Rate 98.0 F 73 18 100/56 L 97 Room Air 1 05/27/24 11:51 05/27/24 13:39 05/27/24 11:51 05/27/24 11:51 05/27/24 11:51 05/27/24 11:51 05/24/24 04:00 Narrative Exam General: AAOx3, NAD, HEENT: Moist mucous membranes, conjunctiva clear, EOMI, PERRLA, Cardiovascular: S1, S2, radial pulses +2 bilat, RRR Pulmonary: CTAB bilat no cough, no wheezing GI: No tenderness to light or deep palpitation, no guarding, rigidity, rebound tenderness or distension Extremities: Various skin changes in the lower extremities, more so right lower extremity, with various stages of healing, R foot s/p guillotine amputation with bandage, left dorsalis pedis pulse +2, L heel has bandage, slightly erythematous superficial skin tear Neuro: AAOx3, no focal motor or sensory deficits in the UE or LE bilat Psych: Cooperative Objective Labs 05/30/24 05:33 05/30/24 05:33 Labs: Laboratory Results - last 24 hr 05/27/24 07:35 WBC 13.9 H D RBC 3.35 L Hgb 7.7 L D Hct 25.0 L D MCV 75 L MCH 23.0 L MCHC 30.8 L RDW Std Deviation 42.0 Plt Count 703 H D Neut % (Auto) 74 Lymph % (Auto) 16 Baca % (Auto) 6 Eos % (Auto) 1 Baso % (Auto) 0 Neut # (Auto) 10.3 H Lymph # (Auto) 2.2 Baca # (Auto) 0.8 Eos # (Auto) 0.2 Baso # (Auto) 0.1 Immature Gran # (Auto) 0.37 H Absolute Nucleated RBC 0.00 Immature Gran % 3 H Nucleated RBC % 0 Sodium 139 Potassium 4.6 Chloride 111 H Carbon Dioxide 18.9 L Anion Gap 9 BUN 33 H Creatinine 1.5 H Estim Creat Clear Calc 68.0 eGFR 53 L BUN/Creatinine Ratio 22 H Glucose 111 H Calculated Osmolality 285 Calcium 9.6 Corrected Calcium 9.8 Phosphorus 4.2 Magnesium 1.8 Total Bilirubin 0.2 L AST 22 ALT 20 Alkaline Phosphatase 172 H D Total Protein 8.3 H Albumin 3.8 D Globulin 4.5 H Albumin/Globulin Ratio 0.8 L Quality Measures Quality Measures VTE prophylaxis (Heparin) Assessment & Plan Assessment Current Active Medications: Generic Name Dose Route Start Last Admin Trade Name Freq PRN Reason Stop Dose Admin Acetaminophen 650 mg 05/17/24 15:35 05/24/24 20:09 Acetaminophen 325 Mg Tablet PO 06/16/24 15:34 650 mg Q6H PRN Administration Pain (1-3) and Fever >101.5 Ascorbic Acid 500 mg 05/20/24 21:00 05/26/24 20:25 Ascorbic Acid 250 Mg Tablet PO 06/19/24 20:59 500 mg BID TRISTON Administration Atorvastatin Calcium 10 mg 05/17/24 21:00 05/26/24 20:25 Atorvastatin Calcium 10 Mg Tablet PO 06/16/24 20:59 10 mg HS TRISTON Administration Carvedilol 6.25 mg 05/22/24 17:30 05/27/24 08:51 Carvedilol 3.125 Mg Tablet PO 06/21/24 17:29 6.25 mg BIDWM TRISTON Administration Patients Own Insulin 0 ea 05/17/24 16:33 05/26/24 08:32 Pump-Medtronic SC 06/16/24 16:29 Not Given Minimed DAILY TRISTON Dextrose 25 ml 05/19/24 08:36 Dextrose 50%-Water Inj 50 Ml Syringe IV 06/18/24 08:35 Q15MIN PRN BG 50-70 responsive npo pt Dextrose 50 ml 05/19/24 08:36 Dextrose 50%-Water Inj 50 Ml Syringe IV 06/18/24 08:35 Q15MIN PRN BG <50 OR BG <70 & pt unresponsive Docusate Sodium 100 mg 05/20/24 21:00 05/26/24 20:25 Docusate Sod 100 Mg Capsule PO 06/19/24 20:59 100 mg BID TRISTON Administration Protocol Gabapentin 100 mg 05/17/24 22:00 05/27/24 08:50 Gabapentin 100 Mg Capsule PO 06/16/24 21:59 Not Given TID TRISTON Glucagon 1 mg 05/17/24 15:35 Glucagon Inj 1 Mg Vial IM Q15MIN PRN BG <70, and no IV access Heparin Sodium (Porcine) 5,000 unit 05/18/24 21:00 05/27/24 12:39 Heparin Sod Inj 5000 Unit/Ml Vial SC 05/31/24 15:44 Not Given Q12HR TRISTON Ceftriaxone Sodium 2 gm/ 50 mls @ 100 mls/hr 05/22/24 09:00 05/27/24 08:52 Sodium Chloride IV 05/29/24 08:59 100 mls/hr QDAY TRISTON Administration Levofloxacin/Dextrose 500 mg in 100 mls @ 100 mls/hr 05/23/24 11:00 05/27/24 09:38 Levaquin Ivpb IV 05/30/24 10:59 100 mls/hr QDAY TRISTON Administration Insulin Human Lispro 0 unit 05/20/24 15:52 05/27/24 09:36 Insulin Lispro (Admelog) 1 Unit/0.01 Ml Unit SC 06/18/24 17:59 Not Given Q6HR COUNT INCLUDES [facility] Protocol Methadone HCl 65 mg 05/24/24 09:00 05/27/24 09:15 Methadone Solution 1 Mg/1 Ml PO 05/29/24 08:59 65 mg QDAY COUNT INCLUDES THE [facility] Administration Protocol Metoclopramide HCl 5 mg 05/19/24 14:00 05/27/24 05:50 Metoclopramide Inj 5 Mg/Ml Vial 2 Ml IVP 06/18/24 13:59 5 mg Q8HR TRISTON Administration Protocol Morphine Sulfate 2 mg 05/24/24 13:42 Morphine Sulf Inj 10 Mg/Ml Vial IVP 05/29/24 13:41 Q4HR PRN BREAKTHROUGH PAIN Ondansetron HCl 4 mg 05/18/24 01:49 05/19/24 00:01 Ondansetron Inj 2 Mg/Ml Inj 2 Ml IV 06/17/24 01:48 4 mg Q6HR PRN Administration NAUSEA OR VOMITING Protocol Pantoprazole Sodium 40 mg 05/18/24 14:00 05/27/24 08:52 Pantoprazole Inj 40 Mg Vial IV 06/17/24 13:59 40 mg QDAY TRISTON Administration Polyethylene Glycol 17 gm 05/18/24 13:55 05/26/24 08:07 Polyethylene Glycol 17 Gm Packet PO 06/17/24 13:54 17 gm QDAY TRISTON Administration Sennosides 1 tab 05/18/24 14:00 05/26/24 08:07 Senna Tablet PO 06/17/24 13:59 1 tab QDAY TRISTON Administration Protocol Sodium Hypochlorite 473 ml 05/25/24 15:15 05/26/24 08:08 Sod Hypochlorite Full Str 473 Ml Btl IRRIG 06/24/24 15:14 473 ml QDAY TRISTON Administration Tramadol HCl 50 mg 05/22/24 15:41 05/24/24 06:35 Tramadol Hcl 50 Mg Tablet PO 05/27/24 15:40 50 mg Q6HR PRN Administration Pain 4-7 Zinc Sulfate 220 mg 05/21/24 09:00 05/26/24 08:06 Zinc Sulfate 220 Mg Capsule PO 06/20/24 08:59 220 mg QDAY TRISTON Administration Plan Mr. Muhammad is a 58-year-old male with past medical history of diabetes mellitus, hypertension, hyperlipidemia, chronic pain and IV heroin drug (currently on methadone) use who presented to [facility] with a chief complaint of right leg swelling and tenderness. Patient admitted for osteomyelitis right foot, possible surgical intervention with below knee amputation. At this time, pt refuses to see some team members at this time due to not wanting to discuss plan other than with the primary doctor. 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 Saucedo, pt will not need cardiac clearance, which was also voiced by general surgery, Dr. Epperson as well the attending physician, Dr. Giron. Pt to get BKA on Sunday05/26/2024 Wound culture from procedure showed group b strep, resistant to clindamycin, sensitive to Rocephin WBC count ~13 today, has been increasing, likely secondary due to amputation, pt has not spiked a fever Surgery today Plan: -BKA today by Dr. Epperson -Continue Rocephin 2g IV daily -Levaquin 500 mg IV daily -Blood cultures no growth after two days -Surgery consult appreciate recs -Multimodal pain control including tramadol, Tylenol, methadone. 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 Echocardiogram shows possible vegetation on valves, recommend for CAT follow-up Patient has history of drug use but has not used in a while per patient Blood cultures: Negative for growth after 48 hours Echo: EF of 40, systolic dysfunction and wall motion abnormalities At this time, patient refuses CAT, will do as outpatient only Will titrate Coreg as needed Plan: ?Blood cultures no growth after 2 days ?ID on consult, appreciate recs ?Continue with Rocephin and Levaquin ?Cardiology on consult, appreciate recs ?Continue Coreg to 6.25 ?Holding lisinopril 2.5 in setting of PADDY ?Keep mag and potassium above 2 and 4 respectively #Acute kidney injury, improving #PADDY on CKD Patient presented with BUN 59, creatinine 3.8 and GFR 17, baseline unknown Creatinine 1.5 today, compared to 1.5 yesterday; HCO3- 18 Patient likely will have some form of CKD moving forward, we will have to establish baseline in the coming days Plan: ?Held lisinopril in setting of PADDY -Nephrology consulted in ED, appreciate recommendations -Avoid nephrotoxic agents -Renally dose medications ?As abov #Constipation Multifactorial: Likely due to immobilization and narcotic Patient has got Colace, MiraLAX, senna and has failed Plan: Stable #Diabetes mellitus, insulin-dependent A1c of 8.3 Patient's blood sugars have not been controlled, have been in the 200s, will adjust management as patient currently uses insulin pump Will adjust insulin units throughout admission Insulin pump was removed initially because sugars weren't controlled and then was put on basal and SSI, as per family, pt was removing pump by himself w/o notifying nurses and providers Sugars continued to elevate overnight, sugars reaching 400s Family wants to use insulin pump and said they will put his insulin pump by themselves if his blood sugar continues to be above 300 We explained to them that the plan is to control his blood sugar and we want to know how to control his blood sugar in predictable fashion and putting the insulin pump without notifiying the provider can put patient at risk for hypoglycemia and further complications Family will continue to use insulin pump, we gave 40 units lispro yesterday since patient's sugar was up in the 400s Informed risk and benefits with patient and family in regards to the using the insulin pump instead of us managing insulin primarily, however they insist on using insulin pump in the hospital and us giving some bolus. We highly recommended patient to follow-up with mass spectrometry specialist outpatient as patient has PCP managing insulin pump Plan: -SSI sensitive ?Patient to continue using insulin pump -Glucose checks ACHS -Carb consistent low diet #Thrombocytosis Has been increasing throughout admission, currently at ~700 Plan: ? Trend with CBC #Hypertension #Hyperlipidemia -Blood pressure soft, patient on metoprolol tartrate 50 twice daily, lisinopril 40 daily and hydrochlorothiazide 25 daily at home will hold. -Hold lisinopril and hydrochlorothiazide due to PADDY -Continue home dose atorvastatin 10 at bedtime -Lisinopril and Coreg as above #Chronic pain #History of IV drug use #Methadone dependence #Chronic hep C Patient has had he has had a history of chronic hep C for a while now, has gone for 3-month treatment in the past but is stable right now Hep C IgG positive Plan: -Resumed gabapentin 100 3 times daily ?Resume home methadone 65 mg #Electrolyte imbalances #Hypomagnesemia -Replete as needed #Health Maintenance Disposition: Med telemetry DVT prophylaxis: Heparin GI prophylaxis: None Diet: Carb consistent low, renal, cardiac CODE STATUS: Full Patient seen and care discussed with my attending physician, Dr. Rod Diamond, PGY-1 Attending Provider Attestation/Addendum 58-year-old male with multiple comorbidities including hypertension, hyperlipidemia, type 2 diabetes mellitus on insulin and chronic pain syndrome on methadone who presented to the ER on 05/17/2024 with right leg swelling found to have osteomyelitis and subsequently underwent right BKA. During course of hospitalization, patient underwent echocardiogram with findings of heart failure with reduced EF with EF 40% and possible mass/vegetation on the tricuspid valve and subsequently plan was to do CAT however patient refused. In addition, plan was to obtain a PICC line for IV antibiotic therapy however patient's and patient himself refused stating that they would rather do p.o. antibiotic therapy for 6 weeks until they get their CAT as outpatient. Counseled him regarding need for IV antibiotic therapy given that there is a concern for endocarditis and explained to them the risk of worsening disease progression which can lead to cardiac arrest and . They understand and would like to proceed with p.o. antibiotic therapy despite extensive counseling. Awaiting BKA today I reviewed above note and agree with findings and plans. I have also personally examined the patient with medicine team and went over assessment and plan with medical team including machine learning intern and resident physician.
--- NOTE | 2024-05-27 16:14 | PD.SUROPNT ---
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 Thickening of skin consistent with history of chronic venous hypertension Procedure Description The patient was brought into the operating room in supine position after administration of general endotracheal anesthesia the open wound of right lower extremity was covered with an Ioban then prepped and draped in standard surgical manner. The anterior incision was made approximately 12 cm distal to the tibial tuberosity and the posterior incision was approximately 10 cm distal to the anterior incision. Dissection was carried through the subcutaneous tissue. The compartments of the leg entered. The fascias muscles were divided with electrocautery. Patient was noted to have edema with some inflammatory reaction, however there was no evidence of infection or purulent fluid. Neurovascular bundles were ligated with #0 Vicryl tie. The patient was noted to have patent anterior and posterior tibial arteries. All the muscle compartments were excised. The tibia was divided approximately 5 cm proximal to the anterior incision and the fibula was divided approximately 7 cm proximal to the anterior incision. Wound was copiously and thoroughly washed and irrigated with betadine mixed with peroxide and saline. It was further washed with warm saline. The posterior skin and gastrocnemius muscle were raised anteriorly as a musculocutaneous flap. Posterior fascia was approximated to the anterior fascia with interrupted suture using #0 Vicryl. Hemostasis was adequate and satisfactory. Once the anterior fascia was reapproximated to the posterior fascia, the subcutaneous tissue was closed with interrupted suture using #0 Vicryl and the skin was closed with ashanti. Dry dressing as well as Kerlix was placed over the stump. The patient tolerated the procedure well, he was extubated, breathing spontaneously, and without difficulty, and was transferred to postanesthesia care in stable condition. Instrument, needle, and sponge counts were all reported to be correct x2. Anesthesia GETA Pathology / specimen Other (Distal right leg) Estimated Blood Loss 50 Condition Stable Disposition PACU Surgeon George Epperson MD Surgical Staff Operation Date: 05/27/24 16:45 Case Staff FUSING MACHINE OPERATOR: Leatha Viera RN First Assistant: Sarah Figueroa
--- NOTE | 2024-05-27 16:20 | SUR.PHASEI ---
pt received from OR in recovery bay 7. pt obtunded, breathing unlabored on oxymask 6l, oral airway in place. v/s stable. pt dressing to right lower extremity cdi. report received from Leatha BRAMBILA and Edwar BRITO.
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
[2024-05-27] MEDS: fentaNYL CIT INJ 50 mCg/ML AMP 2ML IV ×4 (16:43→17:11)
--- NOTE | 2024-05-27 17:20 | SUR.PHASEI ---
pt awake and alert, breathing unlabored on room air. v/s stable. pt dressing to right lower extremity cdi. report called to Petra BRITO. pt will be transferred to room at this time.
[2024-05-27] MEDS: MORPHINE SULF INJ 10 MG/ML VIAL 2 MG IVP ×2 (17:41→21:23)
[2024-05-27] MEDS: ACETAMINOPHEN 325 MG TABLET 650 MG PO (17:59)
[2024-05-27] MEDS: ASCORBIC ACID 250 MG TABLET 500 MG PO (20:43)
[2024-05-27] MEDS: ATORVASTATIN CALCIUM 10 MG TABLET PO (20:43)
[2024-05-27] MEDS: DOCUSATE SOD 100 MG CAPSULE PO (20:43)
[2024-05-27] MEDS: GABAPENTIN 100 MG CAPSULE PO (21:22)
[2024-05-28] VITALS (10 sets, daily range): BP systolic 102–124; BP diastolic 56–74; PULSE 72–81; RESP 16–97; TEMP 36–36.6; O2SAT 96–100
[2024-05-28] MEDS: HYDROmorphone INJ 2 MG/ML VIAL 0.25 MG IVP (00:32)
[2024-05-28] MEDS: METOCLOPRAMIDE INJ 5 MG/ML VIAL 2 ML IVP ×3 (05:03→22:30)
[2024-05-28] MEDS: GABAPENTIN 100 MG CAPSULE PO (05:03)
[2024-05-28 06:00] LABS: Basophils # (Auto) 0.1 Thou/mm3 (0.0-0.2); Basophils % (Auto) 0 % (0-2.5); Eosinophils % (Auto) 0 % (0-10); Hematocrit 23.9 % (41.0-53.0); Immature Granulocytes % (Auto) 1 % (0-0); Lymphocytes # (Auto) 1.5 Thou/mm3 (1.0-4.8); Lymphocytes % (Auto) 7 % (10-50); Mean Corpuscular Hemoglobin 23.3 pg (25.0-35.0); Mean Corpuscular Volume 75 fL (80-100); Monocytes # (Auto) 0.7 Thou/mm3 (0.0-0.8); Monocytes % (Auto) 4 % (0-12); Neutrophils # (Auto) 18.2 Thou/mm3 (1.8-7.7); Neutrophils % (Auto) 88 % (37-80); Nucleated Red Blood Cell % 0 /100 WBC (0); Platelet Count 494 Thou/mm3 (140-440); RDW Standard Deviation 44.3 fL (35.1-43.9); Red Blood Count 3.18 Miln/mm3 (4.50-5.90)
[2024-05-28 06:03] LABS: Hemoglobin 7.4 g/dL (13.5-16.0); White Blood Count 20.8 Thou/mm3 (3.8-10.6)
[2024-05-28 06:43] LABS: Alanine Aminotransferase 19 U/L (10-49); Albumin, Serum 4.2 gm/dL (3.5-5.0); Alkaline Phosphatase 166 U/L (46-116); Anion Gap 10 (7-16); BUN/Creatinine Ratio 20 Ratio (12-20); Bilirubin,Total 0.3 mg/dL (0.3-1.2); Blood Urea Nitrogen 28 mg/dL (9-23); Calcium 9.3 mg/dL (8.3-10.6); Calcium (Corrected) 9.3 mg/dL (8.5-10.1); Carbon Dioxide 15.4 mMol/L (20.0-31.0); Chloride 108 mMol/L (98-107); Creatinine (Component) 1.4 mg/dL (0.6-1.3); Estimated Creatinine Clearance 72.8 mL/min (>60); Globulin 4.3 gm/dL (2.3-3.5); Glucose 91 mg/dL (74-106); Magnesium 1.8 mg/dL (1.6-2.6); Osmolality,Calculated 271 (275-295); Phosphorous 4.4 mg/dL (2.4-5.1); Sodium 133 mMol/L (136-145); Total Protein 8.5 gm/dL (5.7-8.2); eGFR 58 See Note
[2024-05-28 06:59] LABS: Aspartate Amino Transferase 29 U/L (0-34)
--- NOTE | 2024-05-28 09:13 | PC.SS ---
Follow up note: Waiting for general surgery recommendations. Pt is on IV antibiotic. Waiting for I.D recommendations.
[2024-05-28] MEDS: PANTOPRAZOLE INJ 40 MG VIAL IV (09:23)
[2024-05-28] MEDS: LEVOFLOXACIN/D5W 500 MG IVPB 500 MG/100 ML BAG 100 MG IV (09:23)
[2024-05-28] MEDS: carVEDILOL 3.125 MG TABLET 6.25 MG PO ×2 (09:24→18:17)
[2024-05-28] MEDS: ZINC SULFATE 220 MG CAPSULE PO (09:24)
[2024-05-28] MEDS: DOCUSATE SOD 100 MG CAPSULE PO ×2 (09:24→20:21)
[2024-05-28] MEDS: POLYETHYLENE GLYCOL 17 GM PACKET PO (09:24)
[2024-05-28] MEDS: cefTRIAXone 2 GM in SODIUM CHLORIDE 0.9% (P) 50 ML IV (09:24)
[2024-05-28] MEDS: METHADONE SOLUTION 1 MG/1 ML 65 MG PO (09:25)
[2024-05-28] MEDS: ASCORBIC ACID 250 MG TABLET 500 MG PO ×2 (09:25→20:20)
[2024-05-28] MEDS: SENNA TABLET 1 TAB PO (09:25)
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
[2024-05-28] MEDS: MORPHINE SULF INJ 10 MG/ML VIAL 2 MG IVP (10:53)
--- NOTE | 2024-05-28 11:31 | PD.SURPROG ---
Documentation for date of: 05/28/24 Subjective Subjective Narrative: Patient is seen and examined. He is resting comfortably. He is complaining of pain at the amputation site, controlled with medication Exam Vital Signs Temp Pulse Resp BP Pulse Ox O2 Del Method O2 Flow Rate 97.3 F 72 21 H 113/61 99 Room Air 3 05/28/24 08:00 05/28/24 09:24 05/28/24 08:00 05/28/24 09:24 05/28/24 08:00 05/28/24 08:00 05/27/24 16:30 Constitutional Constitutional: no acute distress Routine Extremities Exam Comments: Right BKA stump with dressings clean, dry and intact Assessment & Plan Assessment Additional comments: Postop day #1 status post right BKA Plan Continue IV antibiotics. Keep right lower extremity elevated. Keep dressings intact until postop day #3 Procedures Procedures Right below the knee amputation
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
[2024-05-28] MEDS: GABAPENTIN 300 MG CAPSULE PO ×2 (14:18→22:30)
[2024-05-28] MEDS: traMADol HCL 50 MG TABLET PO ×2 (14:22→20:21)
--- NOTE | 2024-05-28 14:35 | PD.RESPRO ---
Documentation for date of: 05/28/24 Subjective Subjective Interval history: Pt examined at bedside today. Pt required some additional pain medication overnight, took 0.25 dilaudid. Pt reports that he has some pain still s/p BKA but other complaints. Also continue working with PT, is expressing she go home rather than go to rehab upon discharge. Requesting crutches at some point. Requesting to do CAT before pt leaves if feasible. No other complaints this time Exam Vital Signs Temp Pulse Resp BP Pulse Ox O2 Del Method O2 Flow Rate 96.8 F 78 16 102/58 L 100 Room Air 3 05/28/24 12:00 05/28/24 12:00 05/28/24 12:00 05/28/24 12:00 05/28/24 12:00 05/28/24 12:00 05/27/24 16:30 Narrative Exam General: AAOx3, NAD, HEENT: Moist mucous membranes, conjunctiva clear, EOMI, PERRLA, Cardiovascular: S1, S2, radial pulses +2 bilat, RRR Pulmonary: CTAB bilat no cough, no wheezing GI: No tenderness to light or deep palpitation, no guarding, rigidity, rebound tenderness or distension Extremities: Various skin changes in the lower extremities, more so right lower extremity, with various stages of healing, RLE s/p bka, bandage present over stump, no active drainage left dorsalis pedis pulse +2, L heel has bandage, slightly erythematous superficial skin tear Neuro: AAOx3, no focal motor or sensory deficits in the UE or LE bilat Psych: Cooperative Objective Labs 05/30/24 05:33 05/30/24 05:33 Labs: Laboratory Results - last 24 hr 05/28/24 04:59 WBC 20.8 H D RBC 3.18 L Hgb 7.4 L Hct 23.9 L MCV 75 L MCH 23.3 L MCHC 31.0 RDW Std Deviation 44.3 H Plt Count 494 H D Neut % (Auto) 88 H Lymph % (Auto) 7 L [place] % (Auto) 4 Eos % (Auto) 0 Baso % (Auto) 0 Neut # (Auto) 18.2 H Lymph # (Auto) 1.5 [place] # (Auto) 0.7 Eos # (Auto) 0.0 Baso # (Auto) 0.1 Immature Gran # (Auto) 0.20 H Absolute Nucleated RBC 0.00 Immature Gran % 1 H Nucleated RBC % 0 Sodium 133 L Potassium 5.0 Chloride 108 H Carbon Dioxide 15.4 L Anion Gap 10 BUN 28 H Creatinine 1.4 H Estim Creat Clear Calc 72.8 eGFR 58 L BUN/Creatinine Ratio 20 Glucose 91 Calculated Osmolality 271 L Calcium 9.3 Corrected Calcium 9.3 Phosphorus 4.4 Magnesium 1.8 Total Bilirubin 0.3 AST 29 ALT 19 Alkaline Phosphatase 166 H Total Protein 8.5 H Albumin 4.2 Globulin 4.3 H Albumin/Globulin Ratio 1.0 L Quality Measures Quality Measures VTE prophylaxis (Heparin) Assessment & Plan Assessment Current Active Medications: Generic Name Dose Route Start Last Admin Trade Name Freq PRN Reason Stop Dose Admin Acetaminophen 650 mg 05/17/24 15:35 05/27/24 17:59 Acetaminophen 325 Mg Tablet PO 06/16/24 15:34 650 mg Q6H PRN Administration Pain (1-3) and Fever >101.5 Ascorbic Acid 500 mg 05/20/24 21:00 05/28/24 09:25 Ascorbic Acid 250 Mg Tablet PO 06/19/24 20:59 500 mg BID TRISTON Administration Atorvastatin Calcium 10 mg 05/17/24 21:00 05/27/24 20:43 Atorvastatin Calcium 10 Mg Tablet PO 06/16/24 20:59 10 mg HS TRISTON Administration Carvedilol 6.25 mg 05/22/24 17:30 05/28/24 09:24 Carvedilol 3.125 Mg Tablet PO 06/21/24 17:29 6.25 mg BIDWM TRISTON Administration Patients Own Insulin 0 ea 05/17/24 16:33 05/28/24 09:50 Pump-Medtronic SC 06/16/24 16:29 Not Given Minimed DAILY TRISTON Dextrose 25 ml 05/19/24 08:36 Dextrose 50%-Water Inj 50 Ml Syringe IV 06/18/24 08:35 Q15MIN PRN BG 50-70 responsive npo pt Dextrose 50 ml 05/19/24 08:36 Dextrose 50%-Water Inj 50 Ml Syringe IV 06/18/24 08:35 Q15MIN PRN BG <50 OR BG <70 & pt unresponsive Docusate Sodium 100 mg 05/20/24 21:00 05/28/24 09:24 Docusate Sod 100 Mg Capsule PO 06/19/24 20:59 100 mg BID TRISTON Administration Protocol Gabapentin 300 mg 05/28/24 14:00 05/28/24 14:18 Gabapentin 300 Mg Capsule PO 06/27/24 13:59 300 mg TID TRISTON Administration Glucagon 1 mg 05/17/24 15:35 Glucagon Inj 1 Mg Vial IM Q15MIN PRN BG <70, and no IV access Ceftriaxone Sodium 2 gm/ 50 mls @ 100 mls/hr 05/22/24 09:00 05/28/24 09:24 Sodium Chloride IV 05/29/24 08:59 100 mls/hr QDAY TRISTON Administration Levofloxacin/Dextrose 500 mg in 100 mls @ 100 mls/hr 05/23/24 11:00 05/28/24 09:23 Levaquin Ivpb IV 05/30/24 10:59 100 mls/hr QDAY TRISTON Administration Insulin Human Lispro 0 unit 05/20/24 15:52 05/28/24 13:53 Insulin Lispro (Admelog) 1 Unit/0.01 Ml Unit SC 06/18/24 17:59 Not Given Q6HR TRISTON Protocol Methadone HCl 65 mg 05/24/24 09:00 05/28/24 09:25 Methadone Solution 1 Mg/1 Ml PO 05/29/24 08:59 65 mg QDAY TRISTON Administration Protocol Metoclopramide HCl 5 mg 05/19/24 14:00 05/28/24 14:18 Metoclopramide Inj 5 Mg/Ml Vial 2 Ml IVP 06/18/24 13:59 5 mg Q8HR TRISTON Administration Protocol Morphine Sulfate 2 mg 05/28/24 12:01 Morphine Sulf Inj 10 Mg/Ml Vial IVP 06/01/24 15:56 Q4HR PRN PAIN SCALE 8-10 (Severe Ondansetron HCl 4 mg 05/18/24 01:49 05/19/24 00:01 Ondansetron Inj 2 Mg/Ml Inj 2 Ml IV 06/17/24 01:48 4 mg Q6HR PRN Administration NAUSEA OR VOMITING Protocol Pantoprazole Sodium 40 mg 05/18/24 14:00 05/28/24 09:23 Pantoprazole Inj 40 Mg Vial IV 06/17/24 13:59 40 mg QDAY TRISTON Administration Polyethylene Glycol 17 gm 05/18/24 13:55 05/28/24 09:24 Polyethylene Glycol 17 Gm Packet PO 06/17/24 13:54 17 gm QDAY TRISTON Administration Sennosides 1 tab 05/18/24 14:00 05/28/24 09:25 Senna Tablet PO 06/17/24 13:59 1 tab QDAY TRISTON Administration Protocol Tramadol HCl 50 mg 05/28/24 11:58 05/28/24 14:22 Tramadol Hcl 50 Mg Tablet PO 06/02/24 11:57 50 mg Q6HR PRN Administration Pain 4-7 or breakthrough pain Zinc Sulfate 220 mg 05/21/24 09:00 05/28/24 09:24 Zinc Sulfate 220 Mg Capsule PO 06/20/24 08:59 220 mg QDAY TRISTON Administration Plan Mr. 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 Patient admitted for osteomyelitis right foot, possible surgical intervention with below knee amputation. At this time, pt refuses to see some team members at this time due to not wanting to discuss plan other than with the primary doctor. #Osteomyelitis right foot #Diabetic right foot cellulitis #Pathological fracture of cuboid and calcaneus secondary to extensive osteomyelitis #Subtalar Charcot arthropathy #BKA, R side, post operative day one #SIRS 2/4 positive #Positive wound culture, group B strep #Leukocytosis, improving As per cardiology team, Dr. Saucedo, pt will not need cardiac clearance, which was also voiced by general surgery, Dr. Epperson as well the attending physician, Dr. Giron. Pt to get BKA on Sunday05/26/2024 Wound culture from procedure showed group b strep, resistant to clindamycin, sensitive to Rocephin WBC count ~21 today, has been increasing, likely secondary due to amputation, pt has not spiked a fever Patient had BKA by Dr. Epperson yesterday Will increase gabapentin for phantom pain Plan: ?Pain control ?Continue with PT -Continue Rocephin 2g IV daily -Levaquin 500 mg IV daily -Blood cultures no growth after two days -Surgery consult appreciate recs -Multimodal pain control including tramadol, Tylenol, methadone, Gabapentin 300 TID. 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 Echocardiogram shows possible vegetation on valves, recommend for CAT follow-up Patient has history of drug use but has not used in a while per patient Blood cultures: Negative for growth after 48 hours Echo: EF of 40, systolic dysfunction and wall motion abnormalities Will titrate Coreg as needed Patient requested to do CAT tomorrow before patient leaves, will speak with cardiology team if this will happen Plan: ?Blood cultures no growth after 2 days ?ID on consult, appreciate recs ?Continue with Rocephin and Levaquin ?Cardiology on consult, appreciate recs ?Continue Coreg to 6.25 ?Holding lisinopril 2.5 in setting of PADDY ?Keep mag and potassium above 2 and 4 respectively ?Patient n.p.o. at midnight #Acute kidney injury, improving #PADDY on CKD Patient presented with BUN 59, creatinine 3.8 and GFR 17, baseline unknown Creatinine 1.4 today, compared to 1.5 yesterday; HCO3- 16 Patient likely will have some form of CKD moving forward, we will have to establish baseline in the coming days Plan: ?Held lisinopril in setting of PADDY -Nephrology consulted in ED, appreciate recommendations -Avoid nephrotoxic agents -Renally dose medications ?As above #Constipation Multifactorial: Likely due to immobilization and narcotic Patient has got Colace, MiraLAX, senna and has failed Plan: Stable #Diabetes mellitus, insulin-dependent A1c of 8.3 Patient's blood sugars have not been controlled, have been in the 200s, will adjust management as patient currently uses insulin pump Will adjust insulin units throughout admission Insulin pump was removed initially because sugars weren't controlled and then was put on basal and SSI, as per family, pt was removing pump by himself w/o notifying nurses and providers Sugars continued to elevate overnight, sugars reaching 400s Family wants to use insulin pump and said they will put his insulin pump by themselves if his blood sugar continues to be above 300 We explained to them that the plan is to control his blood sugar and we want to know how to control his blood sugar in predictable fashion and putting the insulin pump without notifiying the provider can put patient at risk for hypoglycemia and further complications Family will continue to use insulin pump, we gave 40 units lispro yesterday since patient's sugar was up in the 400s Informed risk and benefits with patient and family in regards to the using the insulin pump instead of us managing insulin primarily, however they insist on using insulin pump in the hospital and us giving some bolus. We highly recommended patient to follow-up with infertility medical assistant outpatient as patient has PCP managing insulin pump Plan: -SSI sensitive ?Patient to continue using insulin pump -Glucose checks ACHS -Carb consistent low diet #Thrombocytosis Has been increasing throughout admission, currently at ~494 Plan: ? Trend with CBC #Hypertension #Hyperlipidemia -Blood pressure soft, patient on metoprolol tartrate 50 twice daily, lisinopril 40 daily and hydrochlorothiazide 25 daily at home will hold. -Hold lisinopril and hydrochlorothiazide due to PADDY -Continue home dose atorvastatin 10 at bedtime -Lisinopril and Coreg as above #Chronic pain #History of IV drug use #Methadone dependence #Chronic hep C Patient has had he has had a history of chronic hep C for a while now, has gone for 3-month treatment in the past but is stable right now Hep C IgG positive Plan: -Resumed gabapentin 100 3 times daily ?Resume home methadone 65 mg #Electrolyte imbalances #Hypomagnesemia -Replete as needed #Health Maintenance Disposition: Med telemetry DVT prophylaxis: Heparin GI prophylaxis: None Diet: N.p.o. at midnight CODE STATUS: Full Patient seen and care discussed with my attending physician, Dr. Rod Diamond, PGY-1 Attending Provider Attestation/Addendum 58-year-old male with multiple comorbidities including hypertension, hyperlipidemia, type 2 diabetes mellitus on insulin and chronic pain syndrome on methadone who presented to the ER on 05/17/2024 with right leg swelling found to have osteomyelitis and subsequently underwent right BKA. During course of hospitalization, patient underwent echocardiogram with findings of heart failure with reduced EF with EF 40% and possible mass/vegetation on the tricuspid valve and subsequently plan was to do CAT however patient refused. In addition, plan was to obtain a PICC line for IV antibiotic therapy however patient's and patient himself refused stating that they would rather do p.o. antibiotic therapy for 6 weeks until they get their CAT as outpatient. Counseled him regarding need for IV antibiotic therapy given that there is a concern for endocarditis and explained to them the risk of worsening disease progression which can lead to cardiac arrest and . They understand and would like to proceed with p.o. antibiotic therapy despite extensive counseling. Awaiting general surgery inputs. Plan to discharge patient in the next 24-48 hours. I reviewed above note and agree with findings and plans. I have also personally examined the patient with medicine team and went over assessment and plan with medical team including internet marketing analyst and resident physician.
[2024-05-28] MEDS: ATORVASTATIN CALCIUM 10 MG TABLET PO (20:21)
[2024-05-29] VITALS (16 sets, daily range): BP systolic 100–117; BP diastolic 53–64; PULSE 70–87; RESP 12–96; TEMP 35.8–36.6; O2SAT 95–100
[2024-05-29] MEDS: METOCLOPRAMIDE INJ 5 MG/ML VIAL 2 ML IVP ×3 (05:52→23:01)
[2024-05-29] MEDS: GABAPENTIN 300 MG CAPSULE PO ×3 (05:52→23:01)
[2024-05-29 06:02] LABS: Basophils # (Auto) 0.1 Thou/mm3 (0.0-0.2); Basophils % (Auto) 1 % (0-2.5); Eosinophils # (Auto) 0.2 Thou/mm3 (0.0-0.5); Eosinophils % (Auto) 1 % (0-10); Hematocrit 20.9 % (41.0-53.0); Immature Granulocytes % (Auto) 1 % (0-0); Immature Granulocytes Auto 0.14 Thou/mm3 (0.00-0.00); Lymphocytes # (Auto) 2.7 Thou/mm3 (1.0-4.8); Lymphocytes % (Auto) 18 % (10-50); Mean Corpuscular HGB Conc 30.6 g/dl (31.0-37.0); Mean Corpuscular Hemoglobin 23.5 pg (25.0-35.0); Mean Corpuscular Volume 77 fL (80-100); Monocytes # (Auto) 1.4 Thou/mm3 (0.0-0.8); Monocytes % (Auto) 9 % (0-12); Neutrophils # (Auto) 10.7 Thou/mm3 (1.8-7.7); Neutrophils % (Auto) 71 % (37-80); Nucleated Red Blood Cell % 0 /100 WBC (0); Platelet Count 708 Thou/mm3 (140-440); RDW Standard Deviation 45.6 fL (35.1-43.9); Red Blood Count 2.72 Miln/mm3 (4.50-5.90); White Blood Count 15.2 Thou/mm3 (3.8-10.6)
[2024-05-29 06:08] LABS: Hemoglobin 6.4 g/dL (13.5-16.0)
[2024-05-29 06:33] LABS: Alanine Aminotransferase 15 U/L (10-49); Albumin, Serum 3.7 gm/dL (3.5-5.0); Alkaline Phosphatase 134 U/L (46-116); Anion Gap 5 (7-16); Aspartate Amino Transferase 19 U/L (0-34); BUN/Creatinine Ratio 23 Ratio (12-20); Bilirubin,Total < 0.2 mg/dL (0.3-1.2); Blood Urea Nitrogen 41 mg/dL (9-23); Calcium 8.5 mg/dL (8.3-10.6); Calcium (Corrected) 8.7 mg/dL (8.5-10.1); Carbon Dioxide 20.5 mMol/L (20.0-31.0); Chloride 110 mMol/L (98-107); Creatinine (Component) 1.8 mg/dL (0.6-1.3); Estimated Creatinine Clearance 56.7 mL/min (>60); Globulin 3.7 gm/dL (2.3-3.5); Glucose 246 mg/dL (74-106); Magnesium 1.8 mg/dL (1.6-2.6); Osmolality,Calculated 288 (275-295); Phosphorous 5.5 mg/dL (2.4-5.1); Potassium 4.6 mMol/L (3.4-5.1); Sodium 135 mMol/L (136-145); Total Protein 7.4 gm/dL (5.7-8.2); eGFR 43 See Note
[2024-05-29] MEDS: ASCORBIC ACID 250 MG TABLET 500 MG PO ×2 (08:20→20:23)
[2024-05-29] MEDS: POLYETHYLENE GLYCOL 17 GM PACKET PO (08:20)
[2024-05-29] MEDS: LEVOFLOXACIN/D5W 500 MG IVPB 500 MG/100 ML BAG 100 MG IV (08:20)
[2024-05-29] MEDS: PANTOPRAZOLE INJ 40 MG VIAL IV (08:20)
[2024-05-29] MEDS: carVEDILOL 3.125 MG TABLET 6.25 MG PO ×2 (08:20→17:40)
[2024-05-29] MEDS: ZINC SULFATE 220 MG CAPSULE PO (08:20)
[2024-05-29] MEDS: SENNA TABLET 1 TAB PO (08:21)
[2024-05-29] MEDS: DOCUSATE SOD 100 MG CAPSULE PO ×2 (08:21→20:24)
[2024-05-29] MEDS: METHADONE SOLUTION 1 MG/1 ML 65 MG PO (08:37)
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
[2024-05-29] MEDS: traMADol HCL 50 MG TABLET PO ×2 (10:35→18:22)
[2024-05-29] MEDS: ACETAMINOPHEN 325 MG TABLET 650 MG PO ×2 (10:35→18:22)
[2024-05-29] MEDS: Magnesium Sulfate 2 GM Ivpb 2 GM/50 ML BAG IV (13:46)
--- NOTE | 2024-05-29 16:22 | PC.SS ---
Pt refused CAT. Hemoglobin dropped. General surgery and Cardio recommendations pending. Pt was able to sit at side of bed.
--- NOTE | 2024-05-29 17:08 | PD.RESPRO ---
Documentation for date of: 05/29/24 Subjective Subjective Interval history: Overnight patient's hemoglobin dropped to 6.4. Patient denied dizziness. Family requested 2 units of packed red blood cells to be transfused. Discussion with family to start with 1 unit and repeat H&H. Patient states that he has a left heel wound from pushing off with that left leg to get up. Patient states that he is doing PT and progressing. Pain is controlled. Patient was also scheduled for CAT this morning however he decided against it and wants to do it outpatient. Exam Vital Signs Temp Pulse Resp BP Pulse Ox O2 Del Method O2 Flow Rate 97.4 F 75 19 105/62 99 Room Air 3 05/29/24 16:00 05/29/24 16:00 05/29/24 16:00 05/29/24 16:00 05/29/24 16:00 05/29/24 16:00 05/27/24 16:30 Narrative Exam General: AAOx3, NAD, HEENT: Moist mucous membranes, conjunctiva clear, EOMI Cardiovascular:RRR Pulmonary: No respiratory distress no cough, no wheezing GI: No tenderness to light or deep palpitation, no guarding, rigidity, rebound tenderness or distension Extremities: Various skin changes in the lower extremities, more so right lower extremity, with various stages of healing, R foot s/p BKA with bandage, minimal drainage on dressing Neuro: AAOx3, no focal motor or sensory deficits in the UE or LE bilat Psych: Good judgement, thought and behavior Objective Labs 05/30/24 05:33 05/30/24 05:33 Labs: Laboratory Results - last 24 hr 05/29/24 05/29/24 04:49 06:35 WBC 15.2 H D RBC 2.72 L Hgb 6.4 L* Hct 20.9 L* MCV 77 L MCH 23.5 L MCHC 30.6 L RDW Std Deviation 45.6 H Plt Count 708 H D Neut % (Auto) 71 Lymph % (Auto) 18 [place] % (Auto) 9 Eos % (Auto) 1 Baso % (Auto) 1 Neut # (Auto) 10.7 H Lymph # (Auto) 2.7 [place] # (Auto) 1.4 H Eos # (Auto) 0.2 Baso # (Auto) 0.1 Immature Gran # (Auto) 0.14 H Absolute Nucleated RBC 0.00 Immature Gran % 1 H Nucleated RBC % 0 Sodium 135 L Potassium 4.6 Chloride 110 H Carbon Dioxide 20.5 Anion Gap 5 L BUN 41 H Creatinine 1.8 H Estim Creat Clear Calc 56.7 L eGFR 43 L BUN/Creatinine Ratio 23 H Glucose 246 H D Calculated Osmolality 288 Calcium 8.5 Corrected Calcium 8.7 Phosphorus 5.5 H Magnesium 1.8 Total Bilirubin < 0.2 L AST 19 ALT 15 Alkaline Phosphatase 134 H D Total Protein 7.4 Albumin 3.7 D Globulin 3.7 H Albumin/Globulin Ratio 1.0 L Blood Type A Positive Antibody Screen NEGATIVE Crossmatch See Detail Blood Bank Wristband ID Yes Quality Measures Quality Measures VTE prophylaxis (Heparin) Assessment & Plan Assessment Current Active Medications: Generic Name Dose Route Start Last Admin Trade Name Freq PRN Reason Stop Dose Admin Acetaminophen 650 mg 05/17/24 15:35 05/29/24 10:35 Acetaminophen 325 Mg Tablet PO 06/16/24 15:34 650 mg Q6H PRN Administration Pain (1-3) and Fever >101.5 Ascorbic Acid 500 mg 05/20/24 21:00 05/29/24 08:20 Ascorbic Acid 250 Mg Tablet PO 06/19/24 20:59 500 mg BID TRISTON Administration Atorvastatin Calcium 10 mg 05/17/24 21:00 05/28/24 20:21 Atorvastatin Calcium 10 Mg Tablet PO 06/16/24 20:59 10 mg HS TRISTON Administration Carvedilol 6.25 mg 05/22/24 17:30 05/29/24 08:20 Carvedilol 3.125 Mg Tablet PO 06/21/24 17:29 6.25 mg BIDWM TRISTON Administration Patients Own Insulin 0 ea 05/17/24 16:33 05/29/24 08:34 Pump-Medtronic SC 06/16/24 16:29 Not Given Minimed DAILY TRISTON Dextrose 25 ml 05/19/24 08:36 Dextrose 50%-Water Inj 50 Ml Syringe IV 06/18/24 08:35 Q15MIN PRN BG 50-70 responsive npo pt Dextrose 50 ml 05/19/24 08:36 Dextrose 50%-Water Inj 50 Ml Syringe IV 06/18/24 08:35 Q15MIN PRN BG <50 OR BG <70 & pt unresponsive Docusate Sodium 100 mg 05/20/24 21:00 05/29/24 08:21 Docusate Sod 100 Mg Capsule PO 06/19/24 20:59 100 mg BID TRISTON Administration Protocol Gabapentin 300 mg 05/28/24 14:00 05/29/24 13:37 Gabapentin 300 Mg Capsule PO 06/27/24 13:59 300 mg TID TRISTON Administration Glucagon 1 mg 05/17/24 15:35 Glucagon Inj 1 Mg Vial IM Q15MIN PRN BG <70, and no IV access Levofloxacin/Dextrose 500 mg in 100 mls @ 100 mls/hr 05/23/24 11:00 05/29/24 08:20 Levaquin Ivpb IV 05/30/24 10:59 100 mls/hr QDAY TRISTON Administration Insulin Human Lispro 0 unit 05/20/24 15:52 05/29/24 11:22 Insulin Lispro (Admelog) 1 Unit/0.01 Ml Unit SC 06/18/24 17:59 Not Given Q6HR TRISTON Protocol Methadone HCl 65 mg 05/24/24 09:00 05/29/24 08:37 Methadone Solution 1 Mg/1 Ml PO 06/05/24 08:59 65 mg QDAY TRISTON Administration Protocol Metoclopramide HCl 5 mg 05/19/24 14:00 05/29/24 13:37 Metoclopramide Inj 5 Mg/Ml Vial 2 Ml IVP 06/18/24 13:59 5 mg Q8HR TRISTON Administration Protocol Morphine Sulfate 2 mg 05/28/24 12:01 Morphine Sulf Inj 10 Mg/Ml Vial IVP 06/01/24 15:56 Q4HR PRN PAIN SCALE 8-10 (Severe Ondansetron HCl 4 mg 05/18/24 01:49 05/19/24 00:01 Ondansetron Inj 2 Mg/Ml Inj 2 Ml IV 06/17/24 01:48 4 mg Q6HR PRN Administration NAUSEA OR VOMITING Protocol Pantoprazole Sodium 40 mg 05/18/24 14:00 05/29/24 08:20 Pantoprazole Inj 40 Mg Vial IV 06/17/24 13:59 40 mg QDAY TRISTON Administration Polyethylene Glycol 17 gm 05/18/24 13:55 05/29/24 08:20 Polyethylene Glycol 17 Gm Packet PO 06/17/24 13:54 17 gm QDAY TRISTON Administration Sennosides 1 tab 05/18/24 14:00 12/12/24 08:21 Senna Tablet PO 06/17/24 13:59 1 tab QDAY TRISTON Administration Protocol Tramadol HCl 50 mg 05/28/24 11:58 05/29/24 10:35 Tramadol Hcl 50 Mg Tablet PO 06/02/24 11:57 50 mg Q6HR PRN Administration Pain 4-7 or breakthrough pain Zinc Sulfate 220 mg 05/21/24 09:00 05/29/24 08:20 Zinc Sulfate 220 Mg Capsule PO 06/20/24 08:59 220 mg QDAY TRISTON Administration Plan Mr. Muhammad is a 58-year-old male with past medical history of diabetes mellitus, hypertension, hyperlipidemia, chronic pain and IV heroin drug (currently on methadone) use who presented to [facility] with a chief complaint of right leg swelling and tenderness. Patient admitted for osteomyelitis right foot, possible surgical intervention with below knee amputation. At this time, pt refuses to see some team members at this time due to not wanting to discuss plan other than with the primary doctor. #Osteomyelitis right foot #Diabetic right foot cellulitis #Pathological fracture of cuboid and calcaneus secondary to extensive osteomyelitis #Subtalar Charcot arthropathy #BKA, R side, post operative day one #SIRS 2/4 positive #Positive wound culture, group B strep #Leukocytosis, improving As per cardiology team, Dr. Saucedo, pt will not need cardiac clearance, which was also voiced by general surgery, Dr. Epperson as well the attending physician, Dr. Giron. Wound culture from procedure showed group b strep, resistant to clindamycin, sensitive to Rocephin WBC count downtrending Patient had BKA by Dr. Epperson 05/26 Will increase gabapentin for phantom pain Plan: ?Pain control ?Continue with PT -Continue Rocephin 2g IV daily -Levaquin 500 mg IV daily -Blood cultures no growth after two days -Surgery consult appreciate recs -Multimodal pain control including tramadol, Tylenol, methadone, Gabapentin 300 TID. 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 Echocardiogram shows possible vegetation on valves, recommend for CAT follow-up Patient has history of drug use but has not used in a while per patient Blood cultures: Negative for growth after 48 hours Echo: EF of 40, systolic dysfunction and wall motion abnormalities Will titrate Coreg as needed Patient requested to do CAT, however changed his mind this morning last minute and deferred to outpatient Plan: ?Blood cultures no growth after 2 days ?ID on consult, appreciate recs ?Continue with Rocephin and Levaquin ?Cardiology on consult, appreciate recs ?Continue Coreg to 6.25 ?Holding lisinopril 2.5 in setting of PADDY ?Keep mag and potassium above 2 and 4 respectively # Acute on chronic microcytic anemia Low iron, normal ferritin and TIBC Hemoglobin 6.4 this morning, received 1 unit PRBC Likely due to to blood loss from multiple surgeries Plan: -Repeat H&H -Transfuse as needed #Acute kidney injury, improving #PADDY on CKD Patient presented with BUN 59, creatinine 3.8 and GFR 17, baseline unknown Creatinine 1.8 today, compared to 1.4 yesterday Patient likely will have some form of CKD moving forward, we will have to establish baseline in the coming days Plan: ?Held lisinopril in setting of PADDY -Nephrology consulted in ED, appreciate recommendations -Avoid nephrotoxic agents -Renally dose medications ?As above #Constipation Multifactorial: Likely due to immobilization and narcotic Patient has got Colace, MiraLAX, senna and has failed Plan: Stable #Diabetes mellitus, insulin-dependent A1c of 8.3 Patient's blood sugars have not been controlled, have been in the 200s, will adjust management as patient currently uses insulin pump Will adjust insulin units throughout admission Insulin pump was removed initially because sugars weren't controlled and then was put on basal and SSI, as per family, pt was removing pump by himself w/o notifying nurses and providers Sugars continued to elevate overnight, sugars reaching 400s Family wants to use insulin pump and said they will put his insulin pump by themselves if his blood sugar continues to be above 300 We explained to them that the plan is to control his blood sugar and we want to know how to control his blood sugar in predictable fashion and putting the insulin pump without notifiying the provider can put patient at risk for hypoglycemia and further complications Family will continue to use insulin pump, we gave 40 units lispro yesterday since patient's sugar was up in the 400s Informed risk and benefits with patient and family in regards to the using the insulin pump instead of us managing insulin primarily, however they insist on using insulin pump in the hospital and us giving some bolus. We highly recommended patient to follow-up with cloth shearing supervisor outpatient as patient has PCP managing insulin pump Plan: -SSI sensitive ?Patient to continue using insulin pump -Glucose checks ACHS -Carb consistent low diet #Thrombocytosis Has been increasing throughout admission, currently at ~708 Plan: ? Trend with CBC #Hypertension #Hyperlipidemia -Blood pressure soft, patient on metoprolol tartrate 50 twice daily, lisinopril 40 daily and hydrochlorothiazide 25 daily at home will hold. -Hold lisinopril and hydrochlorothiazide due to PADDY -Continue home dose atorvastatin 10 at bedtime -Lisinopril and Coreg as above #Chronic pain #History of IV drug use #Methadone dependence #Chronic hep C Patient has had he has had a history of chronic hep C for a while now, has gone for 3-month treatment in the past but is stable right now Hep C IgG positive Plan: -Resumed gabapentin 100 3 times daily ?Resume home methadone 65 mg #Electrolyte imbalances #Hypomagnesemia -Replete as needed #Health Maintenance Disposition: Med telemetry DVT prophylaxis: Heparin GI prophylaxis: None Diet: Cardiac CODE STATUS: Full Patient seen and care discussed with my attending physician, Dr. Rod Chun, PGY1 Attending Provider Attestation/Addendum 58-year-old male with multiple comorbidities including hypertension, hyperlipidemia, type 2 diabetes mellitus on insulin and chronic pain syndrome on methadone who presented to the ER on 05/17/2024 with right leg swelling found to have osteomyelitis and subsequently underwent right BKA. During course of hospitalization, patient underwent echocardiogram with findings of heart failure with reduced EF with EF 40% and possible mass/vegetation on the tricuspid valve and subsequently plan was to do CAT however patient refused. In addition, plan was to obtain a PICC line for IV antibiotic therapy however patient's and patient himself refused stating that they would rather do p.o. antibiotic therapy for 6 weeks until they get their CAT as outpatient. Counseled him regarding need for IV antibiotic therapy given that there is a concern for endocarditis and explained to them the risk of worsening disease progression which can lead to cardiac arrest and . They understand and would like to proceed with p.o. antibiotic therapy despite extensive counseling. Awaiting general surgery inputs. Plan to discharge patient in the next 24-48 hours. I reviewed above note and agree with findings and plans. I have also personally examined the patient with medicine team and went over assessment and plan with medical team including manufacturing intern and resident physician.
[2024-05-29 17:43] LABS: Hematocrit 24.6 % (41.0-53.0)
[2024-05-29 18:16] LABS: Hemoglobin 7.7 g/dL (13.5-16.0)
[2024-05-29] MEDS: ATORVASTATIN CALCIUM 10 MG TABLET PO (20:24)
[2024-05-29] MEDS: MORPHINE SULF INJ 10 MG/ML VIAL 2 MG IVP (20:32)
[2024-05-30] VITALS (9 sets, daily range): BP systolic 107–130; BP diastolic 58–72; PULSE 71–104; RESP 17–19; TEMP 36.1–36.6; O2SAT 96–99
[2024-05-30] MEDS: GABAPENTIN 300 MG CAPSULE PO ×2 (05:34→14:08)
[2024-05-30] MEDS: METOCLOPRAMIDE INJ 5 MG/ML VIAL 2 ML IVP ×2 (05:34→14:07)
[2024-05-30 05:44] LABS: Basophils # (Auto) 0.1 Thou/mm3 (0.0-0.2); Basophils % (Auto) 1 % (0-2.5); Eosinophils # (Auto) 0.2 Thou/mm3 (0.0-0.5); Eosinophils % (Auto) 2 % (0-10); Hematocrit 24.6 % (41.0-53.0); Immature Granulocytes % (Auto) 1 % (0-0); Immature Granulocytes Auto 0.09 Thou/mm3 (0.00-0.00); Lymphocytes # (Auto) 2.6 Thou/mm3 (1.0-4.8); Lymphocytes % (Auto) 20 % (10-50); Mean Corpuscular HGB Conc 31.7 g/dl (31.0-37.0); Mean Corpuscular Volume 76 fL (80-100); Monocytes # (Auto) 1.2 Thou/mm3 (0.0-0.8); Monocytes % (Auto) 9 % (0-12); Neutrophils # (Auto) 8.8 Thou/mm3 (1.8-7.7); Neutrophils % (Auto) 68 % (37-80); Nucleated Red Blood Cell % 0 /100 WBC (0); Platelet Count 650 Thou/mm3 (140-440); RDW Standard Deviation 46.4 fL (35.1-43.9); Red Blood Count 3.25 Miln/mm3 (4.50-5.90)
--- NOTE | 2024-05-30 06:00 | PC.NURSE ---
redness to left heel- Cleansed with wound cleanser, pat dry, applied no sting barrier prep, covered with allevyn.
[2024-05-30 06:28] LABS: Alanine Aminotransferase 15 U/L (10-49); Albumin, Serum 3.7 gm/dL (3.5-5.0); Alkaline Phosphatase 113 U/L (46-116); Anion Gap 8 (7-16); Aspartate Amino Transferase 15 U/L (0-34); BUN/Creatinine Ratio 22 Ratio (12-20); Bilirubin,Total < 0.2 mg/dL (0.3-1.2); Blood Urea Nitrogen 35 mg/dL (9-23); Calcium 8.8 mg/dL (8.3-10.6); Carbon Dioxide 19.7 mMol/L (20.0-31.0); Chloride 110 mMol/L (98-107); Creatinine (Component) 1.6 mg/dL (0.6-1.3); Estimated Creatinine Clearance 63.7 mL/min (>60); Globulin 3.7 gm/dL (2.3-3.5); Glucose 91 mg/dL (74-106); Magnesium 2.2 mg/dL (1.6-2.6); Osmolality,Calculated 283 (275-295); Phosphorous 4.6 mg/dL (2.4-5.1); Potassium 4.6 mMol/L (3.4-5.1); Sodium 138 mMol/L (136-145); Total Protein 7.4 gm/dL (5.7-8.2); eGFR 49 See Note
[2024-05-30 06:39] LABS: Hemoglobin 7.8 g/dL (13.5-16.0)
[2024-05-30] MEDS: ZINC SULFATE 220 MG CAPSULE PO (08:50)
[2024-05-30] MEDS: carVEDILOL 3.125 MG TABLET 6.25 MG PO (08:50)
[2024-05-30] MEDS: SENNA TABLET 1 TAB PO (08:50)
[2024-05-30] MEDS: DOCUSATE SOD 100 MG CAPSULE PO (08:50)
[2024-05-30] MEDS: ASCORBIC ACID 250 MG TABLET 500 MG PO (08:50)
[2024-05-30] MEDS: METHADONE SOLUTION 1 MG/1 ML 65 MG PO (08:51)
[2024-05-30] MEDS: PANTOPRAZOLE INJ 40 MG VIAL IV (08:51)
[2024-05-30] MEDS: LEVOFLOXACIN/D5W 500 MG IVPB 500 MG/100 ML BAG 100 MG IV (08:51)
[2024-05-30] MEDS: POLYETHYLENE GLYCOL 17 GM PACKET PO (08:51)
--- NOTE | 2024-05-30 11:06 | PC.SS ---
Follow up note: Pending Dr. Epperson recommendations. Pt will return home with HH.
--- NOTE | 2024-05-30 13:28 | PD.HHDS ---
Planned Discharge Date 05/30/24 DS: Providers Provider Date of admission: 05/17/24 14:58 Primary care physician: Jose Alberto Oliveira PA-C Admitting Provider: Sabrina Velasco MD Attending Provider on Admission: Sabrina Velasco MD Consults: 05/17/24 13:06 Consult to Orthopedic Stat Comment: Right septic ankle Consulting Provider: David Wallace 05/17/24 13:22 Consult to Nephrology Stat Comment: PADDY Consulting Provider: Naomi Yu 05/17/24 15:44 Referral Wound Care Routine Comment: 05/21/24 08:40 Consult to Cardiology Routine Comment: Consulting Provider: oTm Saucedo Instructions: Rule out IE, Echo shows echogenic mass, Drug hx 05/21/24 09:09 Consult to Infectious Diseases Stat Comment: possible vegetations Consulting Provider: Melvin Zhao 05/25/24 09:46 Referral Physical Therapy Routine Comment: Physician Instructions: Attending Provider on DC: Sabrina Velasco MD Discharging Provider: Sabrina Velasco MD Diagnosis Problem List Completed Was Problem List Reviewed/Reconciled?: Yes Hospital Course - Hospitalist Hospital Course Hospital course: 58-year-old male with multiple comorbidities including hypertension, hyperlipidemia, type 2 diabetes mellitus on insulin and chronic pain syndrome on methadone who presented to the ER on 05/17/2024 with right leg swelling found to have osteomyelitis and subsequently underwent right BKA. During course of hospitalization, patient underwent echocardiogram with findings of heart failure with reduced EF with EF 40% and possible mass/vegetation on the tricuspid valve and subsequently plan was to do CAT however patient refused. In addition, plan was to obtain a PICC line for IV antibiotic therapy however patient's and patient himself refused stating that they would rather do p.o. antibiotic therapy for 6 weeks until they get their CAT as outpatient. Counseled him regarding need for IV antibiotic therapy given that there is a concern for endocarditis and explained to them the risk of worsening disease progression which can lead to cardiac arrest and . They understand and would like to proceed with p.o. antibiotic therapy despite extensive counseling. As of now, patient is hemodynamically stable, plan to discharge the patient home with p.o. antibiotic therapy. 1. Right foot extensive osteomyelitis ? Patient is status post BKA ? Will see general surgery in 2 weeks 2. Echogenic mass on the tricuspid valve concerning for endocarditis ? Patient noted to have echogenic mass on the tricuspid valve on TTE and thus recommendation was to obtain a CAT however they refused ? Blood cultures negative ? Refused PICC line and IV antibiotic therapy ?Counseled him regarding need for IV antibiotic therapy given that there is a concern for endocarditis and explained to them the risk of worsening disease progression which can lead to cardiac arrest and . They understand and would like to proceed with p.o. antibiotic therapy despite extensive counseling. As of now, patient is hemodynamically stable, plan to discharge the patient home with p.o. antibiotic therapy. ? Will discharge on Augmentin and doxycycline until 06/28/2024 ? Given ER precaution was told that if he was to get fevers, chills, shortness of breath to call 911 or present to the nearest ER 3. Heart failure with reduced EF ? Echocardiogram with EF 40% ? Will discharge the patient on metoprolol and patient to follow-up with cardiology and PCP ? Urged PCP to start CRISTINA/ARB/Entresto ? Will hold off on diuretic therapy 4. Hypertension ? Continue metoprolol ? As an outpatient, if BP tolerate can be started on CRISTINA/ARB/Entresto given heart failure 5. Hyperlipidemia ? Continue Lipitor 6. Microcytic anemia ? Did require blood products however likely related to postsurgical anemia ? Denies any melena, hematochezia or hematemesis ? Will require outpatient anemia workup 7. Hep C virus ? Hepatitis C antibody was positive ? Will need viral load as outpatient and infectious disease follow-up Time Spent with Patient Time attestation: Total time spent providing and/or coordinating discharge services: Time spent: Greater than 30 minutes Discharge Results Labs Diagrams: 05/30/24 05:33 05/30/24 05:33 Labs: Short CBC 05/29/24 05/30/24 Range/Units 17:32 05:33 WBC 13.0 H (3.8-10.6) Thou/mm3 Hgb 7.7 L D 7.8 L (13.5-16.0) g/dL Hct 24.6 L 24.6 L (41.0-53.0) % Plt Count 650 H D (140-440) Thou/mm3 BMP 05/30/24 05:33 Sodium 138 Potassium 4.6 Chloride 110 H Carbon Dioxide 19.7 L BUN 35 H Creatinine 1.6 H Glucose 91 D Calcium 8.8 Liver Function 05/30/24 Range/Units 05:33 Total Bilirubin < 0.2 L (0.3-1.2) mg/dL AST 15 (0-34) U/L ALT 15 (10-49) U/L Alkaline Phosphatase 113 D (46-116) U/L Albumin 3.7 (3.5-5.0) gm/dL Exam Vital Signs Temp Pulse Resp BP Pulse Ox O2 Del Method O2 Flow Rate 96.9 F 78 18 107/58 L 96 Room Air 3 05/30/24 11:50 05/30/24 11:54 05/30/24 11:50 05/30/24 11:50 05/30/24 11:50 05/30/24 11:50 05/30/24 00:00 Narrative Physical Exam: General: Alert and oriented to name, date of and place HEENT: Normocephalic, atraumatic Cardiac: Regular rate and rhythm, no murmurs Lungs: Clear to auscultation with no wheezing or crackles Abdomen: Nondistended, nontender positive bowel sounds. No guarding or rebound tenderness. Neurology: Cranial nerves II to XII intact and patient able to move all 4 extremities including BKA Skin: Right BKA with dressing in place with no drainage. Discharge Plan Plan Patient Disposition: Home w/HOME HEALTH Disposition Comment: Stable Patient condition on transfer: Stable Prescriptions/Referrals Prescriptions/Med Rec: New doxycycline hyclate 100 mg capsule 100 mg PO BID 30 Days Qty: 60 0RF amoxicillin-pot clavulanate 875-125 mg tablet 1 tab PO BID 30 Days Qty: 60 0RF ascorbic acid (vitamin C) [Vitamin C] 500 mg tablet,chewable 500 mg PO BID Qty: 60 0RF zinc sulfate 50 mg zinc (220 mg) tablet 50 mg PO QDAY Qty: 30 0RF Continued insulin glargine [Lantus U-100 Insulin] 100 U/ML solution 60 unit Sub-Q QAM Qty: 0 insulin lispro [Humalog U-100 Insulin] 100 U/ML solution Sub-Q AC Qty: 0 Hydrocodone/Acetaminophen * (NORCO 7.5/325 *) 1 TAB tablet 1 tab PO Q6H PRN (Reason: PAIN) Qty: 20 0RF aspirin 81 mg Tablet 81 mg PO 1XD atorvastatin [Lipitor] 10 mg Tablet 10 mg 1XD metformin 1,000 mg Tablet 1,000 mg 2XD metoprolol tartrate 50 mg tablet 50 mg 2XD Patient Comments: take 1 tablet by mouth twice a day with meals gabapentin 100 mg Capsule 100 mg PO TID methadone 10 mg/mL Syringe 65 mg PO QDAY Trulicity 1.5 mg/0.5 mL pen injector 1.5 mg SUBCUT Patient Comments: inject 0.5 milliliters subcutaneously every week IN THE ABDOMEN,T... (REFER TO PRESCRIPTION NOTES). Discontinued lisinopril 40 mg Tablet 40 mg 1XD hydrochlorothiazide 25 mg Tablet 25 mg PO QDAY Referrals: Jose Alberto Oliveira PA-C [Primary Care Provider] - Patient/Caregiver Discharge Instructions Discharge Activity: activity as tolerated Education Materials: Amputation What to Expect After, Preventing Surgical Site Infections Print Language: Martiniquais Activity Restrictions/Additional Instructions: May shower. No weightbearing on right lower extremity. Keep chief enterprise architect and stump protector at all times. Follow-up with Dr Epperson in 2 to 3 weeks, please call [phone] for an appointment. Stand Alone Forms: Lissette Award Info., Patient Portal Info Letter Discharge Order Discharge Orders: Discharge (Routine); Ordered 05/30/24 Ordered By: Sabrina Velasco Quality Discharge Quality Measures VTE prophylaxis
--- NOTE | 2024-05-30 13:38 | ESPR_ITS ---
Documentation for date of: 05/30/24 Subjective Subjective Narrative: Patient is seen and examined. He is resting comfortably Exam Vital Signs Temp Pulse Resp BP Pulse Ox O2 Del Method O2 Flow Rate 96.9 F 78 18 107/58 L 96 Room Air 3 05/30/24 11:50 05/30/24 11:54 05/30/24 11:50 05/30/24 11:50 05/30/24 11:50 05/30/24 11:50 05/30/24 00:00 Constitutional Constitutional: no acute distress Routine Extremities Exam Comments: Right BKA stump dressings removed, incision healing well with some edema but no drainage or bleeding Assessment & Plan Assessment Additional comments: Postop day #3 status post right BKA Plan Stump is healing well. [employer] prosthesis was contacted to provide talent acquisition director and stump protector. Patient can be discharged Procedures Procedures Right below the knee amputation
[2024-05-30] MEDS: ACETAMINOPHEN 325 MG TABLET 650 MG PO (14:08)
[2024-05-30] MEDS: traMADol HCL 50 MG TABLET PO (14:08)
--- NOTE | 2024-06-02 16:47 | PC.CM ---
I received a call from patients . Patient was discharged on 05/30 and she states patient was going to be followed by home health. I looked at the EMR, but the disposition did not say home with home health. the transfer nurse department did not send the referral. I was able to send off referral today. did not have a preference.
--- NOTE | 2024-06-03 19:31 | PC.CM ---
[facility] accepted patient and start of care set for 06/05.
== END 2024-05-30 17:25 | disposition home health service (06) | DRG 617 ==
LOC: SERX 14:39 → SERHOLD 15:14 → S3SX 16:18
PROVIDERS: Internal Medicine Infectious Disease; Surgery; Admitting Provider Internal Medicine; Emergency Provider Emergency Medicine; PCP Physician Assistant; Visit Provider Internal Medicine
PROC: 0Y6M0Z0 Detachment at Right Foot, Complete, Open Approach (ICD-10-PCS; CPT 27880; principal; 2024-05-20 12:45)
PROC: 0Y6H0Z1 Detachment at Right Lower Leg, High, Open Approach (ICD-10-PCS; CPT 27880; principal; 2024-05-27 16:30)
DX: E11.69 Type 2 diabetes mellitus with other specified complication (principal); E87.20 Acidosis, unspecified; L03.115 Cellulitis of right lower limb; F11.20 Opioid dependence, uncomplicated; M84.674A Pathological fracture in other disease, right foot, initial encounter for fracture; I13.0 Hypertensive heart and chronic kidney disease with heart failure and stage 1 through stage 4 chronic kidney disease, or unspecified chronic kidney disease; I50.20 Unspecified systolic (congestive) heart failure; Z16.29 Resistance to other single specified antibiotic; M86.671 Other chronic osteomyelitis, right ankle and foot; I38 Endocarditis, valve unspecified; N17.9 Acute kidney failure, unspecified; E78.5 Hyperlipidemia, unspecified; M89.771 Major osseous defect, right ankle and foot; E83.42 Hypomagnesemia; E11.610 Type 2 diabetes mellitus with diabetic neuropathic arthropathy; B18.2 Chronic viral hepatitis C; D75.839 Thrombocytosis, unspecified; L97.519 Non-pressure chronic ulcer of other part of right foot with unspecified severity; E11.51 Type 2 diabetes mellitus with diabetic peripheral angiopathy without gangrene; G89.4 Chronic pain syndrome; E11.621 Type 2 diabetes mellitus with foot ulcer; D50.9 Iron deficiency anemia, unspecified; N18.9 Chronic kidney disease, unspecified; B95.1 Streptococcus, group B, as the cause of diseases classified elsewhere; E11.22 Type 2 diabetes mellitus with diabetic chronic kidney disease; K59.00 Constipation, unspecified; M54.9 Dorsalgia, unspecified; Z53.29 Procedure and treatment not carried out because of patient's decision for other reasons; Z87.891 Personal history of nicotine dependence; Z96.41 Presence of insulin pump (external) (internal); Z90.49 Acquired absence of other specified parts of digestive tract; Z90.81 Acquired absence of spleen; Z79.4 Long term (current) use of insulin; Z79.899 Other long term (current) drug therapy
CPT/HCPCS: 36415; 71045; 73610; 73630; 73700; 76770; 80053; 80061; 80202; 81001; 82728; 82947; 83036; 83540; 83550; 83605; 83690; 83735; 83880; 84100; 84145; 84443; 84484; 85014; 85018; 85025; 85610; 85652; 85730; 86140; 86703; 86803; 86850; 86900; 86901; 86923; 87040; 87070; 87075; 87077; 87086; 87186; 87205; 93005; 93225; 93306; 93922; 93971; 94762; 96365; 97162; 99285; A4217; A4649; J0131; J0696; J1100; J1643; J1815; J1956; J2250; J2270; J2371; J2405; J2470; J2543; J2704; J2765; J3010; J3371; J3475; J3480; J3490; J7030; J7040; J7050; J7120; P9016; S0077; A9270; J0736; J1644; J3370

== ENCOUNTER → 2024-07-07 | Outpatient (CLI) | payer MEDICARE, MEDICAID, SELFPAY ==
[2024-07-07] VITALS (12 sets, daily range): BP systolic 139–208; BP diastolic 78–140; PULSE 58–70; RESP 15–26; TEMP 36.3; O2SAT 94–100; BMI 31.1
[2024-07-07 07:47] LABS: Anion Gap 9 (7-16); BUN/Creatinine Ratio 16 Ratio (12-20); Blood Urea Nitrogen 18 mg/dL (9-23); Chloride 101 mMol/L (98-107); Creatinine (Component) 1.1 mg/dL (0.6-1.3); Glucose 179 mg/dL (74-106); Magnesium 1.6 mg/dL (1.6-2.6); Osmolality,Calculated 276 (275-295); Potassium 4.4 mMol/L (3.4-5.1); Sodium 135 mMol/L (136-145); eGFR > 60 See Note
[2024-07-07 08:08] LABS: Basophils # (Auto) 0.1 Thou/mm3 (0.0-0.2); Basophils % (Auto) 1 % (0-2.5); Eosinophils # (Auto) 0.2 Thou/mm3 (0.0-0.5); Eosinophils % (Auto) 1 % (0-10); Hematocrit 35.6 % (41.0-53.0); Hemoglobin 11.1 g/dL (13.5-16.0); Immature Granulocytes % (Auto) 0 % (0-0); Immature Granulocytes Auto 0.05 Thou/mm3 (0.00-0.00); Lymphocytes # (Auto) 2.3 Thou/mm3 (1.0-4.8); Lymphocytes % (Auto) 19 % (10-50); Mean Corpuscular HGB Conc 31.2 g/dl (31.0-37.0); Mean Corpuscular Hemoglobin 24.2 pg (25.0-35.0); Mean Corpuscular Volume 78 fL (80-100); Monocytes # (Auto) 0.7 Thou/mm3 (0.0-0.8); Monocytes % (Auto) 6 % (0-12); Neutrophils # (Auto) 8.5 Thou/mm3 (1.8-7.7); Neutrophils % (Auto) 72 % (37-80); Nucleated Red Blood Cell % 0 /100 WBC (0); Platelet Count 461 Thou/mm3 (140-440); RDW Standard Deviation 48.3 fL (35.1-43.9); Red Blood Count 4.58 Miln/mm3 (4.50-5.90); White Blood Count 11.8 Thou/mm3 (3.8-10.6)
--- NOTE | 2024-07-07 08:17 | ECHO_ITS ---
Transesophageal Echo Report Ht (in): 72 Wt (lb): 230 Exam Location: [facility] Status: Outpatient Fence Rider: Shakira Bautista Indications: Procedure Performed: BP: 171 / 70 HR: 60 Contrast: Agitated Saline Rhythm: Sinus Technical Quality: Fair Total Dose(mL): Medications The patient is medicated with 4mg of intravenous Versed and 100mcg of intravenous Fentanyl. Complications There are no complicatons prior to, during or in recovery from the tranesophageal echocardiogram. FINDINGS Left Ventricle Normal left ventricular size, wall thickness, systolic function with no obvious regional wall motion abnormalities. The ejection fraction is visually estimated at 55-60%. Right Ventricle The right ventricle is normal in size and systolic function. Left Atrium The left atrium is normal. Right Atrium The right atrium is normal. Atrial Appendages The left atrial appendage appears normal with no evidence for thrombus. Atrial Septum The interatrial septum appears normal with no evidence of a shunt. Aorta The aorta is normal. Mitral Valve The mitral valve is normal. There is mild mitral valve regurgitation. Aortic Valve The aortic valve is trileaflet and normal. There is trace aortic valve regurgitation. Tricuspid Valve There is mild tricuspid valve annular calcification. There is trace tricuspid valve regurgitation. Pulmonic Valve The pulmonic valve is normal. There is no significant pulmonic valve regurgitation. Vessels The pulmonary artery appears normal. The inferior vena cava pulmonary and hepatic veins appear javier l. Pericardium The pericardium is normal. There is no significant pericardial effusion. CONCLUSIONS Indcation: Rule out valvular vegetation No evidence of any vegetations noted on tricuspid valve or any other valves. There is mild tricuspid valve annular calcification. No evidence of PFO/ASD or LA/KYAW thrombus. Normal LV size and function. Estimated EF 55-60% Normal RV size and function. Mild MR. Tace AI. TRLeo Saucedo (Electronically Signed) Final Date: 07 July 2024 15:46
[2024-07-07] MEDS: SODIUM CHLORIDE 0.45 % 500 ML 150 ML IV (08:30)
[2024-07-07 09:14] LABS: Prothrombin Time 10.9 Seconds (9.0-12.2)
[2024-07-07] MEDS: BENZOCAINE 20% (Hurricaine) SPRAY 1 DOSE TOP (09:27)
[2024-07-07] MEDS: fentaNYL CIT INJ 50 mCg/ML AMP 2ML 100 MCG IVP (09:28)
[2024-07-07] MEDS: MIDAZOLAM INJ 1 MG/ML VIAL 2 ML 4 MG IV (09:28)
[2024-07-08 12:26] LABS: Glucose Estimated Average 123 mg/dL (80-131); Hemoglobin A1C 5.9 % Hgb (4.8-6.0)
== END | disposition home or self-care (01) ==
PROVIDERS: PCP Physician Assistant; Referring Provider Internal Medicine Cardiovascular Disease; Visit Provider Internal Medicine Cardiovascular Disease
PROC: (CPT 93312; principal; 2024-07-07 08:00)
DX: I36.9 Nonrheumatic tricuspid valve disorder, unspecified (principal); I10 Essential (primary) hypertension; E78.5 Hyperlipidemia, unspecified; G89.4 Chronic pain syndrome; E66.9 Obesity, unspecified; E11.52 Type 2 diabetes mellitus with diabetic peripheral angiopathy with gangrene
CPT/HCPCS: 36415; 80048; 83036; 83735; 85025; 85610; 85730; 93312; J2250; J3010; J7030; A9270

== ENCOUNTER → 2024-08-20 | Outpatient (CLI) | payer MEDICARE, MEDICAID, SELFPAY ==
--- NOTE | 2024-08-20 12:27 | XR_ITS ---
Examination: Ultrasound-guided needle placement right basilic vein Ultrasound soft tissue upper right arm INDICATIONS: No IV access [address] examination today Date and Time: August 20, 2024 1453 hours. Technique: Informed consent provided. Timeout performed. Skin prepped over the right arm and sterile drape applied. Maximum sterile barrier technique utilized, hand hygiene, sterile ultrasound technique 1% lidocaine administered for local anesthesia. Site right portable ultrasound apparatus utilized to confirm patency of the right basilic vein. Ultrasound images recorded and stored. Utilizing ultrasonographic guidance successful 21-gauge needle puncture into the right basilic vein 0.18 wire guide is introduced through the needle into the vein followed by a 5 [place] catheter Estimated blood loss 0 cc The patient tolerated the procedure well, in satisfactory and stable condition at completion of the procedure Impression: Successful ultrasound-guided needle placement right basilic vein Successful placement 5 [place]ian intravenous catheter
--- NOTE | 2024-08-20 13:00 | XR_ITS ---
Examination: CTA abdominal aorta iliofemoral runoff. 2-D sagittal coronal reconstructions. 3-D reconstructions, vascular December 2024 1343 hours INDICATIONS: Diagnosis atherosclerosis [place] arteries in the extremities, intermittent left leg numbness one year Technique: Multiple CTA images of the abdominal aorta iliofemoral runoff arterial vessels, 2.0 mm slice thickness, post intravenous administration 130 cc [id number] 2-D sagittal coronal reconstructions. 3-D reconstructions, vascular 3-D postprocessing, including vascular maximum intensity projection images, 3-D volume rendering Low dose protocols were performed. One or more of the following dose reduction techniques were used; automated exposure control, adjustment of the mA and/or KV according to patient size, use of iterative reconstruction technique. Findings: Liver is irregular in contour, no focal liver lesions Gallbladder is not visualized Spleen is not enlarged, radial densities at the hilum of the spleen Atrophic pancreas 25 mm right adrenal mass with calcifications Moderate renal parenchymal scar formation No bowel obstruction No diverticulitis Intact urinary bladder No prostatomegaly Abdominal aortic calcification no aneurysmal dilatation No significant stenoses origins celiac superior mesenteric axes or renal arteries Common iliac arteries or external iliac arteries intact Right common femoral artery intact No significant stenoses right superficial femoral artery Right popliteal artery intact 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
--- NOTE | 2024-08-20 14:13 | PC.NURSE ---
Ultrasound guided IV placed by Doctor Melanie due to patient being a hard stick. Successful computed tomography imaging with contrast completed. Patient had not taken metformin since the 10/18/24. Patient is aware to hold his metformin for another 48hrs and to drink plenty of water. Labs were taken at an outside facility yesterday and Bun and Cr were within normal limits and given to internal medicine veterinary technicianapril Sarabia. Patient post scan showed no signs of allergic reaction up to approx 20min prior to leaving via private vehicle accompanied by his at 1400.
== END | disposition home or self-care (01) ==
LOC: SIRX 08-21 07:33
PROVIDERS: PCP Physician Assistant; Referring Provider Student in an Organized Health Care Education/Training Program; Visit Provider Student in an Organized Health Care Education/Training Program
DX: I70.213 Atherosclerosis of native arteries of extremities with intermittent claudication, bilateral legs (principal); E27.8 Other specified disorders of adrenal gland
CPT/HCPCS: 36819; 75635; 77002; 82565; 84520; A4649; Q9967